=== PATIENT | female | born 1960 | race Caucasian/White ===

== ENCOUNTER → 2017-03-10 | Outpatient (CLI) | payer MEDICARE, MEDICAID ==
[~2017-03-10] MED LIST: ALBUAER3 INH; ARIP1TAB12 PO; ASPI81TA22 PO; BENA25TA6; ESTR1TAB78 VAGINAL; FLUO40CA PO; HYDR-3583 PO; HYDR-755 PO; IBUP1TAB7 PO; LINA145C PO; LOVA20TA PO; LUMBAR BACK BRA1 MIS; MELO15TA20 PO; MIRA50TA PO; OMEP20TA30 PO; OMEP20TA93 PO; OMEP40CA2 PO; REST15CA PO; TIZA4CAP3 PO; TRAZ100T10 PO; VAGI10TA VAGINAL
[2017-03-10 15:45] LABS: AUTOMATED NEUTROPHIL # 7.2 TH/MM3 (1.8-7.7); BASOPHIL # 0.1 TH/MM3 (0-0.2); BASOPHIL % 0.5 % (0.0-2.0); EOSINOPHIL # 0.3 TH/MM3 (0-0.4); EOSINOPHIL % 2.5 % (0.0-4.0); HEMATOCRIT 46.2 % (35.0-46.0); HEMO FLAGS DIFF FINAL; LYMPH % 29.4 % (9.0-44.0); LYMPHOCYTE # 3.7 TH/MM3 (1.0-4.8); MEAN CELL VOLUME 98.7 FL (80.0-100.0); MEAN CORPUSCULAR HEMOGLOBIN 32.5 PG (27.0-34.0); MEAN CORPUSCULAR HGB CONC 32.9 % (32.0-36.0); MONO % 10.1 % (0.0-8.0); NEUT % 57.5 % (16.0-70.0); PLATELET COUNT 297 TH/MM3 (150-450); RED BLOOD COUNT 4.68 MIL/MM3 (4.00-5.30); RED CELL DISTRIBUTION WIDTH 14.1 % (11.6-17.2); WHITE BLOOD COUNT 12.5 TH/MM3 (4.0-11.0)
[2017-03-10 15:50] LABS: APTT (PATIENT) 31.1 SEC (24.3-30.1); PROTHROMBIN TIME - PATIENT 10.5 SEC (9.8-11.6)
[2017-03-10 16:15] LABS: ALT (GPT) 39 U/L (10-53); ANION GAP 7 MEQ/L (5-15); AST (GOT) 22 U/L (15-37); BICARBONATE 28.9 MEQ/L (21.0-32.0); BLOOD UREA NITROGEN 21 MG/DL (7-18); CHLORIDE 107 MEQ/L (98-107); GLOMERULAR FILTRATION RATE 43 ML/MIN (>89); GLUCOSE,FASTING 88 MG/DL (74-99); POTASSIUM 4.9 MEQ/L (3.5-5.1); SODIUM (NA) 143 MEQ/L (136-145)
[2017-03-10 16:17] LABS: ALKALINE PHOSPHATASE 115 U/L (45-117); TOTAL BILIRUBIN ADULT 0.3 MG/DL (0.2-1.0)
--- NOTE | 2017-03-10 16:24 | RADRPT ---
EXAM DATE/TIME: 03/10/2017 16:06 [facility] COMPARISON: No previous studies available for comparison. INDICATIONS : Evaluate for pneumonia, pneumothorax, or communicable diseases. Pre op right pelviv mass. MEDICAL HISTORY : None. SURGICAL HISTORY : None. ENCOUNTER: Initial ACUITY: 1 day PAIN SCORE: 0/10 LOCATION: Bilateral chest FINDINGS: PA and lateral views of the chest demonstrate the lungs to be symmetrically aerated without evidence of mass, infiltrate or effusion. The cardiomediastinal contours are unremarkable. Osseous structure s are intact. CONCLUSION: 1. No acute cardiopulmonary findings. Salbador Courtney MD on March 10, 2017 at 16:15 Board Certified Radiologist. This report was verified electronically.
== END ==
LOC: CPRE 14:58
PROVIDERS: ATTEND Obstetrics & Gynecology Gynecologic Oncology
DX: Z01.810 Encounter for preprocedural cardiovascular examination (principal); Z01.811 Encounter for preprocedural respiratory examination; Z01.812 Encounter for preprocedural laboratory examination; R19.09 Other intra-abdominal and pelvic swelling, mass and lump
CPT/HCPCS: 36415; 71020; 80053; 85025; 85610; 85730

== ENCOUNTER 2017-03-27 08:08 | Observation (INO) | payer MEDICARE, MEDICAID ==
[~2017-03-27] VITALS: Ht 160 cm; Wt 87.8 kg
[2017-03-27] VITALS: BP 140/66; PULSE 61; RESP 22; TEMP 99; O2SAT 95
[~2017-03-27 08:08] MED LIST changes: -HYDR-755 PO; -LUMBAR BACK BRA1 MIS; -OMEP20TA30 PO; -OMEP40CA2 PO; -REST15CA PO; -VAGI10TA VAGINAL
[2017-03-27] MEDS ORDERED: POVIDONE IODINE 5% (ANTISEPSIS KIT) 4 APPLICATIONS EACH NARE PRN (09:15)
[2017-03-27] MEDS ORDERED: CHLORHEXIDINE GLUCONATE 2 % 1 PACK (2 CLOTHS) TOPICAL PRN (09:15)
[2017-03-27] MEDS ORDERED: METOPROLOL TARTRATE 25 MG TAB PO PRN (09:15)
[2017-03-27] MEDS ORDERED: SODIUM CHLORID 0.9% 500 ML IV PRN (09:15)
[2017-03-27] MEDS ORDERED: INSULIN HUMAN REGULAR 1,000 UNITS/10 ML VIAL SQ PRN (09:15)
[2017-03-27] MEDS ORDERED: HYDR-755 PO (09:33)
[2017-03-27] MEDS ORDERED: PENI500T PO (10:01)
[2017-03-27] MEDS ORDERED: ceFAZolin 2 GM PREMIX 50 ML ONE (10:04)
[2017-03-27] MEDS ORDERED: HEPARIN SODIUM - SQ 10,000 UNITS/ML VIAL SQ ONE (10:30)
[2017-03-27] MEDS: LACTATED RINGER'S 1000 ML IV PRN ×2 (10:30→12:40)
[2017-03-27] MEDS ORDERED: SODIUM CHLORIDE FLUSH PRN IV FLUSH (10:30)
[2017-03-27] MEDS ORDERED: ceFAZolin 2 GM PREMIX 50 ML IV SCH (10:30)
[2017-03-27] MEDS ORDERED: ONDANSETRON HCL 4 MG/2 ML VIAL IV ONE (12:00)
[2017-03-27] MEDS ORDERED: PHENYLEPH/NS 1000 MCG/10 ML SYR IV ONE (12:00)
[2017-03-27] MEDS ORDERED: ePHEDrine/NS 25 MG/5 ML SYR IV ONE (12:00)
[2017-03-27] MEDS ORDERED: ROCURONIUM INJ 50 MG/5 ML SYRINGE IV PUSH ONE (12:00)
[2017-03-27] MEDS ORDERED: LIDOCAINE HCL 1% PF 5 ML SYRINGE OTHER ONE (12:00)
[2017-03-27] MEDS ORDERED: GLYCOPYRROLATE 1 MG/5 ML SYRINGE IV PUSH ONE (12:00)
[2017-03-27] MEDS ORDERED: DEXAMETHASONE SOD PHOS 4 MG/ML VIAL IV ONE (12:00)
[2017-03-27] MEDS ORDERED: MIDAZOLAM HCL 2 MG/2 ML VIAL IV ONE (12:00)
[2017-03-27] MEDS ORDERED: MORPHINE SULFATE 4 MG/ML INJ IV ONE (12:00)
[2017-03-27] MEDS ORDERED: VECURONIUM BROMIDE 20 MG VIAL IV ONE (12:00)
[2017-03-27] MEDS ORDERED: NORMOSOL R INJ 1,000 ML IV ONE (12:00)
[2017-03-27] MEDS ORDERED: STERILE WATER FOR INJECTION 20 ML VIAL IV ONE (12:00)
[2017-03-27] MEDS ORDERED: PROPOFOL 200 MG/20 ML AMP IV ONE (12:00)
[2017-03-27] MEDS ORDERED: SUGAMMADEX SODIUM 200 MG/2 ML VIAL IV PUSH ONE ×2 (12:27)
[2017-03-27] MEDS ORDERED: LIDOCAINE 1%/EPINEPHrine 1:100,000 SOLN 20 ML VIAL ONE (13:05)
[2017-03-27] MEDS ORDERED: OMEP20TA93 PO (14:34)
[2017-03-27] MEDS ORDERED: ONDANSETRON HCL 4 MG/2 ML VIAL IVP PRN (15:45)
[2017-03-27] MEDS ORDERED: SODIUM CHLORIDE 0.9% FLUSH 10 ML FLUSH IV FLUSH PRN (15:45)
[2017-03-27] MEDS ORDERED: traZODone HCL 100 MG TAB PO PRN (15:45)
[2017-03-27] MEDS ORDERED: hydrOXYzine HCL 10 MG TAB PO PRN (15:45)
[2017-03-27] MEDS ORDERED: oxyCODONE/ACETAMINOPHEN 5 MG/325 MG TAB PO PRN ×2 (15:45)
[2017-03-27] MEDS ORDERED: PILL SPLITTER OTHER PRN (15:45)
[2017-03-27] MEDS ORDERED: DO NOT ADM ANY ANTICOAGULANT DRUGS PRN (15:50)
[2017-03-27] MEDS ORDERED: *morphine SULFATE 8 MG/ML PERIprocedure ONLY ONE ×2 (16:03→17:14)
[2017-03-27] MEDS: RESP: ALBUTEROL 2.5 MG/3 ML NEB (SCH) NEB ×2 (16:30→22:00)
[2017-03-27] MEDS: KETOROLAC TROMETHAMINE 30 MG/ML (IVP) VIAL IVP SCH ×2 (16:30→22:35)
[2017-03-27] MEDS ORDERED: BACITRACIN TOP OINT 15 GM TUBE ONE (17:10)
[2017-03-27] MEDS: D5-1/2 NS + KCL 20 MEQ INJ 1,000 ML IV SCH (18:29)
[2017-03-27 20:00] VITALS: BP 148/74; PULSE 75; RESP 22; TEMP 99.2; O2SAT 96
[2017-03-27] MEDS ORDERED: PRAVASTATIN SOD 20 MG TAB PO SCH (21:00)
[2017-03-27] MEDS: SODIUM CHLORIDE 0.9% FLUSH 10 ML FLUSH IV FLUSH SCH (22:32)
[2017-03-27] MEDS: SODIUM CHLORIDE FLUSH BID IV FLUSH SCH (22:32)
[2017-03-27] MEDS: PANTOPRAZOLE SOD 20 MG DELAYED RELEASE TAB PO SCH (22:35)
[2017-03-28 04:00] VITALS: BP 133/61; PULSE 75; RESP 20; TEMP 98.7; O2SAT 95
[2017-03-28] MEDS: KETOROLAC TROMETHAMINE 30 MG/ML (IVP) VIAL IVP SCH ×2 (04:14→09:10)
[2017-03-28] MEDS: D5-1/2 NS + KCL 20 MEQ INJ 1,000 ML IV SCH (04:17)
[2017-03-28] MEDS: RESP: ALBUTEROL 2.5 MG/3 ML NEB (SCH) NEB ×2 (04:28→09:16)
[2017-03-28 04:30] VITALS: O2SAT 96
[2017-03-28] MEDS ORDERED: OXYC1TAB63 PO (06:27)
[2017-03-28 07:52] LABS: AUTOMATED NEUTROPHIL # 13.6 TH/MM3 (1.8-7.7); BASOPHIL # 0.1 TH/MM3 (0-0.2); BASOPHIL % 0.8 % (0.0-2.0); EOSINOPHIL % 0.2 % (0.0-4.0); HEMATOCRIT 39.6 % (35.0-46.0); HEMO FLAGS DIFF FINAL; LYMPH % 18.7 % (9.0-44.0); LYMPHOCYTE # 3.4 TH/MM3 (1.0-4.8); MEAN CELL VOLUME 97.2 FL (80.0-100.0); MEAN CORPUSCULAR HEMOGLOBIN 32.2 PG (27.0-34.0); MEAN CORPUSCULAR HGB CONC 33.1 % (32.0-36.0); MONO % 5.4 % (0.0-8.0); NEUT % 74.9 % (16.0-70.0); PLATELET COUNT 244 TH/MM3 (150-450); RED BLOOD COUNT 4.07 MIL/MM3 (4.00-5.30); RED CELL DISTRIBUTION WIDTH 13.3 % (11.6-17.2); WHITE BLOOD COUNT 18.2 TH/MM3 (4.0-11.0)
[2017-03-28 08:00] VITALS: BP 135/73; PULSE 64; RESP 19; TEMP 98.3; O2SAT 94
[2017-03-28 08:29] LABS: BICARBONATE 24.6 MEQ/L (21.0-32.0); POTASSIUM 4.1 MEQ/L (3.5-5.1)
[2017-03-28] MEDS ORDERED: FLUoxetine HCL 20 MG CAP PO SCH (09:00)
[2017-03-28] MEDS ORDERED: ARIPiprazole 5 MG TAB PO SCH (09:00)
[2017-03-28] MEDS ORDERED: Linaclotide (Linzess) 145 MCG PO SCH (09:00)
[2017-03-28] MEDS: PANTOPRAZOLE SOD 20 MG DELAYED RELEASE TAB PO SCH (09:09)
[2017-03-28] MEDS: SODIUM CHLORIDE FLUSH BID IV FLUSH SCH (09:10)
[2017-03-28] MEDS: SODIUM CHLORIDE 0.9% FLUSH 10 ML FLUSH IV FLUSH SCH (09:10)
[2017-03-28 09:17] VITALS: O2SAT 95
[2017-03-28 10:10] VITALS: RESP 18
--- NOTE | 2017-03-28 11:36 | MP ---
cc: DANNA YEBOAH MD, KELLY L. MD DATE OF SURGERY 03/27/2017 PREOPERATIVE DIAGNOSIS Right ovarian mass. POSTOPERATIVE DIAGNOSIS Right ovarian mass. PROCEDURE Robotic-assisted laparoscopic bilateral salpingo-oophorectomy. SURGEON Anai Chiang MD CLOTH EXAMINER Greer orthopedic assistant ANESTHESIA General endotracheal anesthesia ESTIMATED BLOOD LOSS 50 cc IV FLUIDS 1200 cc URINE OUTPUT 450 cc HISTORY This is a 56-year-old female found on exam and imaging to have a complex right ovarian mass approximately 4 cm in greatest dimension. She had some calcifications raising the radiographic possibility of a dermoid. The contralateral tube and ovary appeared OK with some leiomyomas in the uterus, but she has had no postmenopausal bleeding or other symptomatology. She was counseled regarding options. She was in favor of surgery. She was seen in the preop holding area where we again discussed the pros and cons of removing both tubes and ovaries and/or hysterectomy in the setting of both benign and malignant findings. Discussion ensued, questions were answered. She was in favor of having both tubes and ovaries removed given that she is menopausal and wishes to prevent future problems in the other ovary even if the mass is benign. However, in the setting of benign finding, she wished to keep her surgery as conservative as possible and wished to maintain her uterus and cervix and did not want a hysterectomy unless malignancy was present. In the setting of malignancy, she agreed to bilateral salpingo-oophorectomy, hysterectomy, staging biopsies as indicated. FINDINGS The right ovary was enlarged approximately 4 cm complex in nature with a solid smooth surface component. There were minimal adhesions of the ovary to the right pelvic sidewall. The fallopian tubes appeared normal bilaterally and the left ovary appeared normal. The uterus had some prominence that appeared to be leiomyomas. There are no peritoneal implants, no adenopathy and no other changes to suggest malignancy. 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 No evidence of malignancy. PROCEDURE She was taken to the operating room, placed in the dorsolithotomy position after general endotracheal anesthesia was administered. A time-out was undertaken. She was identified by sight recognition and hospital ID bracelet and the proposed procedure was reviewed and confirmed. She was carefully positioned in padded Issac stirrups. Her arms were padded and secured to her sides. She was secured to the operating table with egg crate padding and tape in a cross the chest over the shoulder fashion. All sites were noted to be properly aligned with no malalignments or pressure points. She was prepped and draped in a sterile fashion, placed in high lithotomy position. The cervix was grasped, uterine cavity sounded. Cervix dilated and a small V-Care manipulator was inserted and secured in the usual fashion. Galindo catheter placed in the bladder. She was returned to low lithotomy position, a change of sterile gloves was undertaken and we completed draping in anticipation of laparoscopy. After confirming that an orogastric tube was in the stomach on suction with manual elevation of the abdominal wall and direct laparoscopic visualization, a 5 mm cannula placed in the left upper quadrant and an atraumatic entry was confirmed. Carbon dioxide gas was insufflated and under laparoscopic visualization, a 12-mm cannula placed in midline above the umbilicus. An 8 mm cannulas was in the right upper quadrant, left lateral quadrant and the original five exchanged for a 8-mm cannula. She was placed in Trendelenburg position. Peritoneal washings were obtained for cytology. Small bowel was folded back on its mesenteric root. Three Ray-Eddie sponges were placed around the root of small bowel mesentery. The robotic system was brought into the operative field and attached in the usual fashion. Monopolar scissors, fenestrated bipolar forceps and Prograsp manipulators were placed in arms number one, two and three respectively and took my place at the surgeon's console. The right retroperitoneal dissection was carried out. The right ureter was identified. The right infundibulopelvic ligament was isolated. The intervening peritoneum was opened. The infundibulopelvic ligament was cauterized at the level of the pelvic brim and transected. The dissection was carried distally toward the uterus until the right utero-ovarian ligament was isolated which was then cauterized and transected thereby removing the right tube and ovary which were placed in the right pericolic gutter for later retrieval. Similar steps were carried out of the left side where the left retroperitoneal dissection was carried out. The left ureter was identified. The left infundibulopelvic ligament was isolated. The infundibulopelvic ligament was isolated to the level of the pelvic brim where it was cauterized and transected. Dissection was carried distally toward the uterus until the left utero-ovarian ligament was isolated, cauterized and transected thereby removing the left tube and ovary which were placed in the right pericolic gutter for later retrieval. Small bleeders rendered hemostatic with bipolar cautery. Hemostatic Surgicel powder was placed in the dissection areas on the lateral sides of each of the ureters and given the benign appearance and pending pathology, it was felt that all reasonable surgical objectives had been completed. The robotic instruments were removed. The robotic system was disengaged from the operative field. I reentered the bedside under sterile condition. Each of the three Ray-Eddie sponges were removed separately each were inspected and noted to be removed in their entirety. A 12 cm EndoCatch bag was introduced and deployed. Both tubes and ovaries were placed in the EndoCatch bag and the bag was closed, brought up to the abdominal wall through the 12 mm incision. Using ring forceps and graspers, the tissue was removed. The intact left tube and ovary were isolated and removed and sent for permanent histopathologic analysis and the remaining pieces of the right tube and ovary were removed still intact within the bag and this was sent for frozen section analysis. Inspection confirmed all sites were hemostatic. There were no remaining foreign objects in the peritoneal cavity. Preliminary counts were correct and attention was directed toward closing. The 12 mm fascial defect closed using the fascia closure device with 0 Vicryl sutures tied securely rendered the fascia completely hemostatic and airtight. The remaining cannulas were withdrawn. Carbon dioxide gas was removed from the peritoneal cavity. 3-0 Vicryl subcutaneous, 3-0 Vicryl subcuticular and Steri-Strips used to close these incisions. She was returned to dorsolithotomy position. The V-Care manipulator was removed. The suture site which rendered hemostatic with topical silver nitrate. There were no remaining foreign objects in the vagina. Final counts were correct. 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 Therefore, she was returned to dorsal supine position and was pending reversal of anesthesia when I left the operating room to precede her to the Post Anesthesia Care Unit. MD BRANDON Sheppard/RASHEL /8:27 AM /11:10 AM
--- NOTE | 2017-03-28 22:24 | MD ---
cc: DANNA YEBOAH MD, KELLY L. MD ADMISSION DATE: 03/27/2017 DISCHARGE DATE: 03/28/2017 PROCEDURE 03/27/2017 - robotic-assisted laparoscopic bilateral salpingo-oophorectomy. HOSPITAL COURSE She did well in the early postop period. Hemodynamically stable. Ins and outs 2200 over 650. Labs pending at the time of this dictation. PHYSICAL EXAMINATION VITAL SIGNS: Afebrile, pulse 68-75, respirations 16-22, blood pressure 130-149 over 52-74, O2 saturations greater than or equal to 95%. GENERAL: Alert and oriented x3. LUNGS: Clear except for mild basilar rales. CARDIOVASCULAR: Regular rate and rhythm. ABDOMEN: Soft. Incision is clean and dry. HORTICULTURE SUPERVISOR: no bleeding. EXTREMITIES: Nontender. ASSESSMENT Postop day #1 findings at surgery, preliminary pathology discussed and reviewed. activities and restrictions reviewed. Questions were answered. She expressed good understanding. PLAN Anticipate discharge to home. She is to resume prior medications. She will have prescription for Percocet. She is to contact our office to schedule follow up in 2 weeks and our office number is made available should she have any questions or problems between now and the time of scheduled followup. MD BRANDON Sheppard/ /6:28 AM /10:12 PM
[2017-03-30] MEDS ORDERED: OMEP20TA93 PO (14:42)
[2017-04-02] MEDS ORDERED: OMEP20CA2 PO (19:20)
== END 2017-03-28 12:10 | disposition home or self-care (01) ==
LOC: HSDC 08:08 → HSDI 15:38 → N07A 18:05
PROVIDERS: ADMIT Obstetrics & Gynecology Gynecologic Oncology; ATTEND Obstetrics & Gynecology Gynecologic Oncology
DX: D27.0 Benign neoplasm of right ovary (principal); N83.8 Other noninflammatory disorders of ovary, fallopian tube and broad ligament; E78.5 Hyperlipidemia, unspecified; M79.7 Fibromyalgia; K58.9 Irritable bowel syndrome, unspecified; Q05.9 Spina bifida, unspecified; Z79.899 Other long term (current) drug therapy
CPT/HCPCS: 58661; 80048; 85025; 86850; 86900; 86901; 88112; 88305; 88307; 88331; 94150; 94640; 94664; 96365; 96366; 96375; 96376; G0378; J0690; J1100; J1644; J1885; J2250; J2270; J2370; J2405; J3010; J3480; J7120; J7613; S2900

== ENCOUNTER 2017-06-03 12:46 | Inpatient (IN) | payer MEDICARE, MEDICAID ==
[~2017-06-03] VITALS: Ht 160 cm; Wt 85.0 kg
[~2017-06-03 12:46] MED LIST changes: +HYDR-755 PO; +OMEP20CA2 PO; -OMEP20TA93 PO; +OXYC1TAB63 PO; +PENI500T PO
[2017-06-03 12:52] VITALS: BP 126/79; PULSE 86; RESP 20; TEMP 98.7; O2SAT 97
[2017-06-03] MEDS ORDERED: SODIUM CHLOR 0.9% 1000 ML INJ 1,000 ML IV ONE (13:30)
[2017-06-03] MEDS ORDERED: ONDANSETRON HCL 4 MG/2 ML VIAL IV PUSH ONE (13:30)
[2017-06-03] MEDS ORDERED: MORPHINE SULFATE 4 MG/ML INJ IV PUSH ONE ×2 (13:30→16:45)
--- NOTE | 2017-06-03 13:35 | PD ---
HPI Chief Complaint: Abdominal Pain Time Seen by Provider: 13:10 Travel History International Travel<30 days: No Contact w/Intl Traveler<30days: No Traveled to known affect area: No History of Present Illness HPI 56-year-old female with a history of chronic bronchitis, spina bifida occulta(? ) and depression presents emergency department complaining of midepigastric pain that radiates to the back, nausea, vomiting for approximately 3 days. Patient states she was watching TV when the pain started and describes the pain as sharp, "keweenaw claws", squeezing and constant. Patient states that the pain has been worsening over the last couple days which is the reason she is here today. States the pain is moderate and nothing seems to relieve or worsen her pain. Patient states that she has been trying to eat chicken broth however, she is persistently nauseous. Patient denies hematochezia, melena, hematemesis. Says her bowel movements have been normal for her. Patient states that she smokes half a pack per day and drinks alcohol approximately once a month. Patient denies cardiac history. States she had a partial hysterectomy in April this year. PFSH Past Medical History Arthritis: No Asthma: Yes Anxiety: Yes Depression: Yes Heart Rhythm Problems: No Cancer: No Cardiovascular Problems: No High Cholesterol: Yes Chest Pain: No Congestive Heart Failure: No Diabetes: No Diminished Hearing: No Endocrine: No Gastrointestinal Disorders: Yes GERD: Yes Genitourinary: Yes (Incontinent of urine) Hepatitis: No Hiatal Hernia: No Immune Disorder: No Musculoskeletal: No Neurologic: Yes (spina bifida) Psychiatric: No Reproductive: No Respiratory: No Migraines: Yes Thyroid Disease: No Ulcer: Yes Tetanus Vaccination: > 5 Years Influenza Vaccination: No ?: Not Menopausal: Yes Past Surgical History Abdominal Surgery: Yes (colonoscopy) AICD: No Cardiac Surgery: No Ear Surgery: No Endocrine Surgery: No Eye Surgery: No Genitourinary Surgery: No Gynecologic Surgery: No Hysterectomy: Yes Joint Replacement: No Oral Surgery: No Pacemaker: No Thoracic Surgery: No Other Surgery: No Social History Alcohol Use: No Tobacco Use: No Substance Use: No Allergies-Medications (Allergen,Severity, Reaction): Coded Allergies: No Known Allergies (Unverified , 06/03/17) Reported Meds & Prescriptions Reported Meds & Active Scripts Active Omeprazole 20 Mg Cap 20 Mg PO BID Oxycodone-Acetaminophen 5-325 (Oxycodone HCl/Acetaminophen) 5 Mg-325 Mg Tablet 1 Tab PO Q4H PRN Myrbetriq (Mirabegron) 50 Mg Tab 50 Mg PO DAILY Trazodone (Trazodone HCl) 100 Mg Tablet 200 Mg PO HS PRN Lovastatin 20 Mg Tab 20 Mg PO HS Proair Hfa 8.5 GM Inh (Albuterol Sulfate) 90 Mcg/Act Aer 1 Puff INH Q6HR PRN 108 mcg/actuation Reported Hydroxyzine HCl 10 Mg Tab 10 Mg PO TID PRN Ibuprofen 800 Mg Tab 800 Mg PO TID Aspirin EC Low Dose (Aspirin) 81 Mg Tabec 81 Mg PO DAILY Meloxicam 15 Mg Tab 15 Mg PO DAILY Yuvafem Vaginal Tab (Estradiol Vaginal Tab) 10 Mcg Tab 10 Mcg VAGINAL 2XWEEK Tizanidine (Tizanidine HCl) 4 Mg Cap 4 Mg PO TID Hydrocodone-Acetaminophen 10-325 mg Tab PO Q4H PRN Benadryl Allergy (Diphenhydramine HCl) 25 Mg Tablet 25 Mg PRN Linzess (Linaclotide) 145 Mcg Cap 145 Mcg PO DAILY Fluoxetine (Fluoxetine HCl) 40 Mg Cap 40 Cap PO DAILY Aripiprazole 10 Mg Tab 5 Mg PO DAILY Review of Systems Except as stated in HPI: all other systems reviewed are Neg Physical Exam Narrative GENERAL: Well-developed well-nourished no apparent distress SKIN: Focused skin assessment warm/dry. HEAD: Atraumatic. Normocephalic. EYES: Pupils equal and round. No scleral icterus. No injection or drainage. ENT: No nasal bleeding or discharge. Mucous membranes pink and moist. NECK: Trachea midline. No JVD. CARDIOVASCULAR: Regular rate and rhythm. No murmur appreciated. RESPIRATORY: No accessory muscle use. Clear to auscultation. Breath sounds equal bilaterally. GASTROINTESTINAL: Abdomen soft, diffusely tender to percussion and palpation, no masses. 3 scars mid abdomen consistent with patient's recent history of partial hysterectomy. MUSCULOSKELETAL: No obvious deformities. No clubbing. No cyanosis. No edema. No CVA tenderness NEUROLOGICAL: Awake and alert. No obvious cranial nerve deficits. Motor grossly within normal limits. Normal speech. PSYCHIATRIC: Appropriate mood and affect; insight and judgment normal. Data Data Last Documented VS Vital Signs Date Time Temp Pulse Resp B/P (MAP) Pulse Ox O2 Delivery O2 Flow Rate FiO2 06/03/17 15:32 76 19 102/59 (73) 97 Room Air 06/03/17 12:52 98.7 Orders Orders Electrocardiogram (06/03/17 ) Complete Blood Count With Diff (06/03/17 13:21) Comprehensive Metabolic Panel (06/03/17 13:21) Prothrombin Time / Inr (Pt) (06/03/17 13:21) Act Partial Throm Time (Ptt) (06/03/17 13:21) Troponin I (06/03/17 13:21) Lipase (06/03/17 13:21) Chest, Single Ap (06/03/17 13:21) Morphine Inj (Morphine Inj) (06/03/17 13:30) Ondansetron Inj (Zofran Inj) (06/03/17 13:30) Sodium Chlor 0.9% 1000 Ml Inj (Ns 1000 M (06/03/17 13:30) Us Abdomen Gallbladder (06/03/17 ) Urinalysis - C+S If Indicated (06/03/17 15:25) Admit To Inpatient (06/03/17 ) Code Status (06/03/17 16:03) Vital Signs (Adult) Q4H (06/03/17 16:03) Activity Oob Ad Jami (06/03/17 16:03) Unmanned Equipment Operator / Telemetry .CONTINUOUS (06/03/17 16:03) Intake + Output LAURO.QSHIFT (06/03/17 16:03) Notify Dr: Other (06/03/17 16:03) Sodium Chlor 0.9% 1000 Ml Inj (Ns 1000 M (06/03/17 16:03) Sodium Chloride 0.9% Flush (Ns Flush) (06/03/17 16:15) Sodium Chloride 0.9% Flush (Ns Flush) (06/03/17 21:00) Acetaminophen (Tylenol) (06/03/17 16:15) Ondansetron Inj (Zofran Inj) (06/03/17 16:15) Basic Metabolic Panel (Bmp) (06/04/17 06:00) Complete Blood Count With Diff (06/04/17 06:00) Creatine Kinase (Cpk) (06/03/17 16:03) Creatine Kinase (Cpk) (06/03/17 22:03) Troponin I (06/03/17 16:03) Troponin I (06/03/17 22:03) Blood Culture (06/03/17 16:03) Resp Oxygen Jackson C Titrat 1-4 L (06/03/17 ) Case Management Consult (06/03/17 16:03) Scd Bilateral/Knee High LAURO.BID (06/03/17 16:03) Naloxone Inj (Narcan Inj) (06/03/17 16:15) Sennosides (Senokot) (06/03/17 16:15) Bisacodyl Supp (Dulcolax Supp) (06/03/17 16:15) Lactulose Liq (Lactulose Liq) (06/03/17 16:15) Inpatient Certification (06/03/17 ) Consult General Surgery (06/03/17 ) Piperacil-Tazo 3.375 Gm Premix (Zosyn 3. (06/03/17 17:00) Admit Order (Ed Use Only) (06/03/17 ) Labs Laboratory Tests Test 06/03/17 13:25 06/03/17 14:25 Blood Urea Nitrogen 13 MG/DL Creatinine 1.17 MG/DL Random Glucose 142 MG/DL Total Protein 7.5 GM/DL Albumin 2.9 GM/DL Calcium Level 9.4 MG/DL Alkaline Phosphatase 299 U/L Aspartate Amino Transf (AST/SGOT) 102 U/L Alanine Aminotransferase (ALT/SGPT) 101 U/L Total Bilirubin 3.0 MG/DL Sodium Level 138 MEQ/L Potassium Level 3.8 MEQ/L Chloride Level 106 MEQ/L Carbon Dioxide Level 23.7 MEQ/L Anion Gap 8 MEQ/L Estimat Glomerular Filtration Rate 48 ML/MIN Troponin I LESS THAN 0.02 NG/ML Lipase 57 U/L White Blood Count 17.0 TH/MM3 Red Blood Count 3.78 MIL/MM3 Hemoglobin 12.5 GM/DL Hematocrit 36.5 % Mean Corpuscular Volume 96.6 FL Mean Corpuscular Hemoglobin 33.0 PG Mean Corpuscular Hemoglobin Concent 34.2 % Red Cell Distribution Width 13.6 % Platelet Count 248 TH/MM3 Mean Platelet Volume 9.1 FL Neutrophils (%) (Auto) 83.8 % Lymphocytes (%) (Auto) 8.1 % Monocytes (%) (Auto) 7.2 % Eosinophils (%) (Auto) 0.5 % Basophils (%) (Auto) 0.4 % Neutrophils # (Auto) 14.2 TH/MM3 Lymphocytes # (Auto) 1.4 TH/MM3 Monocytes # (Auto) 1.2 TH/MM3 Eosinophils # (Auto) 0.1 TH/MM3 Basophils # (Auto) 0.1 TH/MM3 CBC Comment DIFF FINAL Differential Comment Prothrombin Time 10.8 SEC Prothromb Time International Ratio 1.1 RATIO Activated Partial Thromboplast Time 35.0 SEC MDM Medical Decision Making Medical Screen Exam Complete: Yes Emergency Medical Condition: Yes Differential Diagnosis Pancreatitis, cholecystitis, gastritis Narrative Course 56-year-old female with a history of chronic bronchitis, spina bifida occulta(? ) and depression presents emergency department complaining of midepigastric pain that radiates to the back, nausea, vomiting for approximately 3 days. Patient states she was watching TV when the pain started and describes the pain as sharp, "keweenaw claws", squeezing and constant. Patient states that the pain has been worsening over the last couple days which is the reason she is here today. States the pain is moderate and nothing seems to relieve or worsen her pain. Patient states that she has been trying to eat chicken broth however, she is persistently nauseous. Patient denies hematochezia, melena, hematemesis. Patient states that she smokes half a pack per day and drinks alcohol approximately once a month. Patient denies cardiac history. According to ODELL Dawson, EVAC placed her on oxygen as she was "profusely diuretic". Patient is not normally on oxygen at home. She remains 97% on RA, O2 DC'd. Morphine, Zofran, normal saline IV bolus administered. EKG demonstrates sinus rhythm. Possible T-wave inversions which is a change from February 2017 in V2 and V3. Cardiac enzymes negative. CT abdomen pelvis canceled in lieu of an ultrasound. Please see Dr. Darby's note for more information and dispo. Condition: Stable Raysa Connell Jun 03, 2017 13:35
[2017-06-03 14:12] LABS: ALBUMIN 2.9 GM/DL (3.4-5.0); ALT (GPT) 101 U/L (10-53); AST (GOT) 102 U/L (15-37); BICARBONATE 23.7 MEQ/L (21.0-32.0); BLOOD UREA NITROGEN 13 MG/DL (7-18); CALCIUM 9.4 MG/DL (8.5-10.1); CHLORIDE 106 MEQ/L (98-107); CREATININE 1.17 MG/DL (0.50-1.00); GLOMERULAR FILTRATION RATE 48 ML/MIN (>89); GLUCOSE,RANDOM 142 MG/DL (74-106); SODIUM (NA) 138 MEQ/L (136-145)
[2017-06-03 14:14] LABS: ALKALINE PHOSPHATASE 299 U/L (45-117); TOTAL PROTEIN 7.5 GM/DL (6.4-8.2); TROPONIN I LESS THAN 0.02 NG/ML (0.02-0.05)
[2017-06-03 15:07] LABS: AUTOMATED NEUTROPHIL # 14.2 TH/MM3 (1.8-7.7); BASOPHIL # 0.1 TH/MM3 (0-0.2); BASOPHIL % 0.4 % (0.0-2.0); EOSINOPHIL # 0.1 TH/MM3 (0-0.4); EOSINOPHIL % 0.5 % (0.0-4.0); HEMATOCRIT 36.5 % (35.0-46.0); HEMOGLOBIN 12.5 GM/DL (11.6-15.3); LYMPH % 8.1 % (9.0-44.0); LYMPHOCYTE # 1.4 TH/MM3 (1.0-4.8); MEAN CELL VOLUME 96.6 FL (80.0-100.0); MEAN CORPUSCULAR HGB CONC 34.2 % (32.0-36.0); MEAN PLATELET VOLUME 9.1 FL (7.0-11.0); MONO % 7.2 % (0.0-8.0); MONOCYTE # 1.2 TH/MM3 (0-0.9); NEUT % 83.8 % (16.0-70.0); PLATELET COUNT 248 TH/MM3 (150-450); RED BLOOD COUNT 3.78 MIL/MM3 (4.00-5.30); RED CELL DISTRIBUTION WIDTH 13.6 % (11.6-17.2)
[2017-06-03 15:19] LABS: INTERNATIONAL NORMALIZED RATIO 1.1 RATIO; PROTHROMBIN TIME - PATIENT 10.8 SEC (9.8-11.6)
[2017-06-03 15:32] VITALS: BP 102/59; PULSE 76; RESP 19; O2SAT 97
--- NOTE | 2017-06-03 15:37 | RADRPT ---
EXAM DATE/TIME: 06/03/2017 15:08 [facility] COMPARISON: US ABDOMEN - PANCREAS, November 16, 2012, 16:42. EXTERNAL COMPARISON : [facility] CT ABDOMEN W/O CONTRAST, December 07, 2009CT ABDOMEN AND PELVI S W/CONTRAST, 2016. INDICATIONS : Right upper quadrant pain. MEDICAL HISTORY : Hypercholesterolemia. Gastroesophageal reflux disease. Glasses. Spina bifida. Migraine. Hyperlipide khari. Asthma. Ulcer. Fibromyalgia. Anxiety. Depression. SURGICAL HISTORY : Hysterectomy. Colonoscopy. ENCOUNTER: Subsequent ACUITY: 1 week PAIN SCORE: 8/10 LOCATION: Right upper quadrant MEASUREMENTS: LIVER: 14.0 cm length COMMON DUCT: 5 mm RIGHT KIDNEY: 10.3 x 3.3 x 4.4 cm FINDINGS: LIVER: Normal echotexture without focal lesion or ductal dilatation. COMMON DUCT: No intraluminal mass or stone visualized. GALLBLADDER: The gallbladder wall is thickened at 4-5 mm. There is sludge within the gallbladder and multiple mobi le gallstones the largest at the neck measuring 3.4 cm in size. There is no pericholecystic fluid PANCREAS: The visualized portions are within normal limits. RIGHT KIDNEY: No evidence of hydronephrosis, stone, or mass. CONCLUSION: Sludge and stones in the gallbladder with thickened wall consistent with cholecystitis. Otherwise neg ative exam Lito Burnett MD on June 03, 2017 at 15:31 Board Certified Radiologist. This report was verified electronically.
--- NOTE | 2017-06-03 15:47 | RADRPT ---
EXAM DATE/TIME: 06/03/2017 14:17 [facility] COMPARISON: CHEST PA & LAT, March 10, 2017, 16:06. INDICATIONS : Chest pain. MEDICAL HISTORY : None. SURGICAL HISTORY : None. ENCOUNTER: Initial ACUITY: 1 day PAIN SCORE: 10/10 LOCATION: Bilateral chest FINDINGS: A single view of the chest demonstrates the lungs to be symmetrically aerated without evidence of mas s, infiltrate or effusion. The cardiomediastinal contours are unremarkable. Osseous structures are intact. CONCLUSION: No acute disease. No significant change has occurred. Lito Burnett MD on June 03, 2017 at 15:44 Board Certified Radiologist. This report was verified electronically.
[2017-06-03] MEDS: SODIUM CHLOR 0.9% 1000 ML INJ 1,000 ML IV SCH (16:03)
[2017-06-03] MEDS ORDERED: BISACODYL 10 MG SUPP RECTAL PRN (16:15)
[2017-06-03] MEDS ORDERED: ACETAMINOPHEN 325 MG TAB PO PRN (16:15)
[2017-06-03] MEDS ORDERED: NALOXONE HCL 0.4 MG/ML AMP IV PUSH PRN (16:15)
--- NOTE | 2017-06-03 16:25 | HHI.HP ---
HPI Service [facility] Primary Care Physician Unknown Admission Diagnosis Diagnoses: Chief Complaint: Abdominal Pain Travel History International Travel<30 Days: No Contact w/Intl Traveler <30 Da: No Traveled to Known Affected Are: No History of Present Illness This is a pleasant 56-year-old female with chronic Bronchitis, Spina bifida occulta, Depression show came to ER with Abdominal pain midepigastric that radiates to the back, nausea and Vomit for the last three days, described as Sharp sensation. Patient states that the pain has been worsening over the last couple days, Patient denies hematochezia, melena, hematemesis. Says her bowel movements have been normal for her. Patient states that she smokes half a pack per day and drinks alcohol approximately once a month. Patient denies cardiac history. States she had a partial hysterectomy in April this year. Patient status post Abdominal Ultrasound found Cholecystitis and Cholelithiasis , will have surgery tomorrow. Review of Systems Constitutional: DENIES: Fever, Chills, Change in appetite Endocrine: DENIES: Heat/cold intolerance Eyes: DENIES: Blurred vision, Eye pain Gastrointestinal: COMPLAINS OF: Abdominal pain, Nausea, Vomiting Except as stated in HPI: all other systems reviewed are Neg Past Family Social History Past Medical History OA COPD Anxiety disorder Hyperlipidemia GERD Spina Bifida Occulta Overactive bladder Depression Past Surgical History Partial Hysterectomy Reported Medications Reported Meds & Active Scripts Active Omeprazole 20 Mg Cap 20 Mg PO BID Oxycodone-Acetaminophen 5-325 (Oxycodone HCl/Acetaminophen) 5 Mg-325 Mg Tablet 1 Tab PO Q4H PRN Myrbetriq (Mirabegron) 50 Mg Tab 50 Mg PO DAILY Trazodone (Trazodone HCl) 100 Mg Tablet 200 Mg PO HS PRN Lovastatin 20 Mg Tab 20 Mg PO HS Proair Hfa 8.5 GM Inh (Albuterol Sulfate) 90 Mcg/Act Aer 1 Puff INH Q6HR PRN 108 mcg/actuation Reported Hydroxyzine HCl 10 Mg Tab 10 Mg PO TID PRN Ibuprofen 800 Mg Tab 800 Mg PO TID Aspirin EC Low Dose (Aspirin) 81 Mg Tabec 81 Mg PO DAILY Meloxicam 15 Mg Tab 15 Mg PO DAILY Yuvafem Vaginal Tab (Estradiol Vaginal Tab) 10 Mcg Tab 10 Mcg VAGINAL 2XWEEK Tizanidine (Tizanidine HCl) 4 Mg Cap 4 Mg PO TID Hydrocodone-Acetaminophen 10-325 mg Tab PO Q4H PRN Benadryl Allergy (Diphenhydramine HCl) 25 Mg Tablet 25 Mg PRN Linzess (Linaclotide) 145 Mcg Cap 145 Mcg PO DAILY Fluoxetine (Fluoxetine HCl) 40 Mg Cap 40 Cap PO DAILY Aripiprazole 10 Mg Tab 5 Mg PO DAILY Allergies: Coded Allergies: No Known Allergies (Unverified , 06/03/17) Active Ordered Medications Current Medications Medications (Trade) Dose Ordered Sig/Jose Route Start Time Stop Time Status Last Admin Sodium Chloride 1,000 ml @ 100 mls/hr Q10H IV 06/03/17 16:03 (NS Flush) 2 ml UNSCH PRN IV FLUSH 06/03/17 16:15 (NS Flush) 2 ml BID IV FLUSH 06/03/17 21:00 (Tylenol) 650 mg Q4H PRN PO 06/03/17 16:15 (Zofran Inj) 4 mg Q6H PRN IVP 06/03/17 16:15 (Narcan Inj) 0.4 mg UNSCH PRN IV PUSH 06/03/17 16:15 (Senokot) 17.2 mg Q12H PRN PO 06/03/17 16:15 (Dulcolax Supp) 10 mg DAILY PRN RECTAL 06/03/17 16:15 (Lactulose Liq) 30 ml DAILY PRN PO 06/03/17 16:15 Piperacillin Sod/ Tazobactam Sod 50 ml @ 100 mls/hr Q6H IV 06/03/17 17:00 Family History Mother and Father with Hypertension Social History Tobacco dependence half pack of cigarettes daily Physical Exam Vital Signs Vital Signs Date Time Temp Pulse Resp B/P (MAP) Pulse Ox O2 Delivery O2 Flow Rate FiO2 06/03/17 15:32 76 19 102/59 (73) 97 Room Air 06/03/17 12:52 98.7 86 20 126/79 (95) 97 Physical Exam GENERAL: Obese patient in no acute distress. SKIN: Focused skin assessment warm/dry. HEAD: Atraumatic. Normocephalic. EYES: Pupils equal and round. No scleral icterus. No injection or drainage. ENT: No nasal bleeding or discharge. Mucous membranes pink and moist. NECK: Trachea midline. No JVD. CARDIOVASCULAR: Regular rate and rhythm. No murmur appreciated. RESPIRATORY: No accessory muscle use. Clear to auscultation. Breath sounds equal bilaterally. GASTROINTESTINAL: Sort, tender on diffuse palpation. MUSCULOSKELETAL: No obvious deformities. No clubbing. No cyanosis. No edema. No CVA tenderness NEUROLOGICAL: Awake and alert. No obvious cranial nerve deficits. Motor grossly within normal limits. Normal speech. PSYCHIATRIC: Appropriate mood and affect; insight and judgment normal. Laboratory Laboratory Tests Test 06/03/17 13:25 06/03/17 14:25 Blood Urea Nitrogen 13 Creatinine 1.17 Random Glucose 142 Total Protein 7.5 Albumin 2.9 Calcium Level 9.4 Alkaline Phosphatase 299 Aspartate Amino Transf (AST/SGOT) 102 Alanine Aminotransferase (ALT/SGPT) 101 Total Bilirubin 3.0 Sodium Level 138 Potassium Level 3.8 Chloride Level 106 Carbon Dioxide Level 23.7 Anion Gap 8 Estimat Glomerular Filtration Rate 48 Troponin I LESS THAN 0.02 Lipase 57 White Blood Count 17.0 Red Blood Count 3.78 Hemoglobin 12.5 Hematocrit 36.5 Mean Corpuscular Volume 96.6 Mean Corpuscular Hemoglobin 33.0 Mean Corpuscular Hemoglobin Concent 34.2 Red Cell Distribution Width 13.6 Platelet Count 248 Mean Platelet Volume 9.1 Neutrophils (%) (Auto) 83.8 Lymphocytes (%) (Auto) 8.1 Monocytes (%) (Auto) 7.2 Eosinophils (%) (Auto) 0.5 Basophils (%) (Auto) 0.4 Neutrophils # (Auto) 14.2 Lymphocytes # (Auto) 1.4 Monocytes # (Auto) 1.2 Eosinophils # (Auto) 0.1 Basophils # (Auto) 0.1 CBC Comment DIFF FINAL Differential Comment Prothrombin Time 10.8 Prothromb Time International Ratio 1.1 Activated Partial Thromboplast Time 35.0 Result Diagram: 06/03/17 1425 06/03/17 1325 Imaging Last Impressions Chest X-Ray 06/03/17 1321 Signed Impressions: Service Date/Time: Saturday, June 03, 2017 14:17 - CONCLUSION: No acute disease. No significant change has occurred. Lito Burnett MD Gall Bladder Ultrasound 06/03/17 0000 Signed Impressions: Service Date/Time: Saturday, June 03, 2017 15:08 - CONCLUSION: Sludge and stones in the gallbladder with thickened wall consistent with cholecystitis. Otherwise negative exam MD Bozena Adams VTE Risk Assessment Bozena VTE Risk Assessment: Mod/High Risk (score >= 2) Caprini Risk Assessment Model Point Value = 1 Point Value = 2 Point Value = 3 Point Value = 5 Age 41-60 Minor surgery BMI > 25 kg/m2 Swollen legs Varicose veins or History of unexplained or recurrent spontaneous Oral contraceptives or hormone replacement Sepsis (< 1 month) Serious lung disease, including pneumonia (< 1 month) Abnormal pulmonary function Acute myocardial infarction Congestive heart failure (< 1 month) History of inflammatory bowel disease Medical patient at bed rest Age 61-74 Arthroscopic surgery Major open surgery (> 45 min) Laparoscopic surgery (> 45 min) Malignancy Confined to bed (> 72 hours) Immobilizing plaster cast Central venous access Age >= 75 History of VTE Family history of VTE Factor V Leiden Prothrombin [id number] Lupus anticoagulant Anticardiolipin antibodies Elevated serum homocysteine Heparin-induced thrombocytopenia Other congenital or acquired thrombophilia Stroke (< 1 month) Elective arthroplasty Hip, pelvis, or leg fracture Acute spinal cord injury (< 1 month) Prophylaxis Regimen Total Risk Factor Score Risk Level Prophylaxis Regimen 0-1 Low Early ambulation 2 Moderate Order ONE of the following: *Sequential Compression Device (SCD) *Heparin 5000 units SQ BID 3-4 Higher Order ONE of the following medications: *Heparin 5000 units SQ TID *Enoxaparin/Lovenox 40 mg SQ daily (WT < 150 kg, CrCl > 30 mL/min) *Enoxaparin/Lovenox 30 mg SQ daily (WT < 150 kg, CrCl > 10-29 mL/min) *Enoxaparin/Lovenox 30 mg SQ BID (WT < 150 kg, CrCl > 30 mL/min) AND/OR *Sequential Compression Device (SCD) 5 or more Highest Order ONE of the following medications: *Heparin 5000 units SQ TID (Preferred with Epidurals) *Enoxaparin/Lovenox 40 mg SQ daily (WT < 150 kg, CrCl > 30 mL/min) *Enoxaparin/Lovenox 30 mg SQ daily (WT < 150 kg, CrCl > 10-29 mL/min) *Enoxaparin/Lovenox 30 mg SQ BID (WT < 150 kg, CrCl > 30 mL/min) AND *Sequential Compression Device (SCD) Assessment and Plan Assessment and Plan 1. Cholecystitis/Cholelithiasis discussed with General origination specialist doctor Steve Moon and recommended for surgery tomorrow, Pain medicine and NPO at midnight. giving Zosyn for coverage probable infection 2. OA by history on hold NSAIDs 3. COPD not exacerbated, continue bronchodilator, Mucolytic and incentive spirometry 4. Anxiety disorder/Depression continue Home medicines 5. Hyperlipidemia on hold Statins due to Gallbladder surgery 6. GERD on PPIs IV. 7. Overactive Bladder to continue Home medicines. 8. Obesity strongly recommended diet and exercise. laboratory complete while in house DVT prophylaxis as per General Surgery at this time continue SCDs due to surgical procedure Code Status Full code. Discussed Condition With Raysa Connell Physician Certification 2 Midnight Certification Type: Admission for Inpatient Services Order for Inpatient Services The services are ordered in accordance with Medicare regulations or non- Medicare payer requirements, as applicable. In the case of services not specified as inpatient-only, they are appropriately provided as inpatient services in accordance with the 2-midnight benchmark. Estimated LOS (days): 3 days is the estimated time the patient will need to remain in the hospital, assuming treatment plan goals are met and no additional complications. Post-Hospital Plan: Not yet determined Raza Bhatia MD Jun 03, 2017 16:25
--- NOTE | 2017-06-03 16:29 | PD ---
Data Data Last Documented VS Vital Signs Date Time Temp Pulse Resp B/P (MAP) Pulse Ox O2 Delivery O2 Flow Rate FiO2 06/03/17 15:32 76 19 102/59 (73) 97 Room Air 06/03/17 12:52 98.7 Orders Orders Electrocardiogram (06/03/17 ) Complete Blood Count With Diff (06/03/17 13:21) Comprehensive Metabolic Panel (06/03/17 13:21) Prothrombin Time / Inr (Pt) (06/03/17 13:21) Act Partial Throm Time (Ptt) (06/03/17 13:21) Troponin I (06/03/17 13:21) Lipase (06/03/17 13:21) Chest, Single Ap (06/03/17 13:21) Morphine Inj (Morphine Inj) (06/03/17 13:30) Ondansetron Inj (Zofran Inj) (06/03/17 13:30) Sodium Chlor 0.9% 1000 Ml Inj (Ns 1000 M (06/03/17 13:30) Us Abdomen Gallbladder (06/03/17 ) Urinalysis - C+S If Indicated (06/03/17 15:25) Admit To Inpatient (06/03/17 ) Code Status (06/03/17 16:03) Vital Signs (Adult) Q4H (06/03/17 16:03) Activity Oob Ad Jami (06/03/17 16:03) Mission Coordinator / Telemetry .CONTINUOUS (06/03/17 16:03) Intake + Output LAURO.QSHIFT (06/03/17 16:03) Notify Dr: Other (06/03/17 16:03) Sodium Chlor 0.9% 1000 Ml Inj (Ns 1000 M (06/03/17 16:03) Sodium Chloride 0.9% Flush (Ns Flush) (06/03/17 16:15) Sodium Chloride 0.9% Flush (Ns Flush) (06/03/17 21:00) Acetaminophen (Tylenol) (06/03/17 16:15) Ondansetron Inj (Zofran Inj) (06/03/17 16:15) Basic Metabolic Panel (Bmp) (06/04/17 06:00) Complete Blood Count With Diff (06/04/17 06:00) Creatine Kinase (Cpk) (06/03/17 16:03) Creatine Kinase (Cpk) (06/03/17 22:03) Troponin I (06/03/17 16:03) Troponin I (06/03/17 22:03) Blood Culture (06/03/17 16:03) Resp Oxygen Jackson C Titrat 1-4 L (06/03/17 ) Case Management Consult (06/03/17 16:03) Scd Bilateral/Knee High LAURO.BID (06/03/17 16:03) Naloxone Inj (Narcan Inj) (06/03/17 16:15) Sennosides (Senokot) (06/03/17 16:15) Bisacodyl Supp (Dulcolax Supp) (06/03/17 16:15) Lactulose Liq (Lactulose Liq) (06/03/17 16:15) Inpatient Certification (06/03/17 ) Npo After Midnight W/ Po Meds (06/03/17 Dinner) Consult General Surgery (06/03/17 ) Piperacil-Tazo 3.375 Gm Premix (Zosyn 3. (06/03/17 16:30) Admit Order (Ed Use Only) (06/03/17 ) Labs Laboratory Tests Test 06/03/17 13:25 06/03/17 14:25 Blood Urea Nitrogen 13 MG/DL Creatinine 1.17 MG/DL Random Glucose 142 MG/DL Total Protein 7.5 GM/DL Albumin 2.9 GM/DL Calcium Level 9.4 MG/DL Alkaline Phosphatase 299 U/L Aspartate Amino Transf (AST/SGOT) 102 U/L Alanine Aminotransferase (ALT/SGPT) 101 U/L Total Bilirubin 3.0 MG/DL Sodium Level 138 MEQ/L Potassium Level 3.8 MEQ/L Chloride Level 106 MEQ/L Carbon Dioxide Level 23.7 MEQ/L Anion Gap 8 MEQ/L Estimat Glomerular Filtration Rate 48 ML/MIN Troponin I LESS THAN 0.02 NG/ML Lipase 57 U/L White Blood Count 17.0 TH/MM3 Red Blood Count 3.78 MIL/MM3 Hemoglobin 12.5 GM/DL Hematocrit 36.5 % Mean Corpuscular Volume 96.6 FL Mean Corpuscular Hemoglobin 33.0 PG Mean Corpuscular Hemoglobin Concent 34.2 % Red Cell Distribution Width 13.6 % Platelet Count 248 TH/MM3 Mean Platelet Volume 9.1 FL Neutrophils (%) (Auto) 83.8 % Lymphocytes (%) (Auto) 8.1 % Monocytes (%) (Auto) 7.2 % Eosinophils (%) (Auto) 0.5 % Basophils (%) (Auto) 0.4 % Neutrophils # (Auto) 14.2 TH/MM3 Lymphocytes # (Auto) 1.4 TH/MM3 Monocytes # (Auto) 1.2 TH/MM3 Eosinophils # (Auto) 0.1 TH/MM3 Basophils # (Auto) 0.1 TH/MM3 CBC Comment DIFF FINAL Differential Comment Prothrombin Time 10.8 SEC Prothromb Time International Ratio 1.1 RATIO Activated Partial Thromboplast Time 35.0 SEC MDM Supervised Visit with LATOYA: Yes Narrative Course The history, exam, and medical decision-making in the associated mid-level provider note were completed with my assistance. I reviewed and agree with the findings presented. I attest that I had a [id number] encounter with the patient on the same day, and personally performed and documented my assessment and findings in the medical record. *My assessment and Findings: Is a 56-year-old woman who presents to the emergency department complaining of epigastric right upper quadrant pain. She had tenderness in the right upper quadrant as well. Pain is worse postprandially. She has had the pain off and on for some time, but was significantly worse today. She is overall otherwise well. Ultrasound shows gallbladder wall thickening with sludge and stones in the gallbladder. Liver enzymes are a bit elevated as well. This is consistent with acute cholecystitis. I spoke with Dr. Moon, request antibiotics, will plan surgery tomorrow. Spoke with Dr. Tucker, will admit patient. Diagnosis Primary Impression: Acute cholecystitis Condition: Stable Eliot Darby MD Jun 03, 2017 16:29
[2017-06-03] MEDS: PIPERACIL-TAZO 3.375 GM PREMIX 50 ML IV SCH ×2 (17:00→23:00)
[2017-06-03 17:01] VITALS: BP 105/63
[2017-06-03] MEDS ORDERED: PT:MYRBETRIQ 50 MG PO SCH (18:00)
[2017-06-03 18:04] VITALS: BP 110/68
--- NOTE | 2017-06-03 19:00 | RADRPT ---
EXAM DATE/TIME: 06/03/2017 18:21 [facility] COMPARISON: US ABDOMEN - GALLBLADDER, June 03, 2017, 15:08. INDICATIONS : Cholelithiasis. Pancreatitis. MEDICAL HISTORY : Hypercholesterolemia. Spina bifida. SURGICAL HISTORY : Hysterectomy. ENCOUNTER: Initial ACUITY: 1 day PAIN SCORE: 5/10 LOCATION: Abdomen. TECHNIQUE: Multiplanar, multisequence magnetic resonance imaging of the abdomen was performed. High-resolution 3D dataset was utilized to reconstruct maximum-intensity projection (MIP) images. FINDINGS: INTRAHEPATIC BILE DUCTS: Within normal limits. No significant anatomical variant is present. EXTRAHEPATIC BILE DUCTS: The common bile duct measures 6 mm at its widest point. No stone or filling defect is identified. GALLBLADDER: Multiple small filling defects in the dependent gallbladder with multiple small stones and some scatt ered stones seen out to the fundus. There is a fluid fluid level within the lumen characteristic of layering of bile/sludge. The gallbladder wall is normal thickness. No T2 prolongation of the perich olecystic soft tissues. LIVER: Normal size and signal intensity. No concerning liver lesion is identified on this non-contrast exam. PANCREAS: The main pancreatic duct is normal in size. There is no significant anatomical variant. Signal inte nsity is within normal limits. No mass is visualized on this non-contrast exam. CONCLUSION: 1. Multiple small gallstones in the fundus and layering in the lumen. There is also evidence of laye ring sludge within the gallbladder lumen. 2. Normal dimension common hepatic duct without filling defects. Robby Asif MD on June 03, 2017 at 18:52 Board Certified Radiologist. This report was verified electronically.
[2017-06-03 19:55] LABS: TROPONIN I LESS THAN 0.02 NG/ML (0.02-0.05)
[2017-06-03] MEDS: RESP: ALBUTEROL 2.5 MG/IPRATROPIUM 0.5 MG NEB (SCH) NEB (20:01)
--- NOTE | 2017-06-03 20:10 | MB ---
cc: RONY HERNANDES DATE OF CONSULTATION: 06/03/2017. REASON FOR CONSULTATION: Possible acute cholecystitis. PHYSICIAN REQUESTING THE CONSULTATION: Dr. Garrett Ibarra. HISTORY OF PRESENT ILLNESS: The patient is a 56-year-old female who was in her normal state of health until she developed increasing right upper quadrant pain for several days. She never had pain like this prior and had no other associated symptoms. She has not noted any food or fatty food that she ate to make this worse. She presented to the [facility] Emergency Department and underwent evaluation and was found to have elevated white blood cell count, elevated to total bilirubin and transaminases and imaging concerning for gallbladder sludge and gallbladder wall thickening. The patient was admitted and general surgery was consulted. REVIEW OF SYSTEMS: A twelve-point review of systems was gone over with the patient and is negative except for the pertinent positives mentioned above in the history of present illness. PAST MEDICAL HISTORY: 1. Osteoarthritis. 2. COPD. 3. Anxiety. 4. Gastroesophageal reflux disease (GERD). 5. Spina bifida. 6. Depression. PAST SURGICAL HISTORY: In April, the patient underwent a partial laparoscopic hysterectomy uncomplicated. ALLERGIES NO KNOWN DRUG ALLERGIES. MEDICATIONS: 1. Aspirin. 2. Ibuprofen. 3. Meloxicam. 4. Estradiol. 5. Tizanidine. 6. Hydrocodone. 7. Fluoxetine. 8. Aripiprazole. SOCIAL HISTORY: A current smoker. Denies alcohol or illicit drug use. FAMILY HISTORY: Noncontributory. No previous history of gallbladder problems. PHYSICAL EXAMINATION: VITAL SIGNS: Blood pressure 126/79 with a saturation of 97%, temperature 98.7 degrees, pulse 86. GENERAL: The patient is a well-developed, well-nourished female in no acute distress. HEAD, EYES, EARS, NOSE, THROAT: Head is normocephalic and atraumatic. Pupils are round and reactive and accommodate to light. The sclerae are nonicteric. The oral cavity is clear. NECK: The neck is supple. No jugular venous distention. RESPIRATORY: Breath sounds present bilaterally. Nonlabored breathing pattern. HEART: Regular rate and rhythm. The PMI is nondisplaced. ABDOMEN: Abdomen soft and subjectively tender in the right upper quadrant without Bianchi's sign. Previous surgical scars from laparoscopic hysterectomy are healing well other than being fairly recent incisions. No organomegaly. Normal bowel sounds. BACK: No costovertebral angle tenderness. EXTREMITIES: No cyanosis, clubbing or edema. NEUROLOGIC: The patient is awake and alert and oriented x3. Focal peripheral exam. The patient has mildly flat affect and otherwise insight and judgment are intact. ASSESSMENT AND PLAN: The patient is a 56-year-old female with right upper quadrant pain with elevated transaminases, bilirubin and very mild elevation of lipase. With the patient's history of several days of pain, the patient likely had a choledocholithiasis as well as gallstone pancreatitis, a mild case, which is ongoing or even resolving at this time. I would recommend further imaging such as an MRCP to evaluate the patient's duct prior to any procedure. If the patient is found to have significant biliary obstruction, potential ERCP might need to be performed. The patient would ultimately benefit from a cholecystectomy once we have completed testing and evaluating her biliary system. Thank you very much for this consultation and we will follow along with the patient and bring the patient for a laparoscopic cholecystectomy as soon as possible. I discussed the procedure with the patient in detail including risks, benefits, and alternatives and she would like to undergo laparoscopic cholecystectomy during this hospitalization. MD LUIS F Leigh/VU /6:50 PM /7:44 PM
[2017-06-03 20:37] VITALS: PULSE 64
[2017-06-03] MEDS: guaiFENesin E.R. 600 MG TAB PO SCH (20:42)
[2017-06-03 20:45] VITALS: BP 92/49; PULSE 73; RESP 17; TEMP 98.5; O2SAT 99
[2017-06-03] MEDS: SODIUM CHLORIDE 0.9% FLUSH 10 ML FLUSH IV FLUSH SCH (20:53)
[2017-06-04] VITALS (10 sets, daily range): BP systolic 108–172; BP diastolic 62–86; PULSE 56–78; RESP 17–18; TEMP 97.6–99.4; O2SAT 95–100
[2017-06-04] MEDS ORDERED: SODIUM CHLOR 0.9% 1000 ML INJ 1,000 ML IV PRN
[2017-06-04] MEDS: SODIUM CHLOR 0.9% 1000 ML INJ 1,000 ML IV SCH ×3 (02:03→21:20)
[2017-06-04] MEDS: MORPHINE SULFATE 2 MG/ML INJ IV PUSH PRN ×3 (02:45→21:19)
[2017-06-04] MEDS: PIPERACIL-TAZO 3.375 GM PREMIX 50 ML IV SCH ×4 (02:55→21:11)
[2017-06-04] MEDS: RESP: ALBUTEROL 2.5 MG/IPRATROPIUM 0.5 MG NEB (SCH) NEB ×7 (04:00→23:58)
[2017-06-04 04:30] LABS: TROPONIN I LESS THAN 0.02 NG/ML (0.02-0.05)
[2017-06-04 07:45] LABS: AUTOMATED NEUTROPHIL # 8.5 TH/MM3 (1.8-7.7); BASOPHIL % 0.4 % (0.0-2.0); EOSINOPHIL # 0.3 TH/MM3 (0-0.4); EOSINOPHIL % 2.4 % (0.0-4.0); HEMATOCRIT 34.8 % (35.0-46.0); HEMOGLOBIN 11.6 GM/DL (11.6-15.3); LYMPH % 22.9 % (9.0-44.0); LYMPHOCYTE # 2.9 TH/MM3 (1.0-4.8); MEAN CELL VOLUME 97.8 FL (80.0-100.0); MEAN CORPUSCULAR HEMOGLOBIN 32.5 PG (27.0-34.0); MEAN CORPUSCULAR HGB CONC 33.3 % (32.0-36.0); MEAN PLATELET VOLUME 9.3 FL (7.0-11.0); MONO % 5.7 % (0.0-8.0); MONOCYTE # 0.7 TH/MM3 (0-0.9); NEUT % 68.6 % (16.0-70.0); PLATELET COUNT 202 TH/MM3 (150-450); RED BLOOD COUNT 3.56 MIL/MM3 (4.00-5.30); WHITE BLOOD COUNT 12.4 TH/MM3 (4.0-11.0)
[2017-06-04 08:04] LABS: BICARBONATE 23.6 MEQ/L (21.0-32.0); CALCIUM 8.9 MG/DL (8.5-10.1); CREATININE 0.93 MG/DL (0.50-1.00)
[2017-06-04] MEDS: FLUoxetine HCL 20 MG CAP PO SCH (08:37)
[2017-06-04] MEDS: ARIPiprazole 5 MG TAB PO SCH (08:37)
[2017-06-04] MEDS: guaiFENesin E.R. 600 MG TAB PO SCH ×2 (08:37→21:11)
[2017-06-04] MEDS: SODIUM CHLORIDE 0.9% FLUSH 10 ML FLUSH IV FLUSH SCH ×2 (08:38→21:00)
--- NOTE | 2017-06-04 09:05 | HHI.FPPN ---
Subjective Remarks Mrs. Pickett is a very pleasant 56 year old female, with a past medical history significant for spina bifida occulta, depression, who presented to the emergency department with 3-4 days of nausea, vomiting, and right upper quadrant pain. She was found to have leukocytosis of 17,000, and a thickened gallbladder wall on ultrasound. General surgery was consulted, and recommended getting an MRCP, given an elevated lipase, and the possibility of intraductal stone. The MRCP showed: " Multiple small gallstones in the fundus and layering in the lumen. There is also evidence of layering sludge within the gallbladder lumen. The bile duct diameter was 6 mm." Today, she is feeling better. She reports the pain is 50% less. She denies any persistent nausea or vomiting. She does feel sweaty this morning. Her abdominal pain is over the epigastrium, and she says "it feels like a squeezing." He denies any blood in her stools, or in her emesis. Objective Vitals Vital Signs Date Time Temp Pulse Resp B/P (MAP) Pulse Ox O2 Delivery O2 Flow Rate FiO2 06/04/17 08:56 16 06/04/17 07:58 98.6 74 18 148/79 (102) 97 06/04/17 04:00 99.4 78 18 134/64 (87) 95 06/04/17 01:30 108/62 (77) 06/04/17 00:00 99.1 73 17 127/68 (87) 98 06/03/17 20:45 98.5 73 17 92/49 (63) 99 06/03/17 20:37 64 06/03/17 18:04 110/68 (82) 06/03/17 17:01 74 17 105/63 (77) 98 06/03/17 15:32 76 19 102/59 (73) 97 Room Air 06/03/17 12:52 98.7 86 20 126/79 (95) 97 I/O 06/03/17 06/03/17 06/03/17 06/04/17 06/04/17 06/04/17 07:00 15:00 23:00 07:00 15:00 23:00 Intake Total 1000 ml 240 ml 530 ml 1000 ml Balance 1000 ml 240 ml 530 ml 1000 ml Intake Oral 240 ml 480 ml IV Total 1000 ml 50 ml 1000 ml # Voids 1 4 # Bowel Movements 0 0 Result Diagram: 06/04/17 0600 06/04/17 0600 Imaging Last 72 hours Impressions Chest X-Ray 06/03/17 1321 Signed Impressions: Service Date/Time: Saturday, June 03, 2017 14:17 - CONCLUSION: No acute disease. No significant change has occurred. Lito Burnett MD Gall Bladder Ultrasound 06/03/17 0000 Signed Impressions: Service Date/Time: Saturday, June 03, 2017 15:08 - CONCLUSION: Sludge and stones in the gallbladder with thickened wall consistent with cholecystitis. Otherwise negative exam Lito Burnett MD Cholangiopancreatography MRI 06/03/17 0000 Signed Impressions: Service Date/Time: Saturday, June 03, 2017 18:21 - CONCLUSION: 1. Multiple small gallstones in the fundus and layering in the lumen. There is also evidence of layering sludge within the gallbladder lumen. 2. Normal dimension common hepatic duct without filling defects. Robby Asif MD Objective Remarks GENERAL: Well-nourished, well-developed patient. No acute distress. SKIN: Warm and dry. No rash. EYES: No scleral icterus. No injection or drainage. PERRLA. EOMI. HENT: Normocephalic. Atraumatic. MMM. NECK: No visible JVD or lymphadenopathy. CARDIOVASCULAR: Warm and well perfused. RESPIRATORY: Normal respiratory effort. GASTROINTESTINAL: Abdomen nondistended. Tender to palpation of the right upper quadrant. No rebound or guarding. Bianchi's sign positive. MUSCULOSKELETAL: Strength grossly WNL. BACK: Without obvious deformity. NEURO/PSYCH: Afocal. Awake, alert, and oriented x3. 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 Discharge Planning Likely 1-2 days pending clinical findings/ERCP, and the need for any surgical interventions. Problem List: (1) Acute cholecystitis ICD Codes: K81.0 - Acute cholecystitis Status: Acute Plan: ERCP showed multiple gallstones in the fundus and layering in the lumen. Common bile duct was 6 mm. Plan for ERCP today. Pending these results, may need a cholecystectomy. We appreciate the assistance of gastroenterology, as well as general surgery. Pain control with warfarin 2 mg every 3 hours as needed for pain greater than 4. Nothing by mouth. IV normal saline at 100 ML's per hour. Zosyn 3.375 mg every 6 hours IV. Monitor clinical exam. (2) Depression ICD Codes: F32.9 - Major depressive disorder, single episode, unspecified Status: Acute Plan: Denies any mood symptoms currently. Continue with Prozac 40 mg daily. Continue Abilify 5 mg daily. (3) Nutrition, metabolism, and development symptoms ICD Codes: R63.8 - Other symptoms and signs concerning food and fluid intake Plan: Nutrition: NPO DVT ppx: SCDs IVF: 100 ml/hr NS GI ppx: not indicated. EVELIN Beck Pre[place]atte. Kyle Osorio MD, R3 Jun 04, 2017 09:05
[2017-06-04] MEDS: NICOTINE 4 MG/GUM CHEW PRN ×4 (13:06→20:15)
--- NOTE | 2017-06-04 13:42 | PD.CONS ---
HPI History of Present Illness This is a 56 year old F who presented to the emergency department yesterday with complaints of midepigastric pain that radiates around to her back with associated nausea and vomiting. She states she has a chronic pain in her epigastric area however the radiation is new and began on . Denies any nausea and vomiting since admission, reports great improvement in pain, now pain is only mild. Denies hematemesis, constipation, diarrhea, unintentional weight loss, hematochezia, melena. Reports acid reflux is well controlled with Prilosec twice daily. Last EGD was within the last year, states had it done at a surgical center, she is unsure of the name of the doctor that performed the procedure or where his office is. Last colonoscopy was last year as well, states found a polyp, told her she wouldn't have to repeat exam for ten years. ETOH, once a month. Current smoker, half a pack to pack a day. Pt has been evaluated by ELIDA Mcmillan for possible acute cholecystitis given leukocytosis as well as elevation in T bili and transaminitis. Gallbladder US ( 06/03) revealed sludge and stones in gallbladder with thickened wall consistent with cholecystitis. They ordered MRCP to further evaluate for possibility of choledocholithiasis --> Multiple small gallstones in the fundus and layering in the lumen. There is also evidence of layering sludge within the gallbladder lumen. Normal dimension common hepatic duct without filling defects. LFTs have not been rechecked today, so unable to determine if they are improving. Yesterday labs as follows: T bili-3.0, AST-102, ALT-101, Alk phos-299, Lipase- 57. (Sandra Kearns) PFSH Past Medical History OA COPD Anxiety disorder Hyperlipidemia GERD Spina Bifida Occulta Overactive bladder Depression Past Surgical History Partial Hysterectomy (Sandra Kearns) Coded Allergies: No Known Allergies (Unverified , 06/03/17) Family History Mother and Father with Hypertension Social History Tobacco dependence half pack of cigarettes daily (Sandra Kearns) Review of Systems Gastrointestinal: COMPLAINS OF: Abdominal pain, DENIES: Black stools, Bloody stools, Constipation, Diarrhea, Nausea, Vomiting, Difficulty Swallowing, Odynophagia, Swelling of Abdomen, Heartburn, Hematemesis (Sandra Kearns) GI Exam Vitals I&O Vital Signs Date Time Temp Pulse Resp B/P (MAP) Pulse Ox O2 Delivery O2 Flow Rate FiO2 06/04/17 12:00 98.0 62 18 144/79 (100) 97 06/04/17 08:56 16 06/04/17 07:58 98.6 74 18 148/79 (102) 97 06/04/17 04:00 99.4 78 18 134/64 (87) 95 06/04/17 01:30 108/62 (77) 06/04/17 00:00 99.1 73 17 127/68 (87) 98 06/03/17 20:45 98.5 73 17 92/49 (63) 99 06/03/17 20:37 64 06/03/17 18:04 110/68 (82) 06/03/17 17:01 74 17 105/63 (77) 98 06/03/17 15:32 76 19 102/59 (73) 97 Room Air I/O 06/03/17 06/03/17 06/03/17 06/04/17 06/04/17 06/04/17 07:00 15:00 23:00 07:00 15:00 23:00 Intake Total 1000 ml 240 ml 530 ml 1000 ml Balance 1000 ml 240 ml 530 ml 1000 ml Intake Oral 240 ml 480 ml IV Total 1000 ml 50 ml 1000 ml # Voids 1 4 # Bowel Movements 0 0 Imaging Last Impressions Chest X-Ray 06/03/17 1321 Signed Impressions: Service Date/Time: Saturday, June 03, 2017 14:17 - CONCLUSION: No acute disease. No significant change has occurred. Lito Burnett MD Gall Bladder Ultrasound 06/03/17 0000 Signed Impressions: Service Date/Time: Saturday, June 03, 2017 15:08 - CONCLUSION: Sludge and stones in the gallbladder with thickened wall consistent with cholecystitis. Otherwise negative exam Lito Burnett MD Cholangiopancreatography MRI 06/03/17 0000 Signed Impressions: Service Date/Time: Saturday, June 03, 2017 18:21 - CONCLUSION: 1. Multiple small gallstones in the fundus and layering in the lumen. There is also evidence of layering sludge within the gallbladder lumen. 2. Normal dimension common hepatic duct without filling defects. Robby Asif MD Laboratory Test 06/03/17 14:25 06/03/17 19:20 06/04/17 03:10 06/04/17 06:00 White Blood Count 17.0 TH/MM3 12.4 TH/MM3 Red Blood Count 3.78 MIL/MM3 3.56 MIL/MM3 Hemoglobin 12.5 GM/DL 11.6 GM/DL Hematocrit 36.5 % 34.8 % Mean Corpuscular Volume 96.6 FL 97.8 FL Mean Corpuscular Hemoglobin 33.0 PG 32.5 PG Mean Corpuscular Hemoglobin Concent 34.2 % 33.3 % Red Cell Distribution Width 13.6 % 14.0 % Platelet Count 248 TH/MM3 202 TH/MM3 Mean Platelet Volume 9.1 FL 9.3 FL Neutrophils (%) (Auto) 83.8 % 68.6 % Lymphocytes (%) (Auto) 8.1 % 22.9 % Monocytes (%) (Auto) 7.2 % 5.7 % Eosinophils (%) (Auto) 0.5 % 2.4 % Basophils (%) (Auto) 0.4 % 0.4 % Neutrophils # (Auto) 14.2 TH/MM3 8.5 TH/MM3 Lymphocytes # (Auto) 1.4 TH/MM3 2.9 TH/MM3 Monocytes # (Auto) 1.2 TH/MM3 0.7 TH/MM3 Eosinophils # (Auto) 0.1 TH/MM3 0.3 TH/MM3 Basophils # (Auto) 0.1 TH/MM3 0.0 TH/MM3 CBC Comment DIFF FINAL DIFF FINAL Differential Comment Prothrombin Time 10.8 SEC Prothromb Time International Ratio 1.1 RATIO Activated Partial Thromboplast Time 35.0 SEC Total Creatine Kinase 28 U/L 28 U/L Troponin I LESS THAN 0.02 NG/ML LESS THAN 0.02 NG/ML Blood Urea Nitrogen 10 MG/DL Creatinine 0.93 MG/DL Random Glucose 107 MG/DL Calcium Level 8.9 MG/DL Sodium Level 140 MEQ/L Potassium Level 3.8 MEQ/L Chloride Level 109 MEQ/L Carbon Dioxide Level 23.6 MEQ/L Anion Gap 7 MEQ/L Estimat Glomerular Filtration Rate 62 ML/MIN Date/Time Source Procedure Growth Status 06/03/17 16:30 Blood Peripheral Aerobic Blood Culture - Preliminary NO GROWTH IN 1 DAY Resulted 06/03/17 16:30 Blood Peripheral Anaerobic Blood Culture - Preliminary NO GROWTH IN 1 DAY Resulted Physical Examination HEENT: Normocephalic; atraumatic CHEST: Even/unlabored CARDIAC: RRR ABDOMEN: Round, soft, epigastric and RUQ TTP, bowel sounds active EXTREMITIES: No clubbing, cyanosis, or edema. SKIN: Normal; no rash; no jaundice. LAMINATION TECHNICIAN: No focal deficits; alert and oriented times three. (Sandra Kearns) Assessment and Plan Plan Assessment: - Epigastric and RUQ pain with transaminitis and elevated bilirubin. US gallbladder (06/03) --> Sludge and stones in the gallbladder with thickened wall consistent with cholecystitis. Otherwise negative exam. GS evaluated for possible acute cholecystitis given symptoms, leukocytosis. They ordered MRCP to rule out choledocholithiasis --> Multiple small gallstones in the fundus and layering in the lumen. there is also evidence of layering sludge within the gallbladder lumen. Normal dimension common hepatic duct without filling defects. Last EGD approx a year ago, she is unsure of findings - Transaminitis, yesterday labs as follows: AST-102 ALT-101 T bili-3 Alk phos- 299. No repeat labs from today to evaluate trend. - Leukocytosis- Zosyn Plan: Repeat LFTs Cholecystectomy per GS If LFTs remain elevated can consider ERCP Supportive care Further recommendations to follow based on results of above and clinical course Pt has been seen and examined by myself and Dr. Núñez and this note is written on his behalf (Sandra Kearns) Physician Comments patient seen and examined agree with above monitor labs continue present supportive care findings consistent with acute cholecystitis, further recommendations as per GS service agree with intraoperative liver biopsy and IOC (Corby Núñez MD) Sandra Kearns Jun 04, 2017 13:42 Corby Núñez MD Jun 04, 2017 21:06
[2017-06-04 13:50] LABS: ALBUMIN 2.3 GM/DL (3.4-5.0); DIRECT BILIRUBIN ADULT 1.9 MG/DL (0.0-0.2); TOTAL BILIRUBIN ADULT 2.9 MG/DL (0.2-1.0); TOTAL PROTEIN 6.3 GM/DL (6.4-8.2)
--- NOTE | 2017-06-04 14:18 | HHI.PR ---
cc: Julio Ryan MD Subjective Subjective Notes DAILY PROGRESS NOTE FOR SURGICAL ATTENDING, DR. JULIO RYAN Patient with mild midepigastric discomfort Improved Objective Vitals/I&O Vital Signs Date Time Temp Pulse Resp B/P (MAP) Pulse Ox O2 Delivery O2 Flow Rate FiO2 06/04/17 12:00 98.0 62 18 144/79 (100) 97 06/03/17 15:32 Room Air Labs Laboratory Tests Test 06/03/17 14:25 06/03/17 19:20 06/04/17 03:10 06/04/17 06:00 White Blood Count 17.0 12.4 Red Blood Count 3.78 3.56 Hemoglobin 12.5 11.6 Hematocrit 36.5 34.8 Mean Corpuscular Volume 96.6 97.8 Mean Corpuscular Hemoglobin 33.0 32.5 Mean Corpuscular Hemoglobin Concent 34.2 33.3 Red Cell Distribution Width 13.6 14.0 Platelet Count 248 202 Mean Platelet Volume 9.1 9.3 Neutrophils (%) (Auto) 83.8 68.6 Lymphocytes (%) (Auto) 8.1 22.9 Monocytes (%) (Auto) 7.2 5.7 Eosinophils (%) (Auto) 0.5 2.4 Basophils (%) (Auto) 0.4 0.4 Neutrophils # (Auto) 14.2 8.5 Lymphocytes # (Auto) 1.4 2.9 Monocytes # (Auto) 1.2 0.7 Eosinophils # (Auto) 0.1 0.3 Basophils # (Auto) 0.1 0.0 CBC Comment DIFF FINAL DIFF FINAL Differential Comment Prothrombin Time 10.8 Prothromb Time International Ratio 1.1 Activated Partial Thromboplast Time 35.0 Total Creatine Kinase 28 28 Troponin I LESS THAN 0.02 LESS THAN 0.02 Blood Urea Nitrogen 10 Creatinine 0.93 Random Glucose 107 Calcium Level 8.9 Sodium Level 140 Potassium Level 3.8 Chloride Level 109 Carbon Dioxide Level 23.6 Anion Gap 7 Estimat Glomerular Filtration Rate 62 Total Bilirubin 2.9 Direct Bilirubin 1.9 Indirect Bilirubin 1.0 Aspartate Amino Transf (AST/SGOT) 88 Alanine Aminotransferase (ALT/SGPT) 104 Alkaline Phosphatase 274 Total Protein 6.3 Albumin 2.3 Date/Time Source Procedure Growth Status 06/03/17 16:30 Blood Peripheral Aerobic Blood Culture - Preliminary NO GROWTH IN 1 DAY Resulted 06/03/17 16:30 Blood Peripheral Anaerobic Blood Culture - Preliminary NO GROWTH IN 1 DAY Resulted Cardiovascular: Regular Abdomen: Non-distended, Other (tender midepigastric right upper quadrant no rebound or guarding) Extremities: No edema, Perfused, SCD's on A/P Problem List: (1) Elevated liver enzymes ICD Codes: R74.8 - Abnormal levels of other serum enzymes Status: Acute (2) Total bilirubin, elevated ICD Codes: R17 - Unspecified jaundice Status: Acute (3) Gallstones ICD Codes: K80.20 - Calculus of gallbladder without cholecystitis without obstruction Status: Acute (4) Abnormal findings on imaging of biliary tract ICD Codes: R93.2 - Abnormal findings on diagnostic imaging of liver and biliary tract Status: Acute (5) Acute cholecystitis ICD Codes: K81.0 - Acute cholecystitis Status: Acute Assessment and Plan 56-year-old female with acute cholecystitis has had imaging of her biliary tree does not show any common duct stones. Her liver enzymes remain elevated. Would benefit from laparoscopic cholecystectomy. If her liver enzymes remain elevated possible liver biopsy Attending Statement NOTE FOR SURGICAL ATTENDING, DR. JULIO RYAN I agree with above assessment and plan. The exam, history, and the medical decision-making described in the above note were completed with the assistance of the mid-level provider. I reviewed and agree with the findings presented. I attest that I had a [id number] encounter with the patient on the same day, and personally performed and documented my assessment and findings in the medical record. The following services were provided during this hospital visit: Chart data review, vital sign assessments/reviewing monitor data Review of consultations notes if present. Medication orders/review and/or management Ordering and/or reviewing lab tests Ordering and/or interpreting/reviewing x-rays and/or diagnostic studies Care of the patient and discussion of the patient with the care team Documentation time To help prompt me to consider important information that might be impacting today's encounter and assessment, information from prior notes written by myself or my colleagues may have been "brought forward/copy and pasted" into today's note. Julio Ryan MD Jun 04, 2017 14:18
--- NOTE | 2017-06-04 17:41 | EKG ---
Date Performed: 06/03/2017 Time Performed: 13:09:08 PTAGE: 56 years EKG: Sinus rhythm NORMAL ECG PREVIOUS TRACING : 03/10/2017 15.35 Since the prior tracing, there has been no significant ledesma DOCTOR: Warren Brunner Interpretating Date/Time 06/04/2017 17:39:33
[2017-06-05] VITALS (8 sets, daily range): BP systolic 137–195; BP diastolic 82–111; PULSE 58–77; RESP 17–18; TEMP 97.2–99.3; O2SAT 96–99
[2017-06-05] MEDS: traZODone HCL 100 MG TAB PO PRN
[2017-06-05] MEDS: NICOTINE 4 MG/GUM CHEW PRN
[2017-06-05] MEDS: RESP: ALBUTEROL 2.5 MG/IPRATROPIUM 0.5 MG NEB (SCH) NEB ×5 (03:03→19:19)
[2017-06-05] MEDS: PIPERACIL-TAZO 3.375 GM PREMIX 50 ML IV SCH ×4 (03:09→20:19)
[2017-06-05 06:27] LABS: AUTOMATED NEUTROPHIL # 6.5 TH/MM3 (1.8-7.7); BASOPHIL # 0.1 TH/MM3 (0-0.2); BASOPHIL % 0.8 % (0.0-2.0); EOSINOPHIL # 0.3 TH/MM3 (0-0.4); EOSINOPHIL % 2.7 % (0.0-4.0); HEMATOCRIT 33.8 % (35.0-46.0); HEMOGLOBIN 11.2 GM/DL (11.6-15.3); LYMPH % 29.7 % (9.0-44.0); LYMPHOCYTE # 3.2 TH/MM3 (1.0-4.8); MEAN CELL VOLUME 97.1 FL (80.0-100.0); MEAN CORPUSCULAR HEMOGLOBIN 32.3 PG (27.0-34.0); MEAN CORPUSCULAR HGB CONC 33.2 % (32.0-36.0); MEAN PLATELET VOLUME 9.3 FL (7.0-11.0); MONO % 7.4 % (0.0-8.0); MONOCYTE # 0.8 TH/MM3 (0-0.9); NEUT % 59.4 % (16.0-70.0); PLATELET COUNT 254 TH/MM3 (150-450); RED BLOOD COUNT 3.48 MIL/MM3 (4.00-5.30); RED CELL DISTRIBUTION WIDTH 13.6 % (11.6-17.2); WHITE BLOOD COUNT 10.9 TH/MM3 (4.0-11.0)
[2017-06-05 06:45] LABS: ALBUMIN 2.3 GM/DL (3.4-5.0); ALT (GPT) 111 U/L (10-53); AST (GOT) 81 U/L (15-37); BICARBONATE 19.7 MEQ/L (21.0-32.0); CALCIUM 8.8 MG/DL (8.5-10.1); CHLORIDE 113 MEQ/L (98-107); CREATININE 0.81 MG/DL (0.50-1.00); GLOMERULAR FILTRATION RATE 73 ML/MIN (>89); GLUCOSE,RANDOM 96 MG/DL (74-106); SODIUM (NA) 141 MEQ/L (136-145)
[2017-06-05 06:47] LABS: ALKALINE PHOSPHATASE 303 U/L (45-117); TOTAL BILIRUBIN ADULT 2.4 MG/DL (0.2-1.0); TOTAL PROTEIN 6.2 GM/DL (6.4-8.2)
[2017-06-05 06:52] LABS: BLOOD UREA NITROGEN 10 MG/DL (7-18)
[2017-06-05] MEDS: ENALAPRILAT 1.25 MG/ML VIAL IV PUSH PRN ×2 (08:05→17:14)
[2017-06-05] MEDS: FLUoxetine HCL 20 MG CAP PO SCH (08:05)
[2017-06-05] MEDS: ONDANSETRON HCL 4 MG/2 ML VIAL IVP PRN (08:06)
[2017-06-05] MEDS: guaiFENesin E.R. 600 MG TAB PO SCH ×2 (08:06→20:19)
[2017-06-05] MEDS: ARIPiprazole 5 MG TAB PO SCH (08:06)
[2017-06-05] MEDS: SODIUM CHLORIDE 0.9% FLUSH 10 ML FLUSH IV FLUSH SCH ×2 (08:06→20:18)
[2017-06-05] MEDS: SODIUM CHLOR 0.9% 1000 ML INJ 1,000 ML IV SCH ×2 (08:07→18:03)
[2017-06-05] MEDS ORDERED: ACETAMINOPHEN/HYDROcodone 325 MG/5 MG TAB PO PRN (11:00)
--- NOTE | 2017-06-05 11:55 | HHI.FPPN ---
Subjective Remarks Patient in 10/31 pain. Had a episode of bilious vomit (small amount) this AM. Yesterday tolerated clear liquids well. Normal formed BM yesterday. Denies fevers or chills. Chronic abdominal pain at her baseline is a 3-08/01. (Kyle Osorio MD, R3) Objective Vitals Vital Signs Date Time Temp Pulse Resp B/P (MAP) Pulse Ox O2 Delivery O2 Flow Rate FiO2 06/05/17 08:38 99 21 06/05/17 08:00 99.3 65 18 186/95 (125) 97 06/05/17 04:00 98.3 58 17 184/85 (118) 98 06/04/17 23:44 62 06/04/17 23:00 99.0 56 18 172/86 (114) 100 06/04/17 21:05 60 06/04/17 19:10 97.6 63 18 136/85 (102) 100 06/04/17 16:00 97.7 69 18 136/70 (92) 98 06/04/17 12:00 98.0 62 18 144/79 (100) 97 I/O 06/04/17 06/04/17 06/04/17 06/05/17 06/05/17 06/05/17 07:00 15:00 23:00 07:00 15:00 23:00 Intake Total 530 ml 1050 ml 2025 ml 480 ml Balance 530 ml 1050 ml 2025 ml 480 ml Intake Oral 480 ml 0 ml 1200 ml 480 ml IV Total 50 ml 1050 ml 825 ml # Voids 4 4 4 7 # Bowel Movements 0 0 0 0 (Kyle Osorio MD, R3) Result Diagram: 06/05/17 0408 06/05/17 0408 Imaging Last 72 hours Impressions Chest X-Ray 06/03/17 1321 Signed Impressions: Service Date/Time: Saturday, June 03, 2017 14:17 - CONCLUSION: No acute disease. No significant change has occurred. Lito Burnett MD Gall Bladder Ultrasound 06/03/17 0000 Signed Impressions: Service Date/Time: Saturday, June 03, 2017 15:08 - CONCLUSION: Sludge and stones in the gallbladder with thickened wall consistent with cholecystitis. Otherwise negative exam Lito Burnett MD Cholangiopancreatography MRI 06/03/17 0000 Signed Impressions: Service Date/Time: Saturday, June 03, 2017 18:21 - CONCLUSION: 1. Multiple small gallstones in the fundus and layering in the lumen. There is also evidence of layering sludge within the gallbladder lumen. 2. Normal dimension common hepatic duct without filling defects. Robby Asif MD Objective Remarks GENERAL: Well-nourished, well-developed patient. No acute distress. SKIN: Warm and dry. No rash. EYES: No scleral icterus. No injection or drainage. PERRLA. EOMI. HENT: Normocephalic. Atraumatic. MMM. NECK: No visible JVD or lymphadenopathy. CARDIOVASCULAR: Warm and well perfused. RESPIRATORY: Normal respiratory effort. GASTROINTESTINAL: Abdomen nondistended. Tender to palpation of the right upper quadrant. No rebound or guarding. Bianchi's sign positive. MUSCULOSKELETAL: Strength grossly WNL. BACK: Without obvious deformity. NEURO/PSYCH: Afocal. Awake, alert, and oriented x3. (Kyle Osorio MD, R3) Objective Remarks GI exam as above, however would clarify there is mild voluntary guarding. 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 Discharge Planning Likely within the next 24 hours. Will need cholecystectomy, pain control, and to be tolerating PO diet. (Kyle Osorio MD, R3) Attending Attestation Patient seen and discussed with Dr. Osorio. Pain meds adjusted to optimize pain control, baseline chronic abdominal pain at level 3-4/10, have set new goal for pain management with pt as result. Patient tolerating small amount low -fat diet. Anticipate discharge following cholecystectomy, which is currently scheduled for tomorrow afternoon with Dr Moon. (Farideh Javier MD) Problem List: (1) Acute cholecystitis ICD Codes: K81.0 - Acute cholecystitis Status: Acute Plan: ERCP showed multiple gallstones in the fundus and layering in the lumen. Common bile duct was 6 mm. Plan for cholecystectomy. Pain control: Pain 7.5/10. Will give onetime DIlaudid 0.5 mg IV x 1 preoperatively. Then will treat her pain to a goal of 3-4/10, with [place] 10-325 mg q 4 hours pain 7-10, [place] 5-325 mg q 4 hrs pain 2-6. Nothing by mouth, until after surgery. IV normal saline at 100 ML's per hour. Zosyn 3.375 mg every 6 hours IV. Monitor clinical exam. (2) Depression ICD Codes: F32.9 - Major depressive disorder, single episode, unspecified Status: Acute Plan: Denies any mood symptoms currently. Continue with Prozac 40 mg daily. Continue Abilify 5 mg daily. (3) Nutrition, metabolism, and development symptoms ICD Codes: R63.8 - Other symptoms and signs concerning food and fluid intake Plan: Nutrition: NPO DVT ppx: SCDs IVF: 100 ml/hr NS GI ppx: not indicated. SDW Dr. Farideh Javier. (Kyle Osorio MD, R3) Problem List: (1) Acute cholecystitis ICD Codes: K81.0 - Acute cholecystitis Status: Acute Plan: ERCP showed multiple gallstones in the fundus and layering in the lumen. Common bile duct was 6 mm. Plan for ERCP today. Pending these results, may need a cholecystectomy. We appreciate the assistance of gastroenterology, as well as general surgery. Pain control with warfarin 2 mg every 3 hours as needed for pain greater than 4. Nothing by mouth. IV normal saline at 100 ML's per hour. Zosyn 3.375 mg every 6 hours IV. Monitor clinical exam. (2) Nutrition, metabolism, and development symptoms ICD Codes: R63.8 - Other symptoms and signs concerning food and fluid intake Plan: Nutrition: NPO DVT ppx: SCDs IVF: 100 ml/hr NS GI ppx: not indicated. WDW Dr. Heart. (3) Depression ICD Codes: F32.9 - Major depressive disorder, single episode, unspecified Status: Acute Plan: Denies any mood symptoms currently. Continue with Prozac 40 mg daily. Continue Abilify 5 mg daily. (4) Peptic ulcer disease ICD Codes: K27.9 - Peptic ulcer, site unspecified, unspecified as acute or chronic, without hemorrhage or perforation Status: Chronic Plan: Resume PPI, follow H&H (Farideh Javier MD) Kyle Osorio MD, R3 Jun 05, 2017 11:55 Farideh Javier MD Jun 05, 2017 18:19
[2017-06-05] MEDS ORDERED: PANTOPRAZOLE SODIUM 40 MG VIAL IV PUSH ONE (12:00)
[2017-06-05] MEDS ORDERED: HYDROmorphone HCL PF 2 MG/ML VIAL IV PUSH ONE (12:00)
[2017-06-05 13:37] LABS: HEPATITIS A AB IGM NEGATIVE (NEGATIVE); HEPATITIS B CORE AB IGM NEGATIVE (NEGATIVE); HEPATITIS B SURFACE ANTIGEN NEGATIVE (NEGATIVE); HEPATITIS C AB IgG NEGATIVE (NEGATIVE)
--- NOTE | 2017-06-05 13:43 | HHI.GIFU ---
Subjective Remarks Pt resting in bed. Says her abd is "sore." Had n/v this morning but says it has improved overall. (Andree Main) Objective Vitals I&O Vital Signs Date Time Temp Pulse Resp B/P (MAP) Pulse Ox O2 Delivery O2 Flow Rate FiO2 06/05/17 08:38 99 21 06/05/17 08:00 99.3 65 18 186/95 (125) 97 06/05/17 04:00 98.3 58 17 184/85 (118) 98 06/04/17 23:44 62 06/04/17 23:00 99.0 56 18 172/86 (114) 100 06/04/17 21:05 60 06/04/17 19:10 97.6 63 18 136/85 (102) 100 06/04/17 16:00 97.7 69 18 136/70 (92) 98 I/O 06/04/17 06/04/17 06/04/17 06/05/17 06/05/17 06/05/17 07:00 15:00 23:00 07:00 15:00 23:00 Intake Total 530 ml 1050 ml 2025 ml 480 ml Balance 530 ml 1050 ml 2025 ml 480 ml Intake Oral 480 ml 0 ml 1200 ml 480 ml IV Total 50 ml 1050 ml 825 ml # Voids 4 4 4 7 # Bowel Movements 0 0 0 0 Laboratory Laboratory Tests Test 06/05/17 04:08 White Blood Count 10.9 Red Blood Count 3.48 Hemoglobin 11.2 Hematocrit 33.8 Mean Corpuscular Volume 97.1 Mean Corpuscular Hemoglobin 32.3 Mean Corpuscular Hemoglobin Concent 33.2 Red Cell Distribution Width 13.6 Platelet Count 254 Mean Platelet Volume 9.3 Neutrophils (%) (Auto) 59.4 Lymphocytes (%) (Auto) 29.7 Monocytes (%) (Auto) 7.4 Eosinophils (%) (Auto) 2.7 Basophils (%) (Auto) 0.8 Neutrophils # (Auto) 6.5 Lymphocytes # (Auto) 3.2 Monocytes # (Auto) 0.8 Eosinophils # (Auto) 0.3 Basophils # (Auto) 0.1 CBC Comment DIFF FINAL Differential Comment Blood Urea Nitrogen 10 Creatinine 0.81 Random Glucose 96 Total Protein 6.2 Albumin 2.3 Calcium Level 8.8 Alkaline Phosphatase 303 Aspartate Amino Transf (AST/SGOT) 81 Alanine Aminotransferase (ALT/SGPT) 111 Total Bilirubin 2.4 Sodium Level 141 Potassium Level 4.1 Chloride Level 113 Carbon Dioxide Level 19.7 Anion Gap 8 Estimat Glomerular Filtration Rate 73 Date/Time Source Procedure Growth Status 06/03/17 16:30 Blood Peripheral Aerobic Blood Culture - Preliminary NO GROWTH IN 2 DAYS Resulted 06/03/17 16:30 Blood Peripheral Anaerobic Blood Culture - Preliminary NO GROWTH IN 2 DAYS Resulted Imaging Last Impressions Chest X-Ray 06/03/17 1321 Signed Impressions: Service Date/Time: Saturday, June 03, 2017 14:17 - CONCLUSION: No acute disease. No significant change has occurred. Lito Burnett MD Gall Bladder Ultrasound 06/03/17 0000 Signed Impressions: Service Date/Time: Saturday, June 03, 2017 15:08 - CONCLUSION: Sludge and stones in the gallbladder with thickened wall consistent with cholecystitis. Otherwise negative exam Lito Burnett MD Cholangiopancreatography MRI 06/03/17 0000 Signed Impressions: Service Date/Time: Saturday, June 03, 2017 18:21 - CONCLUSION: 1. Multiple small gallstones in the fundus and layering in the lumen. There is also evidence of layering sludge within the gallbladder lumen. 2. Normal dimension common hepatic duct without filling defects. Robby Asif MD Physical Exam HEENT: PERRL; normocephalic; atraumatic; no jaundice. CHEST: CTA CARDIAC: RRR ABDOMEN: Soft, nondistended, epigastric TTP; no hepatosplenomegaly; bowel sounds are present in all four quadrants. EXTREMITIES: No clubbing, cyanosis, or edema. SKIN: Normal; no rash; no jaundice. INSTRUCTIONAL TECHNOLOGY COACH: No focal deficits; alert and oriented times three. (Andree MainP) Assessment and Plan Plan Assessment: - Epigastric and RUQ pain with transaminitis and elevated bilirubin. US gallbladder (06/03) --> Sludge and stones in the gallbladder with thickened wall consistent with cholecystitis. Otherwise negative exam. GS evaluated for possible acute cholecystitis given symptoms, leukocytosis. They ordered MRCP to rule out choledocholithiasis --> Multiple small gallstones in the fundus and layering in the lumen. there is also evidence of layering sludge within the gallbladder lumen. Normal dimension common hepatic duct without filling defects. Last EGD approx a year ago, she is unsure of findings - Transaminitis, yesterday labs as follows: AST-102 ALT-101 T bili-3 Alk phos- 299. No repeat labs from today to evaluate trend. - Leukocytosis- Zosyn 06/05/17 LFts remain elevated. hep panel pending. ?lap hermes still with epigastric discomfort, n/v somewaht imiproved. Plan: monitor labs diet per GS await GS follow up await hep panel Supportive care Pt has been seen and examined by myself and Dr. Núñez and this note is written on his behalf (Andree Main) Physician Comments Patient seen and examined Agree with above Continue with current supportive care Monitor labs Hepatitis panel negative Surgery planning on taking the patient for cholecystectomy Not much to add from a GI standpoint we will sign off (Corby Núñez MD) Andree Main Jun 05, 2017 13:43 Corby Núñez MD Jun 05, 2017 19:40
--- NOTE | 2017-06-05 15:58 | HHI.PR ---
cc: Royce Connolly MD Subjective Subjective Notes Resting in bed Reports she had some anxiety earlier but better now Objective Vitals/I&O Vital Signs Date Time Temp Pulse Resp B/P (MAP) Pulse Ox O2 Delivery O2 Flow Rate FiO2 06/05/17 08:38 99 21 06/05/17 08:00 99.3 65 18 186/95 (125) 06/03/17 15:32 Room Air Labs Laboratory Tests Test 06/05/17 04:08 White Blood Count 10.9 Red Blood Count 3.48 Hemoglobin 11.2 Hematocrit 33.8 Mean Corpuscular Volume 97.1 Mean Corpuscular Hemoglobin 32.3 Mean Corpuscular Hemoglobin Concent 33.2 Red Cell Distribution Width 13.6 Platelet Count 254 Mean Platelet Volume 9.3 Neutrophils (%) (Auto) 59.4 Lymphocytes (%) (Auto) 29.7 Monocytes (%) (Auto) 7.4 Eosinophils (%) (Auto) 2.7 Basophils (%) (Auto) 0.8 Neutrophils # (Auto) 6.5 Lymphocytes # (Auto) 3.2 Monocytes # (Auto) 0.8 Eosinophils # (Auto) 0.3 Basophils # (Auto) 0.1 CBC Comment DIFF FINAL Differential Comment Blood Urea Nitrogen 10 Creatinine 0.81 Random Glucose 96 Total Protein 6.2 Albumin 2.3 Calcium Level 8.8 Alkaline Phosphatase 303 Aspartate Amino Transf (AST/SGOT) 81 Alanine Aminotransferase (ALT/SGPT) 111 Total Bilirubin 2.4 Sodium Level 141 Potassium Level 4.1 Chloride Level 113 Carbon Dioxide Level 19.7 Anion Gap 8 Estimat Glomerular Filtration Rate 73 Hepatitis A IgM Antibody NEGATIVE Hepatitis B Surface Antigen NEGATIVE Hepatitis B Core IgM Antibody NEGATIVE Hepatitis C Antibody NEGATIVE Date/Time Source Procedure Growth Status 06/03/17 16:30 Blood Peripheral Aerobic Blood Culture - Preliminary NO GROWTH IN 2 DAYS Resulted 06/03/17 16:30 Blood Peripheral Anaerobic Blood Culture - Preliminary NO GROWTH IN 2 DAYS Resulted Cardiovascular: Regular Lungs: Clear Abdomen: Other (RUQ tenderness with palpation---mild ) Extremities: No edema A/P Problem List: (1) Elevated liver enzymes ICD Codes: R74.8 - Abnormal levels of other serum enzymes Status: Acute (2) Total bilirubin, elevated ICD Codes: R17 - Unspecified jaundice Status: Acute (3) Gallstones ICD Codes: K80.20 - Calculus of gallbladder without cholecystitis without obstruction Status: Acute (4) Abnormal findings on imaging of biliary tract ICD Codes: R93.2 - Abnormal findings on diagnostic imaging of liver and biliary tract Status: Acute (5) Acute cholecystitis ICD Codes: K81.0 - Acute cholecystitis Status: Acute Assessment and Plan 56 year old female with acute cholecystitis -Will plan for laparoscopic cholecystitis -Obtain consents -Heart heathy diet; NPO after MN -Pain control Attending Statement The exam, history, and the medical decision-making described in the above note were completed with the assistance of the mid-level provider. I reviewed and agree with the findings presented. I attest that I had a [id number] encounter with the patient on the same day, and personally performed and documented my assessment and findings in the medical record. Acute cholecystitis Abdominal exam: stable RUQ pain, no peritonitis still with elevated TB/LFT, will plan for lap hermes and IOC if GI does not want to do preop ERCP d/w patient Sharon Sosa Jun 05, 2017 15:58 Steve Moon MD Jun 09, 2017 06:53
[2017-06-05] MEDS: ACETAMINOPHEN/HYDROcodone 325 MG/10 MG TAB PO PRN (17:06)
[2017-06-05] MEDS: LORazepam 2 MG/ML VIAL IV PRN (17:14)
[2017-06-05] MEDS ORDERED: LACTATED RINGER'S 1000 ML IV PRN (22:15)
[2017-06-05] MEDS ORDERED: POVIDONE IODINE 5% (ANTISEPSIS KIT) 4 APPLICATIONS EACH NARE PRN (22:15)
[2017-06-05] MEDS ORDERED: CHLORHEXIDINE GLUCONATE 2 % 1 PACK (2 CLOTHS) TOPICAL PRN (22:15)
[2017-06-05] MEDS ORDERED: SODIUM CHLORID 0.9% 500 ML IV PRN (22:15)
[2017-06-06] VITALS (9 sets, daily range): BP systolic 112–197; BP diastolic 64–105; PULSE 64–77; RESP 17–19; TEMP 96.2–100; O2SAT 92–99
[2017-06-06] MEDS: RESP: ALBUTEROL 2.5 MG/IPRATROPIUM 0.5 MG NEB (SCH) NEB ×6 (00:17→20:10)
[2017-06-06] MEDS: PIPERACIL-TAZO 3.375 GM PREMIX 50 ML IV SCH ×4 (02:51→16:55)
[2017-06-06] MEDS: LORazepam 2 MG/ML VIAL IV PRN (02:56)
[2017-06-06] MEDS: ACETAMINOPHEN/HYDROcodone 325 MG/10 MG TAB PO PRN ×2 (02:57→08:22)
[2017-06-06] MEDS: SODIUM CHLOR 0.9% 1000 ML INJ 1,000 ML IV SCH ×2 (04:17→14:03)
[2017-06-06] MEDS: ENALAPRILAT 1.25 MG/ML VIAL IV PUSH PRN (06:03)
--- NOTE | 2017-06-06 08:01 | HHI.FPPN ---
Subjective Remarks Pain better today 08/31. Did well with diet yesterday and had no persistent N/V/ D. No new CP or SOB. Anxious per RN. Did better with Ativan q 4 as needed. (Kyle Osorio MD, R3) Objective Vitals Vital Signs Date Time Temp Pulse Resp B/P (MAP) Pulse Ox O2 Delivery O2 Flow Rate FiO2 06/06/17 06:00 99.5 73 19 197/105 (135) 95 06/06/17 04:05 20 06/06/17 00:55 99.4 73 19 175/83 (113) 95 06/06/17 00:20 99 06/05/17 20:00 66 06/05/17 19:45 98.3 68 17 137/82 (100) 99 06/05/17 19:21 96 Nasal Cannula 2.00 06/05/17 16:00 97.2 77 18 195/111 (139) 97 06/05/17 12:00 98.8 59 17 185/95 (125) 98 06/05/17 08:38 99 21 I/O 06/05/17 06/05/17 06/05/17 06/06/17 06/06/17 06/06/17 07:00 15:00 23:00 07:00 15:00 23:00 Intake Total 480 ml 530 ml 1050 ml Balance 480 ml 530 ml 1050 ml Intake Oral 480 ml 480 ml 0 ml IV Total 50 ml 1050 ml # Voids 7 3 2 2 # Bowel Movements 0 0 0 (Kyle Osorio MD, R3) Result Diagram: 06/05/17 0408 06/05/17 0408 Imaging Last 72 hours Impressions Chest X-Ray 06/03/17 1321 Signed Impressions: Service Date/Time: Saturday, June 03, 2017 14:17 - CONCLUSION: No acute disease. No significant change has occurred. Lito Burnett MD Objective Remarks GENERAL: Well-nourished, well-developed patient. No acute distress. SKIN: Warm and dry. No rash. EYES: No scleral icterus. No injection or drainage. PERRLA. EOMI. HENT: Normocephalic. Atraumatic. MMM. NECK: No visible JVD or lymphadenopathy. CARDIOVASCULAR: Warm and well perfused. RESPIRATORY: Normal respiratory effort. GASTROINTESTINAL: Abdomen nondistended. Tender to palpation of the right upper quadrant. No rebound or guarding. Bianchi's sign positive. MUSCULOSKELETAL: Strength grossly WNL. BACK: Without obvious deformity. NEURO/PSYCH: Afocal. Awake, alert, and oriented x3. GI exam as above, however would clarify there is mild voluntary guarding. 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 Discharge Planning Likely within the next 24 hours. Will need cholecystectomy, pain control, and to be tolerating PO diet. (Kyle Osorio MD, R3) Attending Attestation Patient seen and examined with Dr Osorio this am. Agree with plan of care as discussed with me and documented in the resident note. (Farideh Javier MD) Problem List: (1) Acute cholecystitis ICD Codes: K81.0 - Acute cholecystitis Status: Acute Plan: ERCP showed multiple gallstones in the fundus and layering in the lumen. Common bile duct was 6 mm. Plan for ERCP today. Pending these results, may need a cholecystectomy. We appreciate the assistance of gastroenterology, as well as general surgery. Nothing by mouth today. IV normal saline at 100 ML's per hour. Zosyn 3.375 mg every 6 hours IV. Pain control with [place] 5-325 pain 4-6, 10-325 pain 7-10. One time Dilaudid 0.5 mg IV x 1 prior to surgery. Monitor clinical exam. (2) Hypertension ICD Codes: I10 - Essential (primary) hypertension Plan: Persistent HTN 190/110 over past 24 hours. Started lisinopril today. Treating anxiety with Ativan as below. Treating pain as above. Given additional dose of Dilaudid to help with pain. If not improving post operatively with lisinopril, may increase dose or add amlodipine. (3) Depression ICD Codes: F32.9 - Major depressive disorder, single episode, unspecified Status: Acute Plan: Denies any mood symptoms currently. Continue with Prozac 40 mg daily. Continue Abilify 5 mg daily. Add Ativan 0.5 mg q 4 as needed for anxiety. (4) Peptic ulcer disease ICD Codes: K27.9 - Peptic ulcer, site unspecified, unspecified as acute or chronic, without hemorrhage or perforation Status: Chronic Plan: Resume PPI, follow H&H. (5) Nutrition, metabolism, and development symptoms ICD Codes: R63.8 - Other symptoms and signs concerning food and fluid intake Plan: Nutrition: NPO DVT ppx: SCDs IVF: 100 ml/hr NS GI ppx: not indicated. SDW Dr. Javier. (Kyle Osorio MD, R3) Kyle Osorio MD, R3 Jun 06, 2017 08:01 Farideh Javier MD Jun 06, 2017 12:17
[2017-06-06] MEDS: guaiFENesin E.R. 600 MG TAB PO SCH ×2 (08:20→20:33)
[2017-06-06] MEDS: ARIPiprazole 5 MG TAB PO SCH (08:21)
[2017-06-06] MEDS: LISINOPRIL 10 MG TAB PO SCH (08:21)
[2017-06-06] MEDS: FLUoxetine HCL 20 MG CAP PO SCH (08:21)
[2017-06-06] MEDS: SODIUM CHLORIDE 0.9% FLUSH 10 ML FLUSH IV FLUSH SCH ×2 (08:22→20:33)
[2017-06-06 09:12] LABS: ALBUMIN 2.5 GM/DL (3.4-5.0); ALT (GPT) 127 U/L (10-53); AST (GOT) 92 U/L (15-37); BICARBONATE 24.5 MEQ/L (21.0-32.0); BLOOD UREA NITROGEN 9 MG/DL (7-18); CALCIUM 8.6 MG/DL (8.5-10.1); CHLORIDE 108 MEQ/L (98-107); CREATININE 1.04 MG/DL (0.50-1.00); GLOMERULAR FILTRATION RATE 55 ML/MIN (>89); GLUCOSE,RANDOM 149 MG/DL (74-106); SODIUM (NA) 141 MEQ/L (136-145)
[2017-06-06 09:13] LABS: ALKALINE PHOSPHATASE 349 U/L (45-117); TOTAL BILIRUBIN ADULT 2.3 MG/DL (0.2-1.0); TOTAL PROTEIN 6.5 GM/DL (6.4-8.2)
[2017-06-06] MEDS ORDERED: HYDROmorphone HCL PF 1 MG/ML VIAL IV ONE (11:15)
[2017-06-06] MEDS ORDERED: GLYCOPYRROLATE 1 MG/5 ML SYRINGE IV PUSH ONE (12:00)
[2017-06-06] MEDS ORDERED: LACTATED RINGER'S 1000 ML INJ 1,000 ML IV ONE (12:00)
[2017-06-06] MEDS ORDERED: PROPOFOL 200 MG/20 ML AMP IV ONE (12:00)
[2017-06-06] MEDS ORDERED: hydrALAZINE HCL 20 MG/ML VIAL IV ONE (12:00)
[2017-06-06] MEDS ORDERED: HYDROmorphone HCL PF 2 MG/ML VIAL IV ONE (12:00)
[2017-06-06] MEDS ORDERED: ONDANSETRON HCL 4 MG/2 ML VIAL IV ONE (12:00)
[2017-06-06] MEDS ORDERED: NEOSTIGMINE 5 MG/5 ML SYRINGE IV PUSH ONE (12:00)
[2017-06-06] MEDS ORDERED: DEXAMETHASONE SOD PHOS 4 MG/ML VIAL IV ONE (12:00)
[2017-06-06] MEDS ORDERED: ROCURONIUM INJ 50 MG/5 ML SYRINGE IV PUSH ONE (12:00)
[2017-06-06] MEDS ORDERED: LIDOCAINE HCL 1% PF 5 ML SYRINGE OTHER ONE (12:00)
[2017-06-06] MEDS ORDERED: PANTOPRAZOLE SODIUM 40 MG VIAL IV PUSH ONE (12:45)
[2017-06-06] MEDS ORDERED: BUPIVACAINE/EPINEPHRINE 0.25% 50 ML VIAL ONE (14:18)
[2017-06-06] MEDS ORDERED: ACETAMINOPHEN 1000 MG/100 ML 100 ML IV ONE (16:33)
[2017-06-06] MEDS ORDERED: DO NOT ADM ANY ANTICOAGULANT DRUGS PRN (18:49)
[2017-06-06] MEDS ORDERED: *morphine SULFATE 8 MG/ML PERIprocedure ONLY ONE (19:03)
[2017-06-06] MEDS: MORPHINE SULFATE 2 MG/ML INJ IV PUSH PRN (20:34)
--- NOTE | 2017-06-06 22:29 | MP ---
cc: RONY HERNANDES MD DATE OF SURGERY 06/06/17 PREOPERATIVE DIAGNOSIS Acute cholecystitis. POSTOPERATIVE DIAGNOSIS Acute gangrenous severe acute cholecystitis. PROCEDURE 1. Laparoscopic cholecystectomy. 2. Intraoperative cholangiogram. ATTENDING SURGEON Javan Hernandes MD ELECTRICAL PROJECT MANAGER Staff ANESTHESIA General BLOOD LOSS 300 mL COMPLICATIONS None FINDINGS 1. Severe acute cholecystitis with some gangrenous changes of the dome of the gallbladder 2. Intraoperative cholangiogram with significant extravasation of contrast to the cystic duct stump. There were non-diagnostic images on two attempts. INDICATIONS FOR PROCEDURE The patient is a 56-year-old female who was admitted to [facility] with one week of severe right upper quadrant abdominal pain. Workup did show acute cholecystitis. The patient did have elevated liver function tests, however, MRCP was clear. This was thought to be due to gallbladder inflammation. We discussed with the patient laparoscopic cholecystectomy with intraoperative cholangiogram to further evaluate the duct. Risks, benefits, alternatives were discussed with the patient prior to the procedure and the patient agreed to undergo the procedure. PROCEDURE IN DETAIL The patient was taken to the operating room and placed in a supine position, placed under general endotracheal anesthesia. The patient's abdomen was prepped and draped in sterile fashion. Time-out was performed. The abdomen was entered through an OptiView type technique with a 5-mm trocar to the left of the umbilicus. We directly entered the abdomen under visualization and insufflated the abdomen. We were able to place a 10-mm trocar in the subxiphoid position and two 5 mm ports in the right upper quadrant. We were able to at this point in time grasp the gallbladder with the [place] retractor and tract upward. This was inflamed, distended with some early gangrenous changes and was densely adhered to the surrounding omentum and duodenum. We started extensive lysis of inflammatory adhesions, mostly bluntly as well as some with local hook electrocautery, to take down the adhesions. The gallbladder was so distended, we had to decompress it. We used a suction doughnut batter mixer to make a small cholecystotomy at the dome of the gallbladder and the gallbladder was decompressed with the suction doughnut batter mixer. Again, with the [place] grasper we were able to retract upward on the gallbladder and visualize the infundibulum. We had good visualization of this and we took down the peritoneum over the viscera with the hook electrocautery. We then used a [place] dissector to dissect out the cystic duct as well as the cystic artery. We identified a single cystic structure entering the gallbladder and the critical view of safety was obtained. We divided this with endoshears. We did not clip the cystic duct as we planned to do an IOC. We did place hemoclips on the cystic artery and divide this with electrocautery hook. We dissected off of the gallbladder fossa and then were able at this point to perform IOC. We placed a Invoiceable cholangiogram catheter through a separate stab incision directly into the cystic duct stump. This seemed to pass into the cystic duct stump easily and we performed a cholangiogram. The cholangiogram showed significant extravasation of contract with no obvious source of where this was coming from as we did not have an obvious leak at the cystic duct stump. We evaluated the cystic duct. There was really no evidence of any cystic duct ductotomy or dissection of the cystic duct. We performed a second try, again we just basically had contrast into the right upper quadrant. We used a suction doughnut batter mixer to irrigate and suction out until all succinate was clear. No bile leak and no bleeding. We continued to take the gallbladder off the gallbladder fossa and removed this from the abdomen with the EndoCatch bag. The gallbladder was inspected on the back table and the cystic duct, single cystic structure leaving the gallbladder at the point of division. We then placed two hemoclips on the cystic duct stump and placed some Surgicel powder in the right upper quadrant as well giving it excellent hemostasis. We did place a 19-[place] round [place] drain in the right upper quadrant into the gallbladder fossa and sutured in place with a nylon suture. At this point in time, there was no other evidence of any intraabdominal pathology. We removed ports under visualization of the laparoscope and expressed pneumoperitoneum. We closed the 10 mm subxiphoid port with a [id number] 0 Vicryl suture at the anterior rectus sheath. We closed all skin with 4-0 Monocryl and Dermabond. The drain was placed to bulb suction. The patient was transferred to the PACU in stable condition. The patient tolerated the procedure well. No apparent complications. All counts were correct. I was present and scrubbed for the entire procedure. MD LUIS F Leigh/ /6:35 PM /9:56 PM MTDD
[2017-06-07] VITALS (8 sets, daily range): BP systolic 105–132; BP diastolic 67–88; PULSE 68–80; RESP 17–19; TEMP 98.5–98.9; O2SAT 93–96
[2017-06-07] MEDS: SODIUM CHLOR 0.9% 1000 ML INJ 1,000 ML IV SCH ×3 (00:03→20:03)
[2017-06-07] MEDS: PIPERACIL-TAZO 3.375 GM PREMIX 50 ML IV SCH ×4 (02:41→20:50)
[2017-06-07] MEDS: ACETAMINOPHEN/HYDROcodone 325 MG/10 MG TAB PO PRN ×5 (02:58→20:50)
[2017-06-07] MEDS: RESP: ALBUTEROL 2.5 MG/IPRATROPIUM 0.5 MG NEB (SCH) NEB ×5 (03:42→16:44)
[2017-06-07] MEDS: MORPHINE SULFATE 2 MG/ML INJ IV PUSH PRN (05:22)
[2017-06-07] MEDS: FLUoxetine HCL 20 MG CAP PO SCH (08:29)
[2017-06-07] MEDS: LISINOPRIL 10 MG TAB PO SCH (08:29)
[2017-06-07] MEDS: guaiFENesin E.R. 600 MG TAB PO SCH ×2 (08:29→20:50)
[2017-06-07] MEDS: ARIPiprazole 5 MG TAB PO SCH (08:29)
[2017-06-07] MEDS: SODIUM CHLORIDE 0.9% FLUSH 10 ML FLUSH IV FLUSH SCH ×2 (08:30→21:00)
--- NOTE | 2017-06-07 08:46 | HHI.FPPN ---
Subjective Remarks Doing well Pain 6/10 Much better since surgery Tolerating clear yesterday and wanting full diet today. Asking when she can go home. No N/V/D. Had "normal" formed BM. (Kyle Osorio MD, R3) Objective Vitals Vital Signs Date Time Temp Pulse Resp B/P (MAP) Pulse Ox O2 Delivery O2 Flow Rate FiO2 06/07/17 08:00 98.7 69 17 108/69 (82) 95 06/07/17 04:00 98.9 71 19 119/67 (84) 93 06/07/17 00:00 98.7 72 18 132/88 (103) 94 06/06/17 20:10 94 Nasal Cannula 2.00 06/06/17 19:45 96.2 74 18 112/67 (82) 92 06/06/17 19:30 73 21 142/68 (92) 97 Nasal Cannula 3 06/06/17 19:15 74 19 136/65 (88) 96 Nasal Cannula 3 06/06/17 19:00 74 21 154/76 (102) 95 Nasal Cannula 3 06/06/17 18:50 98.5 74 21 152/70 (97) 96 Nasal Cannula 3 06/06/17 16:00 99.0 64 17 173/91 (118) 93 06/06/17 12:00 64 06/06/17 12:00 99.6 76 17 141/64 (89) 98 I/O 06/06/17 06/06/17 06/06/17 06/07/17 06/07/17 06/07/17 07:00 15:00 23:00 07:00 15:00 23:00 Intake Total 1050 ml 0 ml 1740 ml 240 ml Output Total 315 ml 30 ml Balance 1050 ml 0 ml 1425 ml 210 ml Intake Oral 0 ml 0 ml 240 ml 240 ml IV Total 1050 ml Other 1500 ml Output Drainage Total 15 ml 30 ml Estimated Blood Loss 300 ml # Voids 2 4 2 2 # Bowel Movements 0 0 0 0 (Kyle Osorio MD, R3) Result Diagram: 06/05/17 0408 06/06/17 0510 Objective Remarks GENERAL: Well-nourished, well-developed patient. No acute distress. SKIN: Warm and dry. No rash. EYES: No scleral icterus. No injection or drainage. PERRLA. EOMI. HENT: Normocephalic. Atraumatic. MMM. NECK: No visible JVD or lymphadenopathy. CARDIOVASCULAR: Warm and well perfused. RESPIRATORY: Normal respiratory effort. GASTROINTESTINAL: Abdomen nondistended. 3, 1 cm linear erythematous port site that are CDI. Tender to palpation of the right upper quadrant. No rebound or guarding. Bianchi's sign positive. BS present. MUSCULOSKELETAL: Strength grossly WNL. BACK: Without obvious deformity. NEURO/PSYCH: Afocal. Awake, alert, and oriented x3. GI exam as above, however would clarify there is mild voluntary guarding. 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 Cholecystectomy on 06/06/2017. Tolerating surgery well. Discharge Planning Likely within the next 24 hours. Pending HIDA scan, pain control, and diet. (Kyle Osorio MD, R3) Attending Attestation Patient seen and examined with Dr. Osorio this morning. Agree with plan of care as discussed with me and documented in the resident note. (Farideh Javier MD) Problem List: (1) Acute cholecystitis ICD Codes: K81.0 - Acute cholecystitis Status: Acute Plan: Cholecystectomy 06/06/2017. HIDA scan today given possible common bile duct injury / retained stone. Hep lock IV normal saline at 100 ML's per hour. Zosyn 3.375 mg every 6 hours IV. D/C upon discharge. Pain control as guided by surgery. Tolerating PO. Monitor clinical exam. (2) Hypertension ICD Codes: I10 - Essential (primary) hypertension Plan: HTN resolved with cholecystomy, pain control, and lisinopril. (3) Depression ICD Codes: F32.9 - Major depressive disorder, single episode, unspecified Status: Acute Plan: Denies any mood symptoms currently. Continue with Prozac 40 mg daily. Continue Abilify 5 mg daily. Add Ativan 0.5 mg q 4 as needed for anxiety. (4) Peptic ulcer disease ICD Codes: K27.9 - Peptic ulcer, site unspecified, unspecified as acute or chronic, without hemorrhage or perforation Status: Chronic Plan: Resume PPI, follow H&H. (5) Nutrition, metabolism, and development symptoms ICD Codes: R63.8 - Other symptoms and signs concerning food and fluid intake Plan: Nutrition: advance at discretion of surgery. DVT ppx: SCDs IVF: PO GI ppx: PPI [address] Javier. (Kyle Osorio MD, R3) Kyle Osorio MD, R3 Jun 07, 2017 08:46 Farideh Javier MD Jun 07, 2017 13:51
[2017-06-07 10:09] LABS: AUTOMATED NEUTROPHIL # 13.7 TH/MM3 (1.8-7.7); BASOPHIL # 0.1 TH/MM3 (0-0.2); BASOPHIL % 0.6 % (0.0-2.0); EOSINOPHIL % 0.2 % (0.0-4.0); HEMATOCRIT 33.9 % (35.0-46.0); HEMOGLOBIN 11.3 GM/DL (11.6-15.3); LYMPH % 16.6 % (9.0-44.0); MEAN CELL VOLUME 97.3 FL (80.0-100.0); MEAN CORPUSCULAR HEMOGLOBIN 32.4 PG (27.0-34.0); MEAN CORPUSCULAR HGB CONC 33.3 % (32.0-36.0); MEAN PLATELET VOLUME 8.7 FL (7.0-11.0); MONO % 8.2 % (0.0-8.0); MONOCYTE # 1.5 TH/MM3 (0-0.9); NEUT % 74.4 % (16.0-70.0); PLATELET COUNT 320 TH/MM3 (150-450); RED BLOOD COUNT 3.49 MIL/MM3 (4.00-5.30); RED CELL DISTRIBUTION WIDTH 14.3 % (11.6-17.2); WHITE BLOOD COUNT 18.4 TH/MM3 (4.0-11.0)
[2017-06-07 10:51] LABS: ALBUMIN 2.4 GM/DL (3.4-5.0); ALKALINE PHOSPHATASE 268 U/L (45-117); ALT (GPT) 106 U/L (10-53); AST (GOT) 51 U/L (15-37); BICARBONATE 24.5 MEQ/L (21.0-32.0); BLOOD UREA NITROGEN 8 MG/DL (7-18); CALCIUM 9.2 MG/DL (8.5-10.1); CHLORIDE 103 MEQ/L (98-107); CREATININE 1.08 MG/DL (0.50-1.00); GLOMERULAR FILTRATION RATE 52 ML/MIN (>89); GLUCOSE,RANDOM 147 MG/DL (74-106); SODIUM (NA) 138 MEQ/L (136-145); TOTAL BILIRUBIN ADULT 1.5 MG/DL (0.2-1.0); TOTAL PROTEIN 6.3 GM/DL (6.4-8.2)
--- NOTE | 2017-06-07 16:39 | HHI.PR ---
Subjective Subjective Notes Resting in bed Mild pain at drain site Objective Vitals/I&O Vital Signs Date Time Temp Pulse Resp B/P (MAP) Pulse Ox O2 Delivery O2 Flow Rate FiO2 06/07/17 16:03 80 06/07/17 12:00 98.7 17 131/88 (102) 95 06/07/17 08:49 Nasal Cannula 2.00 06/06/17 08:16 21 Labs Laboratory Tests Test 06/07/17 09:17 White Blood Count 18.4 Red Blood Count 3.49 Hemoglobin 11.3 Hematocrit 33.9 Mean Corpuscular Volume 97.3 Mean Corpuscular Hemoglobin 32.4 Mean Corpuscular Hemoglobin Concent 33.3 Red Cell Distribution Width 14.3 Platelet Count 320 Mean Platelet Volume 8.7 Neutrophils (%) (Auto) 74.4 Lymphocytes (%) (Auto) 16.6 Monocytes (%) (Auto) 8.2 Eosinophils (%) (Auto) 0.2 Basophils (%) (Auto) 0.6 Neutrophils # (Auto) 13.7 Lymphocytes # (Auto) 3.0 Monocytes # (Auto) 1.5 Eosinophils # (Auto) 0.0 Basophils # (Auto) 0.1 CBC Comment DIFF FINAL Differential Comment Blood Urea Nitrogen 8 Creatinine 1.08 Random Glucose 147 Total Protein 6.3 Albumin 2.4 Calcium Level 9.2 Alkaline Phosphatase 268 Aspartate Amino Transf (AST/SGOT) 51 Alanine Aminotransferase (ALT/SGPT) 106 Total Bilirubin 1.5 Sodium Level 138 Potassium Level 3.7 Chloride Level 103 Carbon Dioxide Level 24.5 Anion Gap 11 Estimat Glomerular Filtration Rate 52 Date/Time Source Procedure Growth Status 06/03/17 16:30 Blood Peripheral Aerobic Blood Culture - Preliminary NO GROWTH IN 4 DAYS Resulted 06/03/17 16:30 Blood Peripheral Anaerobic Blood Culture - Preliminary NO GROWTH IN 4 DAYS Resulted Cardiovascular: Regular Lungs: Clear Abdomen: Other (lap sites c/d/i; MAXIMO with dark draiange), Post-op tenderness Extremities: No edema A/P Problem List: (1) Elevated liver enzymes ICD Codes: R74.8 - Abnormal levels of other serum enzymes Status: Acute (2) Total bilirubin, elevated ICD Codes: R17 - Unspecified jaundice Status: Acute (3) Gallstones ICD Codes: K80.20 - Calculus of gallbladder without cholecystitis without obstruction Status: Acute (4) Abnormal findings on imaging of biliary tract ICD Codes: R93.2 - Abnormal findings on diagnostic imaging of liver and biliary tract Status: Acute (5) Acute cholecystitis ICD Codes: K81.0 - Acute cholecystitis Status: Acute Assessment and Plan 56 year old female with acute cholecystitis; POD1 lap hermes with drain placement -Heart healthy diet -Repeat labs in AM -If liver enzymes still elevated ----will evaluate at that time -Will hold off now on HIDA scan ---discussed with Dr. Courtney Attending Statement The exam, history, and the medical decision-making described in the above note were completed with the assistance of the mid-level provider. I reviewed and agree with the findings presented. I attest that I had a [id number] encounter with the patient on the same day, and personally performed and documented my assessment and findings in the medical record. s/p lap hermes, stable Abdominal exam: stable postop tenderness, no peritonitis, incision clean/dry/ intact MAXIMO clear continue postoperative management LFT still abnormal, unable to do IOC, d/w patient, may need ERCP for diagnostic/ therapeutic reasons for evaluate for CBD stones Sharon Sosa Jun 07, 2017 16:39 Steve Moon MD Jun 09, 2017 07:03
[2017-06-07] MEDS: traZODone HCL 100 MG TAB PO PRN (23:53)
[2017-06-08] VITALS (17 sets, daily range): BP systolic 97–179; BP diastolic 61–88; PULSE 57–80; RESP 17–18; TEMP 96.4–99.3; O2SAT 94–99
[2017-06-08] MEDS ORDERED: RESP: ALBUTEROL 2.5 MG/3 ML NEB (PRN) NEB (00:15)
[2017-06-08] MEDS: RESP: ALBUTEROL 2.5 MG/IPRATROPIUM 0.5 MG NEB (SCH) INH ×5 (03:10→19:18)
[2017-06-08] MEDS: PIPERACIL-TAZO 3.375 GM PREMIX 50 ML IV SCH ×4 (03:32→20:57)
[2017-06-08 04:51] LABS: ALBUMIN 2.3 GM/DL (3.4-5.0); AST (GOT) 79 U/L (15-37); BICARBONATE 26.3 MEQ/L (21.0-32.0); BLOOD UREA NITROGEN 8 MG/DL (7-18); CHLORIDE 105 MEQ/L (98-107); CREATININE 1.09 MG/DL (0.50-1.00); GLOMERULAR FILTRATION RATE 52 ML/MIN (>89); GLUCOSE,RANDOM 137 MG/DL (74-106); SODIUM (NA) 141 MEQ/L (136-145)
[2017-06-08 04:54] LABS: ALKALINE PHOSPHATASE 418 U/L (45-117); ALT (GPT) 112 U/L (10-53); TOTAL BILIRUBIN ADULT 2.8 MG/DL (0.2-1.0); TOTAL PROTEIN 6.5 GM/DL (6.4-8.2)
[2017-06-08] MEDS: SODIUM CHLOR 0.9% 1000 ML INJ 1,000 ML IV SCH ×2 (06:03→16:03)
[2017-06-08 06:16] LABS: BASOPHIL # 0.1 TH/MM3 (0-0.2); BASOPHIL % 0.6 % (0.0-2.0); EOSINOPHIL # 0.2 TH/MM3 (0-0.4); EOSINOPHIL % 1.5 % (0.0-4.0); HEMATOCRIT 31.4 % (35.0-46.0); HEMOGLOBIN 10.7 GM/DL (11.6-15.3); LYMPHOCYTE # 2.8 TH/MM3 (1.0-4.8); MEAN CORPUSCULAR HEMOGLOBIN 32.7 PG (27.0-34.0); MEAN CORPUSCULAR HGB CONC 34.1 % (32.0-36.0); MEAN PLATELET VOLUME 8.2 FL (7.0-11.0); MONO % 9.9 % (0.0-8.0); MONOCYTE # 1.4 TH/MM3 (0-0.9); PLATELET COUNT 336 TH/MM3 (150-450); RED BLOOD COUNT 3.27 MIL/MM3 (4.00-5.30); WHITE BLOOD COUNT 14.5 TH/MM3 (4.0-11.0)
[2017-06-08] MEDS: LACTULOSE SYRUP 20 GM/30 ML CUP PO PRN (09:09)
[2017-06-08] MEDS: FLUoxetine HCL 20 MG CAP PO SCH (09:09)
[2017-06-08] MEDS: guaiFENesin E.R. 600 MG TAB PO SCH ×2 (09:09→20:57)
[2017-06-08] MEDS: LISINOPRIL 10 MG TAB PO SCH (09:09)
[2017-06-08] MEDS: ARIPiprazole 5 MG TAB PO SCH (09:09)
[2017-06-08] MEDS: ACETAMINOPHEN/HYDROcodone 325 MG/10 MG TAB PO PRN ×4 (09:10→20:57)
[2017-06-08] MEDS: SODIUM CHLORIDE 0.9% FLUSH 10 ML FLUSH IV FLUSH SCH ×2 (09:21→20:57)
--- NOTE | 2017-06-08 10:09 | HHI.FPPN ---
Subjective Remarks In more pain today. Started last night. 10/31 in her upper abdomen, related to taking deep breath. She denies fevers or chills. She denies SOB, but does report increased pain with deep inspiration. She was ambulating yesterday without difficulty. Today feeling more bloated and did not have a BM in past 12 hours. Requesting lowering her diet to full liquids. (Kyle Osorio MD, R3) Objective Vitals Vital Signs Date Time Temp Pulse Resp B/P (MAP) Pulse Ox O2 Delivery O2 Flow Rate FiO2 06/08/17 08:10 99 21 06/08/17 08:00 99.3 78 17 97/68 (78) 97 06/08/17 04:16 72 06/08/17 03:47 99.3 77 18 124/61 (82) 97 06/08/17 00:31 98.9 71 18 143/79 (100) 98 06/08/17 00:15 98 Nasal Cannula 2.00 06/08/17 00:00 73 06/07/17 23:40 Nasal Cannula 3.00 06/07/17 22:49 Room Air 06/07/17 22:10 18 06/07/17 20:45 98.5 73 18 105/71 (82) 96 06/07/17 20:00 68 06/07/17 16:03 80 06/07/17 12:00 98.7 68 17 131/88 (102) 95 I/O 06/07/17 06/07/17 06/07/17 06/08/17 06/08/17 06/08/17 07:00 15:00 23:00 07:00 15:00 23:00 Intake Total 240 ml 480 ml 530 ml 530 ml Output Total 30 ml 90 ml 20 ml Balance 210 ml 480 ml 440 ml 510 ml Intake Oral 240 ml 480 ml 480 ml 480 ml IV Total 50 ml 50 ml Output Drainage Total 30 ml 90 ml 20 ml # Voids 2 4 3 2 # Bowel Movements 0 0 0 0 (Kyle Osorio MD, R3) Result Diagram: 06/08/17 0553 06/08/17 0346 Objective Remarks GENERAL: Well-nourished, well-developed patient. No acute distress. SKIN: Warm and dry. No rash. EYES: No scleral icterus. No injection or drainage. PERRLA. EOMI. HENT: Normocephalic. Atraumatic. MMM. NECK: No visible JVD or lymphadenopathy. CARDIOVASCULAR: Warm and well perfused. RESPIRATORY: Normal respiratory effort. Left base crackles. GASTROINTESTINAL: Abdomen nondistended. 3, 1 cm linear erythematous port site that are CDI. Tender to palpation of the right upper quadrant. No rebound or guarding. Bianchi's sign positive. BS present. MUSCULOSKELETAL: Strength grossly WNL. BACK: Without obvious deformity. NEURO/PSYCH: Afocal. Awake, alert, and oriented x3. GI exam as above, however would clarify there is mild voluntary guarding. 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 Cholecystectomy on 06/06/2017. Tolerating surgery well. Discharge Planning Likely within the next 24 hours. Pending ERCP findings scan, pain control, and diet. (Kyle Osorio MD, R3) Attending Attestation Patient seen and examined. Case reviewed and discussed with Dr Osorio. Agree with plan of care as discussed with me and documented in the resident note. (Farideh Javier MD) Problem List: (1) Acute cholecystitis ICD Codes: K81.0 - Acute cholecystitis Status: Acute Plan: Cholecystectomy 06/06/2017. Increasing Bilirubin. Will proceed with ERCP if rec by GI. Hep lock IV normal saline at 100 ML's per hour. Zosyn 3.375 mg every 6 hours IV. D/C upon discharge. Pain control as guided by surgery. Tolerating PO. Decrease to full liquids. Monitor clinical exam. (2) Hypertension ICD Codes: I10 - Essential (primary) hypertension Plan: HTN resolved with cholecystomy, pain control, and lisinopril. (3) Depression ICD Codes: F32.9 - Major depressive disorder, single episode, unspecified Status: Acute Plan: Denies any mood symptoms currently. Continue with Prozac 40 mg daily. Continue Abilify 5 mg daily. Add Ativan 0.5 mg q 4 as needed for anxiety. (4) Peptic ulcer disease ICD Codes: K27.9 - Peptic ulcer, site unspecified, unspecified as acute or chronic, without hemorrhage or perforation Status: Chronic Plan: Resume PPI, follow H&H. (5) Nutrition, metabolism, and development symptoms ICD Codes: R63.8 - Other symptoms and signs concerning food and fluid intake Plan: Nutrition: advance at discretion of surgery. DVT ppx: SCDs IVF: PO GI ppx: PPI [address] Javier. (Kyle Osorio MD, R3) Kyle Osorio MD, R3 Jun 08, 2017 10:09 Farideh Javier MD Jun 08, 2017 12:38
--- NOTE | 2017-06-08 11:34 | HHI.GIFU ---
Subjective Remarks GI reconsulted for elevated LFTs and abd pain. Pt is s/p lap cholecystectomy. She says her abd pain never improved. Some n/v this morning. Had few bites oatmeal. (Andree Main) Objective Vitals I&O Vital Signs Date Time Temp Pulse Resp B/P (MAP) Pulse Ox O2 Delivery O2 Flow Rate FiO2 06/08/17 08:10 99 21 06/08/17 08:00 99.3 78 17 97/68 (78) 97 06/08/17 08:00 60 06/08/17 04:16 72 06/08/17 03:47 99.3 77 18 124/61 (82) 97 06/08/17 00:31 98.9 71 18 143/79 (100) 98 06/08/17 00:15 98 Nasal Cannula 2.00 06/08/17 00:00 73 06/07/17 23:40 Nasal Cannula 3.00 06/07/17 22:49 Room Air 06/07/17 22:10 18 06/07/17 20:45 98.5 73 18 105/71 (82) 96 06/07/17 20:00 68 06/07/17 16:03 80 06/07/17 12:00 98.7 68 17 131/88 (102) 95 I/O 06/07/17 06/07/17 06/07/17 06/08/17 06/08/17 06/08/17 06:59 14:59 22:59 06:59 14:59 22:59 Intake Total 240 ml 480 ml 530 ml 530 ml Output Total 30 ml 90 ml 20 ml Balance 210 ml 480 ml 440 ml 510 ml Intake Oral 240 ml 480 ml 480 ml 480 ml IV Total 50 ml 50 ml Output Drainage Total 30 ml 90 ml 20 ml # Voids 2 4 3 2 # Bowel Movements 0 0 0 0 Laboratory Laboratory Tests Test 06/08/17 03:46 06/08/17 05:53 Blood Urea Nitrogen 8 Creatinine 1.09 Random Glucose 137 Total Protein 6.5 Albumin 2.3 Calcium Level 9.0 Alkaline Phosphatase 418 Aspartate Amino Transf (AST/SGOT) 79 Alanine Aminotransferase (ALT/SGPT) 112 Total Bilirubin 2.8 Sodium Level 141 Potassium Level 3.8 Chloride Level 105 Carbon Dioxide Level 26.3 Anion Gap 10 Estimat Glomerular Filtration Rate 52 White Blood Count 14.5 Red Blood Count 3.27 Hemoglobin 10.7 Hematocrit 31.4 Mean Corpuscular Volume 96.0 Mean Corpuscular Hemoglobin 32.7 Mean Corpuscular Hemoglobin Concent 34.1 Red Cell Distribution Width 14.0 Platelet Count 336 Mean Platelet Volume 8.2 Neutrophils (%) (Auto) 69.0 Lymphocytes (%) (Auto) 19.0 Monocytes (%) (Auto) 9.9 Eosinophils (%) (Auto) 1.5 Basophils (%) (Auto) 0.6 Neutrophils # (Auto) 10.0 Lymphocytes # (Auto) 2.8 Monocytes # (Auto) 1.4 Eosinophils # (Auto) 0.2 Basophils # (Auto) 0.1 CBC Comment DIFF FINAL Differential Comment Date/Time Source Procedure Growth Status 06/03/17 16:30 Blood Peripheral Aerobic Blood Culture - Final NO GROWTH IN 5 DAYS Complete 06/03/17 16:30 Blood Peripheral Anaerobic Blood Culture - Final NO GROWTH IN 5 DAYS Complete Imaging Last Impressions Chest X-Ray 06/03/17 1321 Signed Impressions: Service Date/Time: Saturday, June 03, 2017 14:17 - CONCLUSION: No acute disease. No significant change has occurred. Lito Burnett MD Gall Bladder Ultrasound 06/03/17 0000 Signed Impressions: Service Date/Time: Saturday, June 03, 2017 15:08 - CONCLUSION: Sludge and stones in the gallbladder with thickened wall consistent with cholecystitis. Otherwise negative exam Lito Burnett MD Cholangiopancreatography MRI 06/03/17 0000 Signed Impressions: Service Date/Time: Saturday, June 03, 2017 18:21 - CONCLUSION: 1. Multiple small gallstones in the fundus and layering in the lumen. There is also evidence of layering sludge within the gallbladder lumen. 2. Normal dimension common hepatic duct without filling defects. Robby Asif MD Physical Exam HEENT: PERRL; normocephalic; atraumatic; no jaundice. CHEST: CTA CARDIAC: RRR ABDOMEN: Soft,mildly distended, epigastric TTP; no hepatosplenomegaly; bowel sounds are present in all four quadrants. EXTREMITIES: No clubbing, cyanosis, or edema. SKIN: Normal; no rash; no jaundice. BUNDLE TIER AND LABELER: No focal deficits; alert and oriented times three. (Andree Main) Assessment and Plan Plan Assessment: - Epigastric and RUQ pain with transaminitis and elevated bilirubin. US gallbladder (06/03) --> Sludge and stones in the gallbladder with thickened wall consistent with cholecystitis. Otherwise negative exam. GS evaluated for possible acute cholecystitis given symptoms, leukocytosis. They ordered MRCP to rule out choledocholithiasis --> Multiple small gallstones in the fundus and layering in the lumen. there is also evidence of layering sludge within the gallbladder lumen. Normal dimension common hepatic duct without filling defects. Last EGD approx a year ago, she is unsure of findings - Transaminitis, yesterday labs as follows: AST-102 ALT-101 T bili-3 Alk phos- 299. No repeat labs from today to evaluate trend. - Leukocytosis- Zosyn 06/05/17 LFts remain elevated. hep panel pending. ?lap hermes still with epigastric discomfort, n/v somewaht imiproved. 06/08/17 - now s/p lap hermes, finding acute gangrenous cholecystitis, and has persistently elevated LFTs and persistent abd pain, never improved admits n/v as well. GI reconsulted. 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 Plan: - CT abd - NPO for now - obtain consent - monitor labs - supportive care Pt has been seen and examined by myself and Dr. Núñez and this note is written on his behalf (Andree Main) Physician Comments Patient seen and examined Agree with above Continue with current supportive care Monitor labs CT of the abdomen done earlier today is basically showing inflammatory changes but no dilation of the bile duct LFTs here most likely secondary to the infectious process and the residual inflammation and infection from the gangrenous cholecystitis Would continue for now with antibiotics and monitoring of labs Further recommendations shall depend on the hospital course (Corby Núñez MD) Andree Main Jun 08, 2017 11:34 Corby Núñez MD Jun 08, 2017 21:54
[2017-06-08] MEDS: MORPHINE SULFATE 2 MG/ML INJ IV PUSH PRN (11:45)
--- NOTE | 2017-06-08 12:20 | HHI.PR ---
Subjective Subjective Notes Resting in bed Still with abdominal pain "I feel kind of sluggish today." Objective Vitals/I&O Vital Signs Date Time Temp Pulse Resp B/P (MAP) Pulse Ox O2 Delivery O2 Flow Rate FiO2 06/08/17 08:10 99 21 06/08/17 08:00 99.3 78 17 97/68 (78) 06/08/17 00:15 Nasal Cannula 2.00 Labs Laboratory Tests Test 06/08/17 03:46 06/08/17 05:53 Blood Urea Nitrogen 8 Creatinine 1.09 Random Glucose 137 Total Protein 6.5 Albumin 2.3 Calcium Level 9.0 Alkaline Phosphatase 418 Aspartate Amino Transf (AST/SGOT) 79 Alanine Aminotransferase (ALT/SGPT) 112 Total Bilirubin 2.8 Sodium Level 141 Potassium Level 3.8 Chloride Level 105 Carbon Dioxide Level 26.3 Anion Gap 10 Estimat Glomerular Filtration Rate 52 White Blood Count 14.5 Red Blood Count 3.27 Hemoglobin 10.7 Hematocrit 31.4 Mean Corpuscular Volume 96.0 Mean Corpuscular Hemoglobin 32.7 Mean Corpuscular Hemoglobin Concent 34.1 Red Cell Distribution Width 14.0 Platelet Count 336 Mean Platelet Volume 8.2 Neutrophils (%) (Auto) 69.0 Lymphocytes (%) (Auto) 19.0 Monocytes (%) (Auto) 9.9 Eosinophils (%) (Auto) 1.5 Basophils (%) (Auto) 0.6 Neutrophils # (Auto) 10.0 Lymphocytes # (Auto) 2.8 Monocytes # (Auto) 1.4 Eosinophils # (Auto) 0.2 Basophils # (Auto) 0.1 CBC Comment DIFF FINAL Differential Comment Date/Time Source Procedure Growth Status 06/03/17 16:30 Blood Peripheral Aerobic Blood Culture - Final NO GROWTH IN 5 DAYS Complete 06/03/17 16:30 Blood Peripheral Anaerobic Blood Culture - Final NO GROWTH IN 5 DAYS Complete Cardiovascular: Regular Lungs: Clear Abdomen: Other (lap sites c/d/i with skin glue in place; MAXIMO with dark brown clear drainage; not cloudy ) Extremities: No edema A/P Problem List: (1) Elevated liver enzymes ICD Codes: R74.8 - Abnormal levels of other serum enzymes Status: Acute (2) Total bilirubin, elevated ICD Codes: R17 - Unspecified jaundice Status: Acute (3) Gallstones ICD Codes: K80.20 - Calculus of gallbladder without cholecystitis without obstruction Status: Acute (4) Abnormal findings on imaging of biliary tract ICD Codes: R93.2 - Abnormal findings on diagnostic imaging of liver and biliary tract Status: Acute (5) Acute cholecystitis ICD Codes: K81.0 - Acute cholecystitis Status: Acute Assessment and Plan 56 year old female with acute cholecystitis; POD1 lap hermes with drain placement -NPO -Liver enzymes trending up ----I spoke with Hemalatha CLAROS--- patient may need post op lap hermes ERCP -Will need to continue to monitor liver enzymes -Discussed with Dr. Javier, Dr. Osorio and Hemalatha CLAROS Attending Statement The exam, history, and the medical decision-making described in the above note were completed with the assistance of the mid-level provider. I reviewed and agree with the findings presented. I attest that I had a [id number] encounter with the patient on the same day, and personally performed and documented my assessment and findings in the medical record. s/p lap hermes, stable Abdominal exam: stable postop tenderness, no peritonitis, incision clean/dry/ intact MAXIMO clear increased LFT, will ask GI to see Sharon Sosa/First Naeem CLAROS Jun 08, 2017 12:20 Steve Moon MD Jun 09, 2017 07:21
[2017-06-08] MEDS ORDERED: DIATRIZOATE MEGLUM/DIATRIZOATE SOD 9 ML CUP PO ONE ×2 (13:30→14:00)
[2017-06-08] MEDS ORDERED: IOHEXOL 350 MG/ML 10 ML VIAL (for RAD DIAG) IVCONTRAST ONE (18:09)
--- NOTE | 2017-06-08 18:56 | RADRPT ---
EXAM DATE/TIME: 06/08/2017 18:05 [facility] COMPARISON: No previous studies available for comparison. INDICATIONS : Elevated LFTs status post cholecystectomy. IV CONTRAST: 70 cc Omnipaque 350 (iohexol) IV ORAL CONTRAST: Prescribed oral contrast ingested. RADIATION DOSE: 13.78 CTDIvol (mGy) MEDICAL HISTORY : Gastroesophageal reflux disease. SURGICAL HISTORY : Hysterectomy. Cholecystectomy. ENCOUNTER: Initial ACUITY: 1 day PAIN SCALE: 0/10 LOCATION: abdomen TECHNIQUE: Volumetric scanning of the abdomen and pelvis was performed. Using automated exposure control and ad justment of the mA and/or kV according to patient size, radiation dose was kept as low as reasonably achievable to obtain optimal diagnostic quality images. DICOM format image data is available electro nically for review and comparison. FINDINGS: There is dependent atelectasis in both lungs. Small right pleural effusion. No acute findings in the liver, spleen, adrenals, kidneys or pancreas. There is a drainage catheter i n the right upper quadrant gallbladder bed. There is a small amount of free air present. They are inf lammatory or edematous changes in right upper quadrant. No acute bony abnormalities. Small and free fluid in the pelvis. CONCLUSION: 1. Postoperative cholecystectomy with drain in the right upper quadrant in the gallbladder bed. There is still some loculated air and trace fluid in the gallbladder bed as well as inflammatory or edemat ous changes in right upper quadrant fat. Trace free air is also present around the liver. No drainabl e fluid collections present. No biliary ductal dilatation. Royce Haynes MD on June 08, 2017 at 18:50 Board Certified Radiologist. This report was verified electronically.
[2017-06-08] MEDS: traZODone HCL 100 MG TAB PO PRN (23:19)
[2017-06-09] VITALS (16 sets, daily range): BP systolic 115–146; BP diastolic 57–99; PULSE 62–95; RESP 16–20; TEMP 97.6–98.9; O2SAT 95–98
[2017-06-09] MEDS: RESP: ALBUTEROL 2.5 MG/IPRATROPIUM 0.5 MG NEB (SCH) INH ×6 (00:46→20:33)
[2017-06-09] MEDS: ACETAMINOPHEN/HYDROcodone 325 MG/10 MG TAB PO PRN ×6 (01:20→21:34)
[2017-06-09] MEDS: PIPERACIL-TAZO 3.375 GM PREMIX 50 ML IV SCH ×4 (01:22→21:23)
[2017-06-09] MEDS: SODIUM CHLOR 0.9% 1000 ML INJ 1,000 ML IV SCH (01:27)
[2017-06-09 07:46] LABS: AUTOMATED NEUTROPHIL # 6.5 TH/MM3 (1.8-7.7); BASOPHIL # 0.1 TH/MM3 (0-0.2); BASOPHIL % 0.7 % (0.0-2.0); EOSINOPHIL # 0.4 TH/MM3 (0-0.4); EOSINOPHIL % 3.2 % (0.0-4.0); HEMATOCRIT 31.4 % (35.0-46.0); HEMOGLOBIN 10.5 GM/DL (11.6-15.3); LYMPH % 34.4 % (9.0-44.0); LYMPHOCYTE # 4.2 TH/MM3 (1.0-4.8); MEAN CELL VOLUME 96.8 FL (80.0-100.0); MEAN CORPUSCULAR HEMOGLOBIN 32.5 PG (27.0-34.0); MEAN CORPUSCULAR HGB CONC 33.6 % (32.0-36.0); MEAN PLATELET VOLUME 8.2 FL (7.0-11.0); NEUT % 53.7 % (16.0-70.0); PLATELET COUNT 406 TH/MM3 (150-450); RED BLOOD COUNT 3.24 MIL/MM3 (4.00-5.30); RED CELL DISTRIBUTION WIDTH 14.4 % (11.6-17.2); WHITE BLOOD COUNT 12.1 TH/MM3 (4.0-11.0)
[2017-06-09 08:04] LABS: ALBUMIN 2.3 GM/DL (3.4-5.0); ALT (GPT) 130 U/L (10-53); AST (GOT) 91 U/L (15-37); BICARBONATE 27.7 MEQ/L (21.0-32.0); BLOOD UREA NITROGEN 6 MG/DL (7-18); CALCIUM 8.7 MG/DL (8.5-10.1); CHLORIDE 107 MEQ/L (98-107); CREATININE 0.87 MG/DL (0.50-1.00); GLOMERULAR FILTRATION RATE 67 ML/MIN (>89); GLUCOSE,RANDOM 77 MG/DL (74-106); SODIUM (NA) 142 MEQ/L (136-145)
[2017-06-09 08:06] LABS: ALKALINE PHOSPHATASE 417 U/L (45-117); TOTAL BILIRUBIN ADULT 1.8 MG/DL (0.2-1.0); TOTAL PROTEIN 6.5 GM/DL (6.4-8.2)
[2017-06-09] MEDS: ARIPiprazole 5 MG TAB PO SCH (08:46)
[2017-06-09] MEDS: MORPHINE SULFATE 2 MG/ML INJ IV PUSH PRN (08:46)
[2017-06-09] MEDS: LISINOPRIL 10 MG TAB PO SCH (08:46)
[2017-06-09] MEDS: FLUoxetine HCL 20 MG CAP PO SCH (08:46)
[2017-06-09] MEDS: guaiFENesin E.R. 600 MG TAB PO SCH ×2 (08:46→21:22)
[2017-06-09] MEDS: SODIUM CHLORIDE 0.9% FLUSH 10 ML FLUSH IV FLUSH SCH ×2 (08:51→21:23)
--- NOTE | 2017-06-09 10:13 | HHI.FF ---
Face to Face Verification Diagnosis: (1) Acute cholecystitis (2) Gallstones (3) Elevated liver enzymes Home Health Nursing Order: Wound care and dressing changes Instructions: Routine MAXIMO drain care Please have liver enzymes drawn on MondayJun 14....please CC results to Dr. Moon's office I have seen patient Diane Pickett on 06/09/17. My clinical findings support the need for the requested home health care services because: Limited ability to care for self High risk of falls I certify that my clinical findings support that this patient is homebound because: Post-op weakness Sharon Sosa/Bench Manager ARNP Jun 09, 2017 10:13
[2017-06-09] MEDS ORDERED: LISI10TA3 PO (10:39)
[2017-06-09] MEDS ORDERED: DOCU8.6T PO (10:39)
[2017-06-09] MEDS ORDERED: OXYC1TAB13 PO (10:39)
[2017-06-09] MEDS ORDERED: FLUO20CA12 PO (10:39)
--- NOTE | 2017-06-09 11:34 | HHI.PR ---
Subjective Subjective Notes Resting in bed No issues Hungry Objective Vitals/I&O Vital Signs Date Time Temp Pulse Resp B/P (MAP) Pulse Ox O2 Delivery O2 Flow Rate FiO2 06/09/17 08:00 98.1 66 16 146/75 (98) 96 06/08/17 23:37 Room Air 06/08/17 19:19 21 06/08/17 00:15 2.00 Labs Laboratory Tests Test 06/09/17 05:33 White Blood Count 12.1 Red Blood Count 3.24 Hemoglobin 10.5 Hematocrit 31.4 Mean Corpuscular Volume 96.8 Mean Corpuscular Hemoglobin 32.5 Mean Corpuscular Hemoglobin Concent 33.6 Red Cell Distribution Width 14.4 Platelet Count 406 Mean Platelet Volume 8.2 Neutrophils (%) (Auto) 53.7 Lymphocytes (%) (Auto) 34.4 Monocytes (%) (Auto) 8.0 Eosinophils (%) (Auto) 3.2 Basophils (%) (Auto) 0.7 Neutrophils # (Auto) 6.5 Lymphocytes # (Auto) 4.2 Monocytes # (Auto) 1.0 Eosinophils # (Auto) 0.4 Basophils # (Auto) 0.1 CBC Comment DIFF FINAL Differential Comment Blood Urea Nitrogen 6 Creatinine 0.87 Random Glucose 77 Total Protein 6.5 Albumin 2.3 Calcium Level 8.7 Alkaline Phosphatase 417 Aspartate Amino Transf (AST/SGOT) 91 Alanine Aminotransferase (ALT/SGPT) 130 Total Bilirubin 1.8 Sodium Level 142 Potassium Level 3.1 Chloride Level 107 Carbon Dioxide Level 27.7 Anion Gap 7 Estimat Glomerular Filtration Rate 67 Date/Time Source Procedure Growth Status 06/03/17 16:30 Blood Peripheral Aerobic Blood Culture - Final NO GROWTH IN 5 DAYS Complete 06/03/17 16:30 Blood Peripheral Anaerobic Blood Culture - Final NO GROWTH IN 5 DAYS Complete Cardiovascular: Regular Lungs: Clear Abdomen: Non-distended, Other (MAXIMO with SS drainage in bulb; lap sites c/d/i with skin glue in place ), Post-op tenderness Extremities: No edema A/P Problem List: (1) Elevated liver enzymes ICD Codes: R74.8 - Abnormal levels of other serum enzymes Status: Acute (2) Total bilirubin, elevated ICD Codes: R17 - Unspecified jaundice Status: Acute (3) Gallstones ICD Codes: K80.20 - Calculus of gallbladder without cholecystitis without obstruction Status: Acute (4) Abnormal findings on imaging of biliary tract ICD Codes: R93.2 - Abnormal findings on diagnostic imaging of liver and biliary tract Status: Acute (5) Acute cholecystitis ICD Codes: K81.0 - Acute cholecystitis Status: Acute Assessment and Plan 56 year old female with acute cholecystitis; POD2 lap hermes with drain placement -Regular diet -Liver enzymes now trending down -Plan to DC today with [facility] for drain management; CMP needs to be done Monday -Consult CM for drain care and labs -Follow up with Dr. Moon on Jun 15 at 3:10PM -Discussed with Dr. Javier and Dr. Osorio - sandee for DC Attending Statement The exam, history, and the medical decision-making described in the above note were completed with the assistance of the mid-level provider. I reviewed and agree with the findings presented. I attest that I had a [id number] encounter with the patient on the same day, and personally performed and documented my assessment and findings in the medical record. abdominal exam: stable postop tenderness, MAXIMO clear ok for Dc home for outpatient fu and recheck labs Sharon Sosa/First Naeem CLAROS Jun 09, 2017 11:34 Steve Moon MD Jun 13, 2017 10:53
[2017-06-09] MEDS ORDERED: BISACODYL 10 MG SUPP RECTAL ONE (12:00)
--- NOTE | 2017-06-09 12:39 | HHI.FPPN ---
Subjective Remarks STill with RUQ pain, mainly around drain site however reported as deep. No BM for past several days but is passing gas. She is tolerated clear liquid diet and wants a regular diet this am. (Kyle Osorio MD, R3) Objective Vitals Vital Signs Date Time Temp Pulse Resp B/P (MAP) Pulse Ox O2 Delivery O2 Flow Rate FiO2 06/09/17 12:20 82 06/09/17 12:00 98.6 71 16 145/85 (105) 95 06/09/17 08:00 98.1 66 16 146/75 (98) 96 06/09/17 07:47 62 06/09/17 07:32 18 06/09/17 05:38 98.3 69 18 115/57 (76) 97 06/09/17 03:46 63 06/08/17 23:43 62 06/08/17 23:37 Room Air 06/08/17 23:15 96.4 60 18 121/68 (85) 98 06/08/17 20:48 97.0 64 17 179/64 (102) 94 06/08/17 19:45 63 06/08/17 19:22 98.1 59 18 147/72 (97) 96 06/08/17 19:19 98 21 06/08/17 16:40 97.7 57 17 147/88 (107) 96 06/08/17 16:00 80 06/08/17 15:45 96.5 61 17 168/81 (110) 95 I/O 06/08/17 06/08/17 06/08/17 06/09/17 06/09/17 06/09/17 07:00 15:00 23:00 07:00 15:00 23:00 Intake Total 530 ml 0 ml 50 ml 50 ml Output Total 20 ml 40 ml 10 ml Balance 510 ml 0 ml 10 ml 40 ml Intake Oral 480 ml 0 ml 0 ml 0 ml IV Total 50 ml 50 ml 50 ml Output Drainage Total 20 ml 40 ml 10 ml # Voids 2 4 1 1 # Bowel Movements 0 0 0 0 (Kyle Osorio MD, R3) Result Diagram: 06/09/17 0533 06/09/17 0533 Imaging Last 72 hours Impressions Abdomen/Pelvis CT 06/08/17 0000 Signed Impressions: Service Date/Time: Thursday, June 08, 2017 18:05 - CONCLUSION: 1. Postoperative cholecystectomy with drain in the right upper quadrant in the gallbladder bed. There is still some loculated air and trace fluid in the gallbladder bed as well as inflammatory or edematous changes in right upper quadrant fat. Trace free air is also present around the liver. No drainable fluid collections present. No biliary ductal dilatation. Royce Haynes MD Objective Remarks GENERAL: Well-nourished, well-developed patient. No acute distress. SKIN: Warm and dry. No rash. EYES: No scleral icterus. No injection or drainage. PERRLA. EOMI. HENT: Normocephalic. Atraumatic. MMM. NECK: No visible JVD or lymphadenopathy. CARDIOVASCULAR: Warm and well perfused. RESPIRATORY: Normal respiratory effort. Left base crackles. GASTROINTESTINAL: Abdomen nondistended. 3, 1 cm linear erythematous port site that are CDI. Tender to palpation of the right upper quadrant. No rebound or guarding. Bianchi's sign positive. BS present. MUSCULOSKELETAL: Strength grossly WNL. BACK: Without obvious deformity. NEURO/PSYCH: Afocal. Awake, alert, and oriented x3. GI exam as above, however would clarify there is mild voluntary guarding. 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 Cholecystectomy on 06/06/2017. Tolerating surgery well. Discharge Planning Likely within the next 24 hours. Pending ERCP findings scan, pain control, and diet. (Kyle Osorio MD, R3) Attending Attestation Patient seen and examined with Dr Osorio. Discussed case further with Dr. Moon and [place]. At this time, NO ERCP (see GI note), anticipate discharge home later today provided patient has bowel movement, repeat LFTs in 5 days, follow-up with surgeon 1 week. Patient requests home health to assist with MAXIMO drain management. Additionally, decrease fluoxetine to half dose (20 mg), continue other psychoactive meds, ultimately may benefit from downward titration of abilify and / or deseryl to minimize risk of drug interactions and ADEs. Discussed minimizing acetaminophen until liver enzymes clarified , short term non-acetaminophen based opioid provided for prn use (3day supply). Anticipate discharge after BM, patient with chronic constipation managed with Lineclotide as outpt. Agree with plan of care as discussed with me and documented in the resident note. (Farideh Javier MD) Problem List: (1) Acute cholecystitis ICD Codes: K81.0 - Acute cholecystitis Status: Acute Plan: Cholecystectomy 06/06/2017. Increasing Bilirubin post operatively. Decreased today from 2.8 --> 1.8. Spoke with Dr. Harrington (GI) who recommended against ERCP. Can follow bili as an outpatient, and follow up for ERCP if indicated once the acute inflammation has resolved. Will have CMP as outpatient on Monday06/14/2017, and an appointment with his surgeon on 06/15/2017 with removal of her drain at that time. Transition to roxicodone 5 mg TID as needed for pain. Hep lock IV normal saline at 100 ML's per hour. Zosyn 3.375 mg every 6 hours IV. D/C upon discharge. Monitor clinical exam. (2) Elevated liver enzymes ICD Codes: R74.8 - Abnormal levels of other serum enzymes Status: Acute Plan: Mild elevated of AST/ALT/Alk Phosph. Should resolve since obstruction gallbladder and inflammation have resolved. Careful with Tylenol dosing. Reduced Prozac from 40 to 20 mg daily as this is metabolized by the liver and has a contraindication with co-use of Abilify. Monitor mood as an outpatient after abdomen / liver recovers. Adjust medications accordingly at that time. (3) Hypertension ICD Codes: I10 - Essential (primary) hypertension Plan: HTN resolved with cholecystomy, pain control, and lisinopril. (4) Depression ICD Codes: F32.9 - Major depressive disorder, single episode, unspecified Status: Acute Plan: Denies any mood symptoms currently. Continue with Prozac 40 mg daily. Continue Abilify 5 mg daily. Add Ativan 0.5 mg q 4 as needed for anxiety. (5) Peptic ulcer disease ICD Codes: K27.9 - Peptic ulcer, site unspecified, unspecified as acute or chronic, without hemorrhage or perforation Status: Chronic Plan: Resume PPI, follow H&H. (6) Nutrition, metabolism, and development symptoms ICD Codes: R63.8 - Other symptoms and signs concerning food and fluid intake Plan: Nutrition: advance at discretion of surgery. DVT ppx: SCDs IVF: PO GI ppx: PPI [address] Javier. (Kyle Osorio MD, R3) Kyle Osorio MD, R3 Jun 09, 2017 12:39 Farideh Javier MD Jun 09, 2017 14:16
--- NOTE | 2017-06-09 12:39 | HHI.DS ---
Discharge Summary Admission Date Jun 03, 2017 at 16:27 Admitting Diagnosis (1) Acute cholecystitis Plan: Cholecystectomy 06/06/2017. Increasing Bilirubin post operatively. Decreased today from 2.8 --> 1.8. Spoke with Dr. Harrington (GI) who recommended against ERCP. Can follow bili as an outpatient, and follow up for ERCP if indicated once the acute inflammation has resolved. Will have CMP as outpatient on Monday06/14/2017, and an appointment with his surgeon on 06/15/2017 with removal of her drain at that time. Transition to roxicodone 5 mg TID as needed for pain. Hep lock IV normal saline at 100 ML's per hour. Zosyn 3.375 mg every 6 hours IV. D/C upon discharge. Monitor clinical exam. ICD Codes: K81.0 - Acute cholecystitis Status: Acute (2) Elevated liver enzymes Plan: Mild elevated of AST/ALT/Alk Phosph. Should resolve since obstruction gallbladder and inflammation have resolved. Careful with Tylenol dosing. Reduced Prozac from 40 to 20 mg daily as this is metabolized by the liver and has a contraindication with co-use of Abilify. Monitor mood as an outpatient after abdomen / liver recovers. Adjust medications accordingly at that time. ICD Codes: R74.8 - Abnormal levels of other serum enzymes Status: Acute (3) Hypertension Plan: HTN resolved with cholecystomy, pain control, and lisinopril. ICD Codes: I10 - Essential (primary) hypertension (4) Depression Plan: Denies any mood symptoms currently. Continue with Prozac 40 mg daily. Continue Abilify 5 mg daily. Add Ativan 0.5 mg q 4 as needed for anxiety. ICD Codes: F32.9 - Major depressive disorder, single episode, unspecified Status: Acute (5) Peptic ulcer disease Plan: Resume PPI, follow H&H. ICD Codes: K27.9 - Peptic ulcer, site unspecified, unspecified as acute or chronic, without hemorrhage or perforation Status: Chronic (6) Nutrition, metabolism, and development symptoms Plan: Nutrition: advance at discretion of surgery. DVT ppx: SCDs IVF: PO GI ppx: PPI [address] Javier. ICD Codes: R63.8 - Other symptoms and signs concerning food and fluid intake CBC/BMP: 06/09/17 0533 06/09/17 0533 Significant Findings Laboratory Tests Test 06/07/17 09:17 06/08/17 03:46 06/08/17 05:53 06/09/17 05:33 White Blood Count 18.4 TH/MM3 (4.0-11.0) 14.5 TH/MM3 (4.0-11.0) 12.1 TH/MM3 (4.0-11.0) Red Blood Count 3.49 MIL/MM3 (4.00-5.30) 3.27 MIL/MM3 (4.00-5.30) 3.24 MIL/MM3 (4.00-5.30) Hemoglobin 11.3 GM/DL (11.6-15.3) 10.7 GM/DL (11.6-15.3) 10.5 GM/DL (11.6-15.3) Hematocrit 33.9 % (35.0-46.0) 31.4 % (35.0-46.0) 31.4 % (35.0-46.0) Neutrophils (%) (Auto) 74.4 % (16.0-70.0) Monocytes (%) (Auto) 8.2 % (0.0-8.0) 9.9 % (0.0-8.0) Neutrophils # (Auto) 13.7 TH/MM3 (1.8-7.7) 10.0 TH/MM3 (1.8-7.7) Monocytes # (Auto) 1.5 TH/MM3 (0-0.9) 1.4 TH/MM3 (0-0.9) 1.0 TH/MM3 (0-0.9) Creatinine 1.08 MG/DL (0.50-1.00) 1.09 MG/DL (0.50-1.00) Random Glucose 147 MG/DL (74-106) 137 MG/DL (74-106) Total Protein 6.3 GM/DL (6.4-8.2) Albumin 2.4 GM/DL (3.4-5.0) 2.3 GM/DL (3.4-5.0) 2.3 GM/DL (3.4-5.0) Alkaline Phosphatase 268 U/L (45-117) 418 U/L (45-117) 417 U/L (45-117) Aspartate Amino Transf (AST/SGOT) 51 U/L (15-37) 79 U/L (15-37) 91 U/L (15-37) Alanine Aminotransferase (ALT/SGPT) 106 U/L (10-53) 112 U/L (10-53) 130 U/L (10-53) Total Bilirubin 1.5 MG/DL (0.2-1.0) 2.8 MG/DL (0.2-1.0) 1.8 MG/DL (0.2-1.0) Estimat Glomerular Filtration Rate 52 ML/MIN (>89) 52 ML/MIN (>89) 67 ML/MIN (>89) Blood Urea Nitrogen 6 MG/DL (7-18) Potassium Level 3.1 MEQ/L (3.5-5.1) PE at Discharge GENERAL: Well-nourished, well-developed patient. No acute distress. SKIN: Warm and dry. No rash. EYES: No scleral icterus. No injection or drainage. PERRLA. EOMI. HENT: Normocephalic. Atraumatic. MMM. NECK: No visible JVD or lymphadenopathy. CARDIOVASCULAR: Warm and well perfused. RESPIRATORY: Normal respiratory effort. Left base crackles. GASTROINTESTINAL: Abdomen nondistended. 3, 1 cm linear erythematous port site that are CDI. Tender to palpation of the right upper quadrant. No rebound or guarding. Bianchi's sign positive. BS present. MUSCULOSKELETAL: Strength grossly WNL. BACK: Without obvious deformity. NEURO/PSYCH: Afocal. Awake, alert, and oriented x3. GI exam as above, however would clarify there is mild voluntary guarding. Tenderness most marked RUQ Pt Condition on Discharge: Good Discharge Disposition: Discharge Home Discharge Instructions DIET: Follow Instructions for: As Tolerated, No Restrictions Activities you can perform: Regular-No Restrictions Kyle Osorio MD, R3 Jun 09, 2017 12:39
[2017-06-09] MEDS: LACTULOSE SYRUP 20 GM/30 ML CUP PO PRN (14:59)
[2017-06-09] MEDS: NICOTINE 4 MG/GUM CHEW PRN (14:59)
[2017-06-09] MEDS: SENNOSIDES 8.6 MG TAB PO PRN (14:59)
[2017-06-09] MEDS: SODIUM CHLORIDE 0.9% FLUSH 10 ML FLUSH IV FLUSH PRN (15:02)
[2017-06-09] MEDS: ONDANSETRON HCL 4 MG/2 ML VIAL IVP PRN (16:57)
[2017-06-09] MEDS: BISACODYL 10 MG SUPP RECTAL SCH (18:43)
[2017-06-09] MEDS: traZODone HCL 100 MG TAB PO PRN (22:17)
[2017-06-10] VITALS (8 sets, daily range): BP systolic 121–152; BP diastolic 69–88; PULSE 61–75; RESP 17–20; TEMP 97.7–99.1; O2SAT 94–99
[2017-06-10] MEDS: RESP: ALBUTEROL 2.5 MG/IPRATROPIUM 0.5 MG NEB (SCH) INH ×7 (01:04→23:48)
[2017-06-10] MEDS: PIPERACIL-TAZO 3.375 GM PREMIX 50 ML IV SCH ×4 (03:19→21:09)
[2017-06-10] MEDS: ACETAMINOPHEN/HYDROcodone 325 MG/10 MG TAB PO PRN (03:31)
[2017-06-10] MEDS: ONDANSETRON HCL 4 MG/2 ML VIAL IVP PRN ×2 (04:16→13:05)
[2017-06-10] MEDS: LACTULOSE SYRUP 20 GM/30 ML CUP PO PRN (04:18)
[2017-06-10] MEDS: SENNOSIDES 8.6 MG TAB PO PRN (04:18)
[2017-06-10 06:25] LABS: HEMATOCRIT 34.3 % (35.0-46.0); HEMOGLOBIN 11.2 GM/DL (11.6-15.3); MEAN CELL VOLUME 97.6 FL (80.0-100.0); MEAN CORPUSCULAR HGB CONC 32.8 % (32.0-36.0); MEAN PLATELET VOLUME 8.6 FL (7.0-11.0); PLATELET COUNT 404 TH/MM3 (150-450); RED BLOOD COUNT 3.51 MIL/MM3 (4.00-5.30); RED CELL DISTRIBUTION WIDTH 14.5 % (11.6-17.2); WHITE BLOOD COUNT 14.8 TH/MM3 (4.0-11.0)
[2017-06-10 06:34] LABS: ALBUMIN 2.4 GM/DL (3.4-5.0); BICARBONATE 27.9 MEQ/L (21.0-32.0); BLOOD UREA NITROGEN 6 MG/DL (7-18); CHLORIDE 105 MEQ/L (98-107); GLUCOSE,RANDOM 87 MG/DL (74-106); SODIUM (NA) 141 MEQ/L (136-145)
[2017-06-10 06:39] LABS: ALKALINE PHOSPHATASE 548 U/L (45-117); ALT (GPT) 198 U/L (10-53); AST (GOT) 156 U/L (15-37); CREATININE 0.92 MG/DL (0.50-1.00); GLOMERULAR FILTRATION RATE 63 ML/MIN (>89); TOTAL BILIRUBIN ADULT 1.7 MG/DL (0.2-1.0); TOTAL PROTEIN 6.7 GM/DL (6.4-8.2)
--- NOTE | 2017-06-10 07:11 | HHI.FPPN ---
Subjective Remarks Patient had "rabit pebble" for a BM yesterday. Still with abdominal bloatign and RUQ pain. The pain is a 7-8/10. When she gets her [place], it goes down to a 6-7/10. She is worried to go home with the pain. She was nauseated last night, however this morning she tolerated her breakfast. She denies new fevers or chills. She tells me that she was walking the halls yesterday. Feels ready to go home "if I take it very easy." (Kyle Osorio MD, R3) Objective Vitals Vital Signs Date Time Temp Pulse Resp B/P (MAP) Pulse Ox O2 Delivery O2 Flow Rate FiO2 06/10/17 04:00 98.3 65 20 145/80 (101) 95 06/10/17 00:00 98.2 61 20 130/79 (96) 94 06/10/17 00:00 68 06/09/17 21:42 Room Air 06/09/17 20:33 98 21 06/09/17 20:07 73 06/09/17 20:00 97.6 73 20 134/99 (111) 96 06/09/17 18:05 63 06/09/17 17:43 62 06/09/17 17:03 77 06/09/17 16:46 95 06/09/17 16:00 98.9 70 17 141/64 (89) 98 06/09/17 15:14 70 06/09/17 13:17 70 06/09/17 12:20 82 06/09/17 12:00 98.6 71 16 145/85 (105) 95 06/09/17 08:00 98.1 66 16 146/75 (98) 96 06/09/17 07:47 62 06/09/17 07:32 18 I/O 06/09/17 06/09/17 06/09/17 06/10/17 06/10/17 06/10/17 07:00 15:00 23:00 07:00 15:00 23:00 Intake Total 50 ml 240 ml 2046 ml 240 ml Output Total 10 ml 10 ml 20 ml 5 ml Balance 40 ml 230 ml 2026 ml 235 ml Intake Oral 0 ml 240 ml 240 ml IV Total 50 ml 2046 ml Drainage Total 10 ml 10 ml 20 ml 5 ml # Voids 1 3 2 2 # Bowel Movements 0 0 (Kyle Osorio MD, R3) Result Diagram: 06/10/17 0430 06/10/17 0430 Imaging Last 72 hours Impressions Abdomen/Pelvis CT 06/08/17 0000 Signed Impressions: Service Date/Time: May 18:05 - CONCLUSION: 1. Postoperative cholecystectomy with drain in the right upper quadrant in the gallbladder bed. There is still some loculated air and trace fluid in the gallbladder bed as well as inflammatory or edematous changes in right upper quadrant fat. Trace free air is also present around the liver. No drainable fluid collections present. No biliary ductal dilatation. Royce Haynes MD Objective Remarks GENERAL: Well-nourished, well-developed patient. No acute distress. SKIN: Warm and dry. No rash. EYES: No scleral icterus. No injection or drainage. PERRLA. EOMI. HENT: Normocephalic. Atraumatic. MMM. NECK: No visible JVD or lymphadenopathy. CARDIOVASCULAR: Warm and well perfused. RESPIRATORY: Normal respiratory effort. Left base crackles. GASTROINTESTINAL: Abdomen nondistended. 3, 1 cm linear erythematous port site that are CDI. Tender to palpation of the right upper quadrant. No rebound or guarding. Bianchi's sign positive. BS present. MUSCULOSKELETAL: Strength grossly WNL. BACK: Without obvious deformity. NEURO/PSYCH: Afocal. Awake, alert, and oriented x3. GI exam as above, however would clarify there is mild voluntary guarding. 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 Cholecystectomy on 06/06/2017. Discharge Planning 06/10/17, with follow up with gen surg in 1 week. (Kyle Osorio MD, R3) Attending Attestation Patient seen and examined. Case reviewed and discussed with Dr Osorio. Agree with plan of care as discussed with me and documented in the resident note. (Farideh Javier MD) Problem List: (1) Acute cholecystitis ICD Codes: K81.0 - Acute cholecystitis Status: Acute Plan: Cholecystectomy 06/06/2017. Increasing Bilirubin post operatively. Decreased today from 2.8 --> 1.8 --> 1.7. Spoke with Dr. Harrington (GI) who recommended against ERCP. Can follow bili as an outpatient, and follow up for ERCP if indicated once the acute inflammation has resolved. Will have CMP as outpatient on Monday06/14/2017, and an appointment with his surgeon on 06/15/2017 with removal of her drain at that time. Transition to roxicodone 5 mg TID as needed for pain. Hep lock IV normal saline at 100 ML's per hour. Zosyn 3.375 mg every 6 hours IV. D/C upon discharge. Monitor clinical exam. (2) LFT elevation ICD Codes: R79.89 - Other specified abnormal findings of blood chemistry Plan: AST/ALT gradually increasing. AST 92 --> 156. ALT 127 --> 198. Alk Phosp 349 --> 548. Bilirubin continuing to decrease from 3.0 on admission to 1.7. Decreased Fluoxetine from 40-->20 mg daily. There was an interaction with her other medications including Abilify. Stop Tylenol. Follow up as outpatient. (3) Elevated liver enzymes ICD Codes: R74.8 - Abnormal levels of other serum enzymes Status: Acute Plan: Mild elevated of AST/ALT/Alk Phosph. Should resolve since obstruction in gallbladder and inflammation have resolved. Careful with Tylenol dosing. Reduced Prozac from 40 to 20 mg daily as this is metabolized by the liver and has a contraindication with co-use of Abilify. Monitor mood as an outpatient after abdomen / liver recovers. Adjust medications accordingly at that time. (4) Hypertension ICD Codes: I10 - Essential (primary) hypertension Plan: HTN resolved with cholecystomy, pain control, and lisinopril. (5) Depression ICD Codes: F32.9 - Major depressive disorder, single episode, unspecified Status: Acute Plan: Denies any mood symptoms currently. Continue with Prozac 40 mg daily. Continue Abilify 5 mg daily. Add Ativan 0.5 mg q 4 as needed for anxiety. (6) Peptic ulcer disease ICD Codes: K27.9 - Peptic ulcer, site unspecified, unspecified as acute or chronic, without hemorrhage or perforation Status: Chronic Plan: Resume PPI, follow H&H. (7) Nutrition, metabolism, and development symptoms ICD Codes: R63.8 - Other symptoms and signs concerning food and fluid intake Plan: Nutrition: advance at discretion of surgery. DVT ppx: SCDs IVF: PO GI ppx: PPI [address] Javier. (Kyle Osorio MD, R3) Kyle Osorio MD, R3 Jun 10, 2017 07:11 Farideh Javier MD Jun 10, 2017 17:21
[2017-06-10] MEDS ORDERED: POTASSIUM CHLORIDE 10 MEQ CONTROLLED RELEASE TAB PO ONE (07:15)
[2017-06-10] MEDS: FLUoxetine HCL 20 MG CAP PO SCH ×2 (07:42→09:00)
[2017-06-10] MEDS: guaiFENesin E.R. 600 MG TAB PO SCH ×2 (07:42→21:09)
[2017-06-10] MEDS: ARIPiprazole 5 MG TAB PO SCH (07:42)
[2017-06-10] MEDS: LISINOPRIL 10 MG TAB PO SCH (07:43)
[2017-06-10] MEDS: BISACODYL 10 MG SUPP RECTAL SCH (07:43)
[2017-06-10] MEDS: SODIUM CHLORIDE 0.9% FLUSH 10 ML FLUSH IV FLUSH SCH ×2 (09:00→21:09)
[2017-06-10] MEDS: NICOTINE 4 MG/GUM CHEW PRN (11:34)
--- NOTE | 2017-06-10 12:20 | HHI.GIFU ---
Subjective Remarks Pt resting in bed, eating sandwich. Still has pain but says it is better than before. no n/v. (Andree Main) Objective Vitals I&O Vital Signs Date Time Temp Pulse Resp B/P (MAP) Pulse Ox O2 Delivery O2 Flow Rate FiO2 06/10/17 11:36 99 21 06/10/17 08:00 98.9 73 18 141/88 (105) 97 06/10/17 04:00 98.3 65 20 145/80 (101) 95 06/10/17 00:00 98.2 61 20 130/79 (96) 94 06/10/17 00:00 68 06/09/17 21:42 Room Air 06/09/17 20:33 98 21 06/09/17 20:07 73 06/09/17 20:00 97.6 73 20 134/99 (111) 96 06/09/17 18:05 63 06/09/17 17:43 62 06/09/17 17:03 77 06/09/17 16:46 95 06/09/17 16:00 98.9 70 17 141/64 (89) 98 06/09/17 15:14 70 06/09/17 13:17 70 06/09/17 12:20 82 I/O 06/09/17 06/09/17 06/09/17 06/10/17 06/10/17 06/10/17 07:00 15:00 23:00 07:00 15:00 23:00 Intake Total 50 ml 240 ml 2046 ml 240 ml Output Total 10 ml 10 ml 20 ml 5 ml Balance 40 ml 230 ml 2026 ml 235 ml Intake Oral 0 ml 240 ml 240 ml IV Total 50 ml 2046 ml Drainage Total 10 ml 10 ml 20 ml 5 ml # Voids 1 3 2 2 # Bowel Movements 0 0 Laboratory Laboratory Tests Test 06/10/17 04:30 White Blood Count 14.8 Red Blood Count 3.51 Hemoglobin 11.2 Hematocrit 34.3 Mean Corpuscular Volume 97.6 Mean Corpuscular Hemoglobin 32.0 Mean Corpuscular Hemoglobin Concent 32.8 Red Cell Distribution Width 14.5 Platelet Count 404 Mean Platelet Volume 8.6 Blood Urea Nitrogen 6 Creatinine 0.92 Random Glucose 87 Total Protein 6.7 Albumin 2.4 Calcium Level 9.0 Alkaline Phosphatase 548 Aspartate Amino Transf (AST/SGOT) 156 Alanine Aminotransferase (ALT/SGPT) 198 Total Bilirubin 1.7 Sodium Level 141 Potassium Level 3.2 Chloride Level 105 Carbon Dioxide Level 27.9 Anion Gap 8 Estimat Glomerular Filtration Rate 63 Date/Time Source Procedure Growth Status 06/03/17 16:30 Blood Peripheral Aerobic Blood Culture - Final NO GROWTH IN 5 DAYS Complete 06/03/17 16:30 Blood Peripheral Anaerobic Blood Culture - Final NO GROWTH IN 5 DAYS Complete Imaging Last Impressions Abdomen/Pelvis CT 06/08/17 0000 Signed Impressions: Service Date/Time: May 18:05 - CONCLUSION: 1. Postoperative cholecystectomy with drain in the right upper quadrant in the gallbladder bed. There is still some loculated air and trace fluid in the gallbladder bed as well as inflammatory or edematous changes in right upper quadrant fat. Trace free air is also present around the liver. No drainable fluid collections present. No biliary ductal dilatation. Royce Haynes MD Chest X-Ray 06/03/17 1321 Signed Impressions: Service Date/Time: Saturday, June 03, 2017 14:17 - CONCLUSION: No acute disease. No significant change has occurred. Lito Burnett MD Gall Bladder Ultrasound 06/03/17 0000 Signed Impressions: Service Date/Time: Saturday, June 03, 2017 15:08 - CONCLUSION: Sludge and stones in the gallbladder with thickened wall consistent with cholecystitis. Otherwise negative exam Lito Burnett MD Cholangiopancreatography MRI 06/03/17 0000 Signed Impressions: Service Date/Time: Saturday, June 03, 2017 18:21 - CONCLUSION: 1. Multiple small gallstones in the fundus and layering in the lumen. There is also evidence of layering sludge within the gallbladder lumen. 2. Normal dimension common hepatic duct without filling defects. Robby Asif MD Physical Exam HEENT: PERRL; normocephalic; atraumatic; no jaundice. CHEST: CTA CARDIAC: RRR ABDOMEN: Soft,mildly distended, epigastric TTP; no hepatosplenomegaly; bowel sounds are present in all four quadrants. EXTREMITIES: No clubbing, cyanosis, or edema. SKIN: Normal; no rash; no jaundice. PRODUCTION SANITIZER: No focal deficits; alert and oriented times three. (Andree Main) Assessment and Plan Plan Assessment: - Epigastric and RUQ pain with transaminitis and elevated bilirubin. US gallbladder (06/03) --> Sludge and stones in the gallbladder with thickened wall consistent with cholecystitis. Otherwise negative exam. GS evaluated for possible acute cholecystitis given symptoms, leukocytosis. They ordered MRCP to rule out choledocholithiasis --> Multiple small gallstones in the fundus and layering in the lumen. there is also evidence of layering sludge within the gallbladder lumen. Normal dimension common hepatic duct without filling defects. Last EGD approx a year ago, she is unsure of findings - Transaminitis, yesterday labs as follows: AST-102 ALT-101 T bili-3 Alk phos- 299. No repeat labs from today to evaluate trend. - Leukocytosis- Zosyn 06/05/17 LFts remain elevated. hep panel pending. ?lap hermes still with epigastric discomfort, n/v somewaht imiproved. 06/08/17 - now s/p lap hermes, finding acute gangrenous cholecystitis, and has persistently elevated LFTs and persistent abd pain, never improved admits n/v as well. GI reconsulted. 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 06/10/17 Tbil trending down. other LFTs trending up, ?infectious. on zosyn. CT abd noted, no CBD dilatation. GS has cleared for d/c with rck CMP prior to GS follow up. Plan: - heart healthy diet - continue abx - monitor labs - supportive care Pt has been seen and examined by myself and and myself and this note is written on her behalf (Andree Main) Physician Comments seen, examined agree with above hida scan in am liver work-up if hida negative and lfts increasing we will repeat mrcp to determine if she will need ercp /stent (Brittani Adams MD) Andree Main Jun 10, 2017 12:20 Brittani Adams MD Jun 10, 2017 17:51
--- NOTE | 2017-06-10 14:02 | HHI.PR ---
Subjective Subjective Notes pt feeling better, no bm, labs trending back up Objective Vitals/I&O Vital Signs Date Time Temp Pulse Resp B/P (MAP) Pulse Ox O2 Delivery O2 Flow Rate FiO2 06/10/17 11:36 99 21 06/10/17 08:00 98.9 73 18 141/88 (105) 06/09/17 21:42 Room Air 06/08/17 00:15 2.00 Labs Laboratory Tests Test 06/10/17 04:30 White Blood Count 14.8 Red Blood Count 3.51 Hemoglobin 11.2 Hematocrit 34.3 Mean Corpuscular Volume 97.6 Mean Corpuscular Hemoglobin 32.0 Mean Corpuscular Hemoglobin Concent 32.8 Red Cell Distribution Width 14.5 Platelet Count 404 Mean Platelet Volume 8.6 Blood Urea Nitrogen 6 Creatinine 0.92 Random Glucose 87 Total Protein 6.7 Albumin 2.4 Calcium Level 9.0 Alkaline Phosphatase 548 Aspartate Amino Transf (AST/SGOT) 156 Alanine Aminotransferase (ALT/SGPT) 198 Total Bilirubin 1.7 Sodium Level 141 Potassium Level 3.2 Chloride Level 105 Carbon Dioxide Level 27.9 Anion Gap 8 Estimat Glomerular Filtration Rate 63 Date/Time Source Procedure Growth Status 06/03/17 16:30 Blood Peripheral Aerobic Blood Culture - Final NO GROWTH IN 5 DAYS Complete 06/03/17 16:30 Blood Peripheral Anaerobic Blood Culture - Final NO GROWTH IN 5 DAYS Complete Abdomen: Other (soft incisional tenderness, gilmer ss) A/P Problem List: (1) Elevated liver enzymes ICD Codes: R74.8 - Abnormal levels of other serum enzymes Status: Acute (2) Total bilirubin, elevated ICD Codes: R17 - Unspecified jaundice Status: Acute (3) Gallstones ICD Codes: K80.20 - Calculus of gallbladder without cholecystitis without obstruction Status: Acute (4) Abnormal findings on imaging of biliary tract ICD Codes: R93.2 - Abnormal findings on diagnostic imaging of liver and biliary tract Status: Acute (5) Acute cholecystitis ICD Codes: K81.0 - Acute cholecystitis Status: Acute Assessment and Plan 56 year old female with acute cholecystitis; POD2 lap hermes with drain placement -Regular diet -Liver enzymes trending back up - drain management; CMPand cbc recheck tomorrow -Consult CM for drain care and labs - likely dc tomorrow pending labs Dejuan Soler MD Jun 10, 2017 14:02
[2017-06-10 19:16] LABS: % SATURATION IRON PROFILE 30.1 % (20-50); GAMMA GT 602 U/L (5-55); IRON (FE) 70 MCG/DL (50-170); TOTAL IRON BINDING CAPACITY 232 MCG/DL (250-450)
[2017-06-10 19:19] LABS: FERRITIN 497 NG/ML (8-252)
--- NOTE | 2017-06-10 19:20 | HHI.FPPN ---
Addendum to progress note ADDENDUM Reason for addendum: Additonal documentation Additional information Mrs Weir is a pleasant 56 y/o female with a PMHX of bipolar/MDD, hypertension, COPD, who presented with 3-4 days of vomiting and abdominal pain. She was found to have a thickened gallbladder on US and thought to have cholecystitis. A cholecystectomy was planned. This was slightly delayed because we wanted to make sure that there were no retained stones in the common bile duct. For this reason, a MRCP was performed which showed no stones of dilation of the bile ducts. She subsequently had her laparoscopic cholecystectomy and initially tolerated the procedure well. A drain is still in place. He liver enzymes are trending up after the surgery, and she may need a repeat MRCP with possible ERCP + stent pending the findings. Her pain is being controlled with Roxicodone and she is tolerating a full liquid diet well. She is thought to possibly have a partial post surgical ileus, however had a BM on 06/09 and is passing flatus regularly. She is in stable condition. Kyle Osorio MD, R3 Jun 10, 2017 19:20
[2017-06-10] MEDS: MORPHINE SULFATE 2 MG/ML INJ IV PUSH PRN (21:10)
[2017-06-10] MEDS: traZODone HCL 100 MG TAB PO PRN (22:18)
[2017-06-11 00:46] VITALS: BP 133/62; PULSE 64; RESP 17; TEMP 98.5; O2SAT 93
[2017-06-11] MEDS: LACTULOSE SYRUP 20 GM/30 ML CUP PO PRN (02:53)
[2017-06-11] MEDS: PIPERACIL-TAZO 3.375 GM PREMIX 50 ML IV SCH ×4 (02:53→20:13)
[2017-06-11] MEDS: RESP: ALBUTEROL 2.5 MG/IPRATROPIUM 0.5 MG NEB (SCH) INH ×6 (03:42→23:23)
[2017-06-11 06:36] LABS: AUTOMATED NEUTROPHIL # 6.9 TH/MM3 (1.8-7.7); BASOPHIL # 0.1 TH/MM3 (0-0.2); BASOPHIL % 0.8 % (0.0-2.0); EOSINOPHIL # 0.4 TH/MM3 (0-0.4); EOSINOPHIL % 3.4 % (0.0-4.0); HEMATOCRIT 33.2 % (35.0-46.0); LYMPH % 29.6 % (9.0-44.0); LYMPHOCYTE # 3.5 TH/MM3 (1.0-4.8); MEAN CELL VOLUME 96.8 FL (80.0-100.0); MEAN CORPUSCULAR HEMOGLOBIN 32.1 PG (27.0-34.0); MEAN CORPUSCULAR HGB CONC 33.2 % (32.0-36.0); MEAN PLATELET VOLUME 7.7 FL (7.0-11.0); MONO % 7.3 % (0.0-8.0); MONOCYTE # 0.9 TH/MM3 (0-0.9); NEUT % 58.9 % (16.0-70.0); PLATELET COUNT 497 TH/MM3 (150-450); RED BLOOD COUNT 3.43 MIL/MM3 (4.00-5.30); WHITE BLOOD COUNT 11.7 TH/MM3 (4.0-11.0)
[2017-06-11 07:01] LABS: ALBUMIN 2.4 GM/DL (3.4-5.0); AST (GOT) 149 U/L (15-37); BLOOD UREA NITROGEN 5 MG/DL (7-18); CALCIUM 9.2 MG/DL (8.5-10.1); CHLORIDE 104 MEQ/L (98-107); GLOMERULAR FILTRATION RATE 51 ML/MIN (>89); GLUCOSE,RANDOM 111 MG/DL (74-106); SODIUM (NA) 142 MEQ/L (136-145)
[2017-06-11 07:02] LABS: ALT (GPT) 248 U/L (10-53)
[2017-06-11 07:05] LABS: ALKALINE PHOSPHATASE 546 U/L (45-117); TOTAL BILIRUBIN ADULT 1.6 MG/DL (0.2-1.0); TOTAL PROTEIN 6.6 GM/DL (6.4-8.2)
[2017-06-11 08:00] VITALS: BP 134/73; PULSE 65; RESP 18; TEMP 99; O2SAT 96
[2017-06-11] MEDS: FLUoxetine HCL 20 MG CAP PO SCH (08:21)
[2017-06-11] MEDS: BISACODYL 10 MG SUPP RECTAL SCH (08:22)
[2017-06-11] MEDS: LISINOPRIL 10 MG TAB PO SCH (08:22)
[2017-06-11] MEDS: ARIPiprazole 5 MG TAB PO SCH (08:22)
[2017-06-11] MEDS: SODIUM CHLORIDE 0.9% FLUSH 10 ML FLUSH IV FLUSH SCH ×2 (08:22→20:14)
[2017-06-11] MEDS: guaiFENesin E.R. 600 MG TAB PO SCH ×2 (08:22→20:13)
[2017-06-11 09:32] VITALS: O2SAT 98
--- NOTE | 2017-06-11 12:21 | RADRPT ---
EXAM DATE/TIME: 06/11/2017 10:05 [facility] COMPARISON: No previous studies available for comparison. INDICATIONS : Abdominal pain with nausea and vomiting. Cholecystectomy on 06/07/2017. DOSE: 4.1 mCi Tc99m Mebrofenin IV MEDICAL HISTORY : Gastroesophageal reflux disease. SURGICAL HISTORY : Cholecystectomy. Hysterectomy. ENCOUNTER: Initial ACUITY: 1 day PAIN SCALE: 4/10 LOCATION: Right upper quadrant TECHNIQUE: Following the intravenous administration of radiotracer, dynamic sequential images were performed wit h continuous acquisition. FINDINGS: The examination is abnormal demonstrating prompt uptake of radiotracer throughout the hepatic parench yma with clearance of chronic blood pool by 9 minutes. Once peak activity is obtained, activity stay s within the hepatic parenchyma and there is less than 5% washout at the end of 90 minutes. Some act ivity is seen passing into the small bowel at 56 minutes CONCLUSION: 1. Abnormal hepatic parenchymal phase with significant retention of the radiotracer within the parenc hyma. This suggests significant hepatocellular dysfunction. 2. The presence of activity in the small bowel excludes complete obstruction of the common bile rober t. 3. 3. 3. 3. Differential consideration for the retained hepatocellular activity include hep atic cellular dysfunction and partial obstruction. 4. There is insufficient bowel activity to either include or exclude a leak, but no activity is seen outside of bowel. Robby Asif MD on June 11, 2017 at 12:13 Board Certified Radiologist. This report was verified electronically.
--- NOTE | 2017-06-11 12:29 | HHI.PR ---
Subjective Subjective Notes Still painful Just back from HIDA scan Objective Vitals/I&O Vital Signs Date Time Temp Pulse Resp B/P (MAP) Pulse Ox O2 Delivery O2 Flow Rate FiO2 06/11/17 09:32 98 06/11/17 08:00 99.0 65 18 134/73 (93) 06/10/17 11:36 21 06/09/17 21:42 Room Air 06/08/17 00:15 2.00 Labs Laboratory Tests Test 06/11/17 04:30 White Blood Count 11.7 Red Blood Count 3.43 Hemoglobin 11.0 Hematocrit 33.2 Mean Corpuscular Volume 96.8 Mean Corpuscular Hemoglobin 32.1 Mean Corpuscular Hemoglobin Concent 33.2 Red Cell Distribution Width 15.0 Platelet Count 497 Mean Platelet Volume 7.7 Neutrophils (%) (Auto) 58.9 Lymphocytes (%) (Auto) 29.6 Monocytes (%) (Auto) 7.3 Eosinophils (%) (Auto) 3.4 Basophils (%) (Auto) 0.8 Neutrophils # (Auto) 6.9 Lymphocytes # (Auto) 3.5 Monocytes # (Auto) 0.9 Eosinophils # (Auto) 0.4 Basophils # (Auto) 0.1 CBC Comment DIFF FINAL Differential Comment Blood Urea Nitrogen 5 Creatinine 1.10 Random Glucose 111 Total Protein 6.6 Albumin 2.4 Calcium Level 9.2 Alkaline Phosphatase 546 Aspartate Amino Transf (AST/SGOT) 149 Alanine Aminotransferase (ALT/SGPT) 248 Total Bilirubin 1.6 Sodium Level 142 Potassium Level 3.4 Chloride Level 104 Carbon Dioxide Level 29.0 Anion Gap 9 Estimat Glomerular Filtration Rate 51 Lipase 40 Date/Time Source Procedure Growth Status 06/03/17 16:30 Blood Peripheral Aerobic Blood Culture - Final NO GROWTH IN 5 DAYS Complete 06/03/17 16:30 Blood Peripheral Anaerobic Blood Culture - Final NO GROWTH IN 5 DAYS Complete Abdomen: Non-distended, Post-op tenderness A/P Problem List: (1) Elevated liver enzymes ICD Codes: R74.8 - Abnormal levels of other serum enzymes Status: Acute (2) Total bilirubin, elevated ICD Codes: R17 - Unspecified jaundice Status: Acute (3) Gallstones ICD Codes: K80.20 - Calculus of gallbladder without cholecystitis without obstruction Status: Acute (4) Abnormal findings on imaging of biliary tract ICD Codes: R93.2 - Abnormal findings on diagnostic imaging of liver and biliary tract Status: Acute (5) Acute cholecystitis ICD Codes: K81.0 - Acute cholecystitis Status: Acute Assessment and Plan Assessment and Plan 56 year old female with acute cholecystitis; POD#3 lap hermes with drain placement -Regular diet -Liver enzymes remain elevated - drain management - May need ERCP/stent placement to manage drainage Leif Berry MD Jun 11, 2017 12:29
[2017-06-11] MEDS: NICOTINE 4 MG/GUM CHEW PRN (13:39)
[2017-06-11 16:00] VITALS: BP 95/66; PULSE 73; RESP 18; TEMP 98.1; O2SAT 98
[2017-06-11 16:03] VITALS: O2SAT 96
--- NOTE | 2017-06-11 17:31 | HHI.FPPN ---
Subjective Remarks Patient doing okay today. Status post HIDA scan. Then used to complain of abdominal discomfort, but this is not worse than usual. Patient states her mood is improved from before. She denies fever, nausea, vomiting. Passing gas and urinating without difficulty. (Prabhu Blackwood MD, R3) Objective Vitals Vital Signs Date Time Temp Pulse Resp B/P (MAP) Pulse Ox O2 Delivery O2 Flow Rate FiO2 06/11/17 16:03 96 21 06/11/17 16:00 98.1 73 18 95/66 (76) 98 06/11/17 09:32 98 06/11/17 08:00 99.0 65 18 134/73 (93) 96 06/11/17 00:46 98.5 64 17 133/62 (85) 93 06/10/17 20:34 97 06/10/17 19:26 97.7 73 17 152/74 (100) 97 I/O 06/10/17 06/10/17 06/10/17 06/11/17 06/11/17 06/11/17 07:00 15:00 23:00 07:00 15:00 23:00 Intake Total 240 ml 600 ml 360 ml 0 ml 480 ml Output Total 5 ml 20 ml 10 ml 30 ml Balance 235 ml 600 ml 340 ml -10 ml 450 ml Intake Oral 240 ml 600 ml 360 ml 0 ml 480 ml Drainage Total 5 ml 20 ml 10 ml 30 ml # Voids 2 2 2 2 1 # Bowel Movements 0 0 0 0 (Prabhu Blackwood MD, R3) Result Diagram: 06/11/17 0430 06/11/17 0430 Imaging Last 24 hours Impressions Hepatobiliary Scan Nuclear Medicine 06/11/17 0000 Signed Impressions: Service Date/Time: Sunday, June 11, 2017 10:05 - CONCLUSION: 1. Abnormal hepatic parenchymal phase with significant retention of the radiotracer within the parenchyma. This suggests significant hepatocellular dysfunction. 2. The presence of activity in the small bowel excludes complete obstruction of the common bile duct. 3. 3. 3. 3. Differential consideration for the retained hepatocellular activity include hepatic cellular dysfunction and partial obstruction. 4. There is insufficient bowel activity to either include or exclude a leak, but no activity is seen outside of bowel. Robby Asif MD Objective Remarks GENERAL: Well-nourished, well-developed patient. No acute distress. SKIN: Warm and dry. No rash. EYES: No scleral icterus. No injection or drainage. PERRLA. EOMI. HENT: Normocephalic. Atraumatic. MMM. NECK: No visible JVD or lymphadenopathy. CARDIOVASCULAR: Warm and well perfused. RESPIRATORY: Clear to auscultation. Normal respiratory effort. GASTROINTESTINAL: Abdomen nondistended. 3, 1 cm linear erythematous port site that are CDI. Tender to palpation of the right upper quadrant. No rebound or guarding. Bianchi's sign positive. BS present. MUSCULOSKELETAL: Strength grossly WNL. BACK: Without obvious deformity. NEURO/PSYCH: Afocal. Awake, alert, and oriented x3. 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 Cholecystectomy on 06/06/2017. Discharge Planning Pending clinical improvement and recommendations from specialists Will need assistance with drain management. (Prabhu Blackwood MD, R3) Attending Attestation Patient seen and examined. Case reviewed and discussed with the resident team. Agree with plan of care as discussed with me and documented in the resident note. she is worsening with pain and her LFTs. will adjust her pain meds and stop her Zanaflex (Giana Chopra MD) Problem List: (1) Acute cholecystitis ICD Codes: K81.0 - Acute cholecystitis Status: Acute Plan: Cholecystectomy 06/06/2017 with drain placement GI and general surgery consulted Per general surgery, may need ERCP/stent placement to manage drainage. HIDA scan abnormal on 06/11 Continue Roxicodone every 4 hours when necessary pain 6-10 Zosyn 3.375 mg every 6 hours IV. D/C upon discharge. (2) LFT elevation ICD Codes: R79.89 - Other specified abnormal findings of blood chemistry Plan: Unclear etiology Likely from recent cholecystectomy GI and general surgery on board See above (3) Depression ICD Codes: F32.9 - Major depressive disorder, single episode, unspecified Status: Acute Plan: Prozac decreased to 20 mg daily secondary to elevated liver enzymes. Continue Abilify 5 mg daily. Add Ativan 0.5 mg q 4 as needed for anxiety. Changing tizanidine to when necessary for muscle spasm (4) Peptic ulcer disease ICD Codes: K27.9 - Peptic ulcer, site unspecified, unspecified as acute or chronic, without hemorrhage or perforation Status: Chronic Plan: Resume PPI, follow H&H. (5) Nutrition, metabolism, and development symptoms ICD Codes: R63.8 - Other symptoms and signs concerning food and fluid intake Plan: Nutrition: diet per surgery, currently regular DVT ppx: SCDs IVF: PO GI ppx: PPI 40 iv daily. (Prabhu Blackwood MD, R3) Prabhu Blackwood MD, R3 Jun 11, 2017 17:31 Giana Chopra MD Jun 12, 2017 12:34
[2017-06-11 19:26] VITALS: BP 127/69; PULSE 71; RESP 18; TEMP 96.4; O2SAT 97
[2017-06-11] MEDS: MORPHINE SULFATE 2 MG/ML INJ IV PUSH PRN (20:25)
[2017-06-11] MEDS: SODIUM CHLORIDE 0.9% FLUSH 10 ML FLUSH IV FLUSH PRN (20:26)
[2017-06-12 00:35] VITALS: BP 139/75; PULSE 60; RESP 18; TEMP 97.8; O2SAT 97
[2017-06-12] MEDS: PIPERACIL-TAZO 3.375 GM PREMIX 50 ML IV SCH ×4 (02:45→21:01)
[2017-06-12] MEDS: SODIUM CHLORIDE 0.9% FLUSH 10 ML FLUSH IV FLUSH PRN (02:45)
[2017-06-12] MEDS: RESP: ALBUTEROL 2.5 MG/IPRATROPIUM 0.5 MG NEB (SCH) INH (03:13)
[2017-06-12 04:03] VITALS: BP 116/64; PULSE 58; RESP 18; TEMP 98.3; O2SAT 95
[2017-06-12 05:55] LABS: AUTOMATED NEUTROPHIL # 6.9 TH/MM3 (1.8-7.7); BASOPHIL # 0.1 TH/MM3 (0-0.2); BASOPHIL % 0.8 % (0.0-2.0); EOSINOPHIL # 0.4 TH/MM3 (0-0.4); EOSINOPHIL % 3.7 % (0.0-4.0); HEMATOCRIT 35.8 % (35.0-46.0); LYMPH % 33.1 % (9.0-44.0); MEAN CELL VOLUME 97.6 FL (80.0-100.0); MEAN CORPUSCULAR HEMOGLOBIN 32.6 PG (27.0-34.0); MEAN CORPUSCULAR HGB CONC 33.4 % (32.0-36.0); MEAN PLATELET VOLUME 7.8 FL (7.0-11.0); MONO % 5.9 % (0.0-8.0); MONOCYTE # 0.7 TH/MM3 (0-0.9); NEUT % 56.5 % (16.0-70.0); PLATELET COUNT 530 TH/MM3 (150-450); RED BLOOD COUNT 3.67 MIL/MM3 (4.00-5.30); WHITE BLOOD COUNT 12.2 TH/MM3 (4.0-11.0)
[2017-06-12 06:23] LABS: ALBUMIN 2.6 GM/DL (3.4-5.0); ALT (GPT) 344 U/L (10-53); AST (GOT) 224 U/L (15-37); BICARBONATE 27.1 MEQ/L (21.0-32.0); BLOOD UREA NITROGEN 7 MG/DL (7-18); CALCIUM 9.2 MG/DL (8.5-10.1); CHLORIDE 104 MEQ/L (98-107); CREATININE 1.25 MG/DL (0.50-1.00); GLOMERULAR FILTRATION RATE 44 ML/MIN (>89); GLUCOSE,RANDOM 100 MG/DL (74-106); SODIUM (NA) 140 MEQ/L (136-145)
[2017-06-12 06:26] LABS: ALKALINE PHOSPHATASE 649 U/L (45-117); TOTAL BILIRUBIN ADULT 1.6 MG/DL (0.2-1.0); TOTAL PROTEIN 7.4 GM/DL (6.4-8.2)
[2017-06-12 08:00] VITALS: BP 126/62; PULSE 56; RESP 16; TEMP 98.4; O2SAT 96
[2017-06-12] MEDS: ARIPiprazole 5 MG TAB PO SCH (08:47)
[2017-06-12] MEDS: LISINOPRIL 10 MG TAB PO SCH (08:47)
[2017-06-12] MEDS: FLUoxetine HCL 20 MG CAP PO SCH (08:47)
[2017-06-12] MEDS: guaiFENesin E.R. 600 MG TAB PO SCH ×2 (08:55→21:06)
[2017-06-12] MEDS: SODIUM CHLORIDE 0.9% FLUSH 10 ML FLUSH IV FLUSH SCH ×2 (09:00→21:01)
[2017-06-12] MEDS: BISACODYL 10 MG SUPP RECTAL SCH (09:00)
[2017-06-12 11:30] VITALS: BP 99/61; PULSE 68; RESP 16; TEMP 98.5; O2SAT 98
--- NOTE | 2017-06-12 11:43 | HHI.FPPN ---
Subjective Remarks Patient seen and examined this morning. Temperature 98.4, pulse 56, respiratory rate 16, blood pressure 126/62, pulse ox 96 on room air. Labs today showed a continuing elevated AST and ALT. Per GI recommendations she will be getting an MRCP in order to determine if an ERCP with stent placement will be required. She understands and agrees to this plan of care which will be performed throughout the day. She reports still having some right upper quadrant abdominal pain. She reports having a bowel movement yesterday morning. Other than the abdominal pain she has no major complaints and is looking forward to getting out of the hospital soon and back to her puppy dogs once the workup is complete. (Casimiro Chairez MD, R3) Objective Vitals Vital Signs Date Time Temp Pulse Resp B/P (MAP) Pulse Ox O2 Delivery O2 Flow Rate FiO2 06/12/17 08:00 98.4 56 16 126/62 (83) 96 06/12/17 04:03 98.3 58 18 116/64 (81) 95 06/12/17 01:39 18 06/12/17 00:35 97.8 60 18 139/75 (96) 97 06/11/17 20:30 18 06/11/17 19:26 96.4 71 18 127/69 (88) 97 06/11/17 18:46 18 06/11/17 16:03 96 21 06/11/17 16:00 98.1 73 18 95/66 (76) 98 I/O 06/11/17 06/11/17 06/11/17 06/12/17 06/12/17 06/12/17 07:00 15:00 23:00 07:00 15:00 23:00 Intake Total 0 ml 480 ml 360 ml 360 ml Output Total 10 ml 30 ml 15 ml 10 ml Balance -10 ml 450 ml 345 ml 350 ml Intake Oral 0 ml 480 ml 360 ml 360 ml Drainage Total 10 ml 30 ml 15 ml 10 ml # Voids 2 1 2 1 # Bowel Movements 0 0 0 0 (Casimiro Chairez MD, R3) Result Diagram: 06/12/17 0409 06/12/17 0409 Imaging Last Impressions Hepatobiliary Scan Nuclear Medicine 06/11/17 0000 Signed Impressions: Service Date/Time: Sunday, June 11, 2017 10:05 - CONCLUSION: 1. Abnormal hepatic parenchymal phase with significant retention of the radiotracer within the parenchyma. This suggests significant hepatocellular dysfunction. 2. The presence of activity in the small bowel excludes complete obstruction of the common bile duct. 3. 3. 3. 3. Differential consideration for the retained hepatocellular activity include hepatic cellular dysfunction and partial obstruction. 4. There is insufficient bowel activity to either include or exclude a leak, but no activity is seen outside of bowel. Robby Asif MD Abdomen/Pelvis CT 06/08/17 0000 Signed Impressions: Service Date/Time: May 18:05 - CONCLUSION: 1. Postoperative cholecystectomy with drain in the right upper quadrant in the gallbladder bed. There is still some loculated air and trace fluid in the gallbladder bed as well as inflammatory or edematous changes in right upper quadrant fat. Trace free air is also present around the liver. No drainable fluid collections present. No biliary ductal dilatation. Royce Haynes MD Chest X-Ray 06/03/17 1321 Signed Impressions: Service Date/Time: Saturday, June 03, 2017 14:17 - CONCLUSION: No acute disease. No significant change has occurred. Lito Burnett MD Gall Bladder Ultrasound 06/03/17 0000 Signed Impressions: Service Date/Time: Saturday, June 03, 2017 15:08 - CONCLUSION: Sludge and stones in the gallbladder with thickened wall consistent with cholecystitis. Otherwise negative exam Lito Burnett MD Cholangiopancreatography MRI 06/03/17 0000 Signed Impressions: Service Date/Time: Saturday, June 03, 2017 18:21 - CONCLUSION: 1. Multiple small gallstones in the fundus and layering in the lumen. There is also evidence of layering sludge within the gallbladder lumen. 2. Normal dimension common hepatic duct without filling defects. Robby Asif MD Objective Remarks GENERAL: Well-nourished, well-developed patient. No acute distress. SKIN: Warm and dry. No rash. EYES: No scleral icterus. No injection or drainage. PERRLA. EOMI. HENT: Normocephalic. Atraumatic. MMM. NECK: No visible JVD or lymphadenopathy. CARDIOVASCULAR: Warm and well perfused. RESPIRATORY: Clear to auscultation. Normal respiratory effort. GASTROINTESTINAL: Abdomen nondistended. 3, 1 cm linear erythematous port site that are CDI. Tender to palpation of the right upper quadrant. No rebound or guarding. Bianchi's sign positive. BS present. MUSCULOSKELETAL: Strength grossly WNL. BACK: Without obvious deformity. NEURO/PSYCH: Afocal. Awake, alert, and oriented x3. Procedures 06/06/17: Cholecystectomy Medications and IVs Current Medications Medications (Trade) Dose Ordered Sig/Jose Route Start Time Stop Time Status Last Admin (NS Flush) 2 ml UNSCH PRN IV FLUSH 06/03/17 16:15 06/12/17 02:45 (NS Flush) 2 ml BID IV FLUSH 06/03/17 21:00 06/12/17 09:00 (Zofran Inj) 4 mg Q6H PRN IVP 06/03/17 16:15 06/10/17 13:05 (Narcan Inj) 0.4 mg UNSCH PRN IV PUSH 06/03/17 16:15 (Senokot) 17.2 mg Q12H PRN PO 06/03/17 16:15 06/10/17 04:18 (Dulcolax Supp) 10 mg DAILY PRN RECTAL 06/03/17 16:15 06/10/17 04:58 (Lactulose Liq) 30 ml DAILY PRN PO 06/03/17 16:15 06/11/17 02:53 (Abilify) 5 mg DAILY PO 06/04/17 09:00 06/12/17 08:47 Patient Own Medication PT OWN MED: MYRBET... DAILY PO 06/03/17 18:00 Future Hold (Desyrel) 200 mg HS PRN PO 06/03/17 17:15 06/10/17 22:18 (Mucinex Er) 600 mg BID PO 06/03/17 21:00 06/12/17 08:55 Piperacillin Sod/ Tazobactam Sod 50 ml @ 100 mls/hr Q6H IV 06/04/17 03:00 06/12/17 02:45 (Morphine Inj) 2 mg Q3H PRN IV PUSH 06/04/17 00:15 06/11/17 20:25 (Nicotine Gum) 4 mg Q1H PRN CHEW 06/04/17 12:45 06/11/17 13:39 (Vasotec Inj) 1.25 mg Q6H PRN IV PUSH 06/05/17 07:30 06/06/17 06:03 (Ativan Inj) 0.5 mg Q4H PRN IV 06/05/17 16:30 06/06/17 02:56 (Prinivil) 10 mg DAILY PO 06/06/17 09:00 06/12/17 08:47 (Albuterol Neb) 2.5 mg Q4HR NEB PRN NEB 06/08/17 00:15 06/08/17 00:15 (Dulcolax Supp) 10 mg DAILY RECTAL 06/09/17 18:30 06/10/17 07:43 (PROzac) 20 mg DAILY PO 06/10/17 09:00 06/12/17 08:47 (Roxicodone) 5 mg Q4H PRN PO 06/10/17 08:15 06/11/17 07:27 (Roxicodone) 10 mg Q4H PRN PO 06/11/17 13:30 06/12/17 05:44 (Zanaflex) 4 mg TID PRN PO 06/11/17 16:45 06/11/17 17:43 (Casimiro Chairez MD, R3) A/P Assessment and Plan 56-year-old female, with persistent right upper quadrant abdominal pain, found to have acute cholecystitis. Cholecystectomy on 06/06/2017. Continues to have elevating liver enzymes requiring further workup at this time. Discharge Planning Pending clinical improvement and recommendations from specialists Will need assistance with drain management. (Casimiro Chairez MD, R3) Attending Attestation Patient seen and examined. Case reviewed and discussed with the resident team. Agree with plan of care as discussed with me and documented in the resident note. she is more alert today than yesterday and will have perhaps a procedure today to help with her bile duct obstruction (Giana Chopra MD) Problem List: (1) Acute cholecystitis ICD Codes: K81.0 - Acute cholecystitis Status: Acute Plan: Cholecystectomy 06/06/2017 with drain placement GI and general surgery consulted, recommendations appreciated Per general surgery, may need ERCP/stent placement to manage drainage. Awaiting results of MRCP to determine need for ERCP/stent placement. HIDA scan abnormal on 06/11 Continue Roxicodone every 4 hours when necessary pain 6-10 Zosyn 3.375 mg every 6 hours IV. D/C upon discharge. (2) LFT elevation ICD Codes: R79.89 - Other specified abnormal findings of blood chemistry Plan: Currently trending up. Unclear etiology Likely from recent cholecystectomy GI and general surgery on board See above (3) Depression ICD Codes: F32.9 - Major depressive disorder, single episode, unspecified Status: Acute Plan: Prozac decreased to 20 mg daily secondary to elevated liver enzymes. Continue Abilify 5 mg daily. Add Ativan 0.5 mg q 4 as needed for anxiety. Changing tizanidine to when necessary for muscle spasm (4) Peptic ulcer disease ICD Codes: K27.9 - Peptic ulcer, site unspecified, unspecified as acute or chronic, without hemorrhage or perforation Status: Chronic Plan: Resume PPI, follow H&H. (5) Nutrition, metabolism, and development symptoms ICD Codes: R63.8 - Other symptoms and signs concerning food and fluid intake Plan: Nutrition: diet per surgery, currently regular DVT ppx: SCDs IVF: PO GI ppx: PPI 40 iv daily. (Casimiro Chairez MD, R3) Casimiro Chairez MD, R3 Jun 12, 2017 11:43 Giana Chopra MD Jun 12, 2017 12:36
--- NOTE | 2017-06-12 11:55 | HHI.GIFU ---
Subjective Remarks Pt resting in bed in NAD. She is upset that she was made NPO. persistent RUQ pain. No n/v. (Andree Main) Objective Vitals I&O Vital Signs Date Time Temp Pulse Resp B/P (MAP) Pulse Ox O2 Delivery O2 Flow Rate FiO2 06/12/17 08:00 98.4 56 16 126/62 (83) 96 06/12/17 04:03 98.3 58 18 116/64 (81) 95 06/12/17 01:39 18 06/12/17 00:35 97.8 60 18 139/75 (96) 97 06/11/17 20:30 18 06/11/17 19:26 96.4 71 18 127/69 (88) 97 06/11/17 18:46 18 06/11/17 16:03 96 21 06/11/17 16:00 98.1 73 18 95/66 (76) 98 I/O 06/11/17 06/11/17 06/11/17 06/12/17 06/12/17 06/12/17 07:00 15:00 23:00 07:00 15:00 23:00 Intake Total 0 ml 480 ml 360 ml 360 ml Output Total 10 ml 30 ml 15 ml 10 ml Balance -10 ml 450 ml 345 ml 350 ml Intake Oral 0 ml 480 ml 360 ml 360 ml Drainage Total 10 ml 30 ml 15 ml 10 ml # Voids 2 1 2 1 # Bowel Movements 0 0 0 0 Laboratory Laboratory Tests Test 06/12/17 04:09 White Blood Count 12.2 Red Blood Count 3.67 Hemoglobin 12.0 Hematocrit 35.8 Mean Corpuscular Volume 97.6 Mean Corpuscular Hemoglobin 32.6 Mean Corpuscular Hemoglobin Concent 33.4 Red Cell Distribution Width 15.0 Platelet Count 530 Mean Platelet Volume 7.8 Neutrophils (%) (Auto) 56.5 Lymphocytes (%) (Auto) 33.1 Monocytes (%) (Auto) 5.9 Eosinophils (%) (Auto) 3.7 Basophils (%) (Auto) 0.8 Neutrophils # (Auto) 6.9 Lymphocytes # (Auto) 4.0 Monocytes # (Auto) 0.7 Eosinophils # (Auto) 0.4 Basophils # (Auto) 0.1 CBC Comment DIFF FINAL Differential Comment Blood Urea Nitrogen 7 Creatinine 1.25 Random Glucose 100 Total Protein 7.4 Albumin 2.6 Calcium Level 9.2 Alkaline Phosphatase 649 Aspartate Amino Transf (AST/SGOT) 224 Alanine Aminotransferase (ALT/SGPT) 344 Total Bilirubin 1.6 Sodium Level 140 Potassium Level 4.0 Chloride Level 104 Carbon Dioxide Level 27.1 Anion Gap 9 Estimat Glomerular Filtration Rate 44 Date/Time Source Procedure Growth Status 06/03/17 16:30 Blood Peripheral Aerobic Blood Culture - Final NO GROWTH IN 5 DAYS Complete 06/03/17 16:30 Blood Peripheral Anaerobic Blood Culture - Final NO GROWTH IN 5 DAYS Complete Imaging Last Impressions Hepatobiliary Scan Nuclear Medicine 06/11/17 0000 Signed Impressions: Service Date/Time: Sunday, June 11, 2017 10:05 - CONCLUSION: 1. Abnormal hepatic parenchymal phase with significant retention of the radiotracer within the parenchyma. This suggests significant hepatocellular dysfunction. 2. The presence of activity in the small bowel excludes complete obstruction of the common bile duct. 3. 3. 3. 3. Differential consideration for the retained hepatocellular activity include hepatic cellular dysfunction and partial obstruction. 4. There is insufficient bowel activity to either include or exclude a leak, but no activity is seen outside of bowel. Robby Asif MD Abdomen/Pelvis CT 06/08/17 0000 Signed Impressions: Service Date/Time: May 18:05 - CONCLUSION: 1. Postoperative cholecystectomy with drain in the right upper quadrant in the gallbladder bed. There is still some loculated air and trace fluid in the gallbladder bed as well as inflammatory or edematous changes in right upper quadrant fat. Trace free air is also present around the liver. No drainable fluid collections present. No biliary ductal dilatation. Royce Haynes MD Chest X-Ray 06/03/17 1321 Signed Impressions: Service Date/Time: Saturday, June 03, 2017 14:17 - CONCLUSION: No acute disease. No significant change has occurred. Lito Burnett MD Gall Bladder Ultrasound 06/03/17 0000 Signed Impressions: Service Date/Time: Saturday, June 03, 2017 15:08 - CONCLUSION: Sludge and stones in the gallbladder with thickened wall consistent with cholecystitis. Otherwise negative exam Lito Burnett MD Cholangiopancreatography MRI 06/03/17 0000 Signed Impressions: Service Date/Time: Saturday, June 03, 2017 18:21 - CONCLUSION: 1. Multiple small gallstones in the fundus and layering in the lumen. There is also evidence of layering sludge within the gallbladder lumen. 2. Normal dimension common hepatic duct without filling defects. Robby Asif MD Physical Exam HEENT: PERRL; normocephalic; atraumatic; no jaundice. CHEST: CTA CARDIAC: RRR ABDOMEN: Soft,mildly distended, epigastric TTP; no hepatosplenomegaly; bowel sounds are present in all four quadrants. RUQ EXTREMITIES: No clubbing, cyanosis, or edema. SKIN: Normal; no rash; no jaundice. SUPERVISOR SHAVING AND SPLITTING: No focal deficits; alert and oriented times three. (Andree Main CHILD AND FAMILY THERAPIST) Assessment and Plan Plan Assessment: - Epigastric and RUQ pain with transaminitis and elevated bilirubin. US gallbladder (06/03) --> Sludge and stones in the gallbladder with thickened wall consistent with cholecystitis. Otherwise negative exam. GS evaluated for possible acute cholecystitis given symptoms, leukocytosis. They ordered MRCP to rule out choledocholithiasis --> Multiple small gallstones in the fundus and layering in the lumen. there is also evidence of layering sludge within the gallbladder lumen. Normal dimension common hepatic duct without filling defects. Last EGD approx a year ago, she is unsure of findings - Transaminitis, yesterday labs as follows: AST-102 ALT-101 T bili-3 Alk phos- 299. No repeat labs from today to evaluate trend. - Leukocytosis- Zosyn 06/05/17 LFts remain elevated. hep panel pending. ?lap hermes still with epigastric discomfort, n/v somewaht imiproved. 06/08/17 - now s/p lap hermes, finding acute gangrenous cholecystitis, and has persistently elevated LFTs and persistent abd pain, never improved admits n/v as well. GI reconsulted. d/w GS CHILD AND FAMILY THERAPIST, unable to do IOC during cholecystectomy. 06/10/17 Tbil trending down. other LFTs trending up, ?infectious. on zosyn. CT abd noted, no CBD dilatation. GS has cleared for d/c with rck CMP prior to GS follow up. 06/12/18 LFTs increasing, Tbil stable. persistent RUQ pain. MRCP showed CBD filling defect. Plan: - ERCP tomorrow - obtain consent - heart healthy diet today - NPO after midnight - continue abx - monitor labs - supportive care Pt has been seen and examined by myself and and myself and this note is written on his behalf (Andree Main) Physician Comments Seen and examined with CHILD AND FAMILY THERAPIST, MRCP reviewed with pt. ERCP scheduled for tomorrow. (Zoie Rai MD) Andree Main Jun 12, 2017 11:55 Zoie Rai MD Jun 12, 2017 16:54
--- NOTE | 2017-06-12 14:32 | HHI.PR ---
Subjective Subjective Notes C/o pain at MAXIMO insertion site Objective Vitals/I&O Vital Signs Date Time Temp Pulse Resp B/P (MAP) Pulse Ox O2 Delivery O2 Flow Rate FiO2 06/12/17 11:30 98.5 68 16 99/61 (74) 98 06/11/17 16:03 21 06/09/17 21:42 Room Air Labs Laboratory Tests Test 06/12/17 04:09 White Blood Count 12.2 Red Blood Count 3.67 Hemoglobin 12.0 Hematocrit 35.8 Mean Corpuscular Volume 97.6 Mean Corpuscular Hemoglobin 32.6 Mean Corpuscular Hemoglobin Concent 33.4 Red Cell Distribution Width 15.0 Platelet Count 530 Mean Platelet Volume 7.8 Neutrophils (%) (Auto) 56.5 Lymphocytes (%) (Auto) 33.1 Monocytes (%) (Auto) 5.9 Eosinophils (%) (Auto) 3.7 Basophils (%) (Auto) 0.8 Neutrophils # (Auto) 6.9 Lymphocytes # (Auto) 4.0 Monocytes # (Auto) 0.7 Eosinophils # (Auto) 0.4 Basophils # (Auto) 0.1 CBC Comment DIFF FINAL Differential Comment Blood Urea Nitrogen 7 Creatinine 1.25 Random Glucose 100 Total Protein 7.4 Albumin 2.6 Calcium Level 9.2 Alkaline Phosphatase 649 Aspartate Amino Transf (AST/SGOT) 224 Alanine Aminotransferase (ALT/SGPT) 344 Total Bilirubin 1.6 Sodium Level 140 Potassium Level 4.0 Chloride Level 104 Carbon Dioxide Level 27.1 Anion Gap 9 Estimat Glomerular Filtration Rate 44 Date/Time Source Procedure Growth Status 06/03/17 16:30 Blood Peripheral Aerobic Blood Culture - Final NO GROWTH IN 5 DAYS Complete 06/03/17 16:30 Blood Peripheral Anaerobic Blood Culture - Final NO GROWTH IN 5 DAYS Complete Cardiovascular: Regular Lungs: Clear Abdomen: Other (MAXIMO with dark serous drainage; lap sites c/d/i ), Post-op tenderness Extremities: No edema A/P Problem List: (1) Elevated liver enzymes ICD Codes: R74.8 - Abnormal levels of other serum enzymes Status: Acute (2) Total bilirubin, elevated ICD Codes: R17 - Unspecified jaundice Status: Acute (3) Gallstones ICD Codes: K80.20 - Calculus of gallbladder without cholecystitis without obstruction Status: Acute (4) Abnormal findings on imaging of biliary tract ICD Codes: R93.2 - Abnormal findings on diagnostic imaging of liver and biliary tract Status: Acute (5) Acute cholecystitis ICD Codes: K81.0 - Acute cholecystitis Status: Acute Assessment and Plan 56 year old female with acute cholecystitis; POD5 lap hermes with drain placement -Diet as tolerated -MRCP today---await results---may need ERCP---defer to GI -DC MAXIMO drain today Attending Statement The exam, history, and the medical decision-making described in the above note were completed with the assistance of the mid-level provider. I reviewed and agree with the findings presented. I attest that I had a [id number] encounter with the patient on the same day, and personally performed and documented my assessment and findings in the medical record. abdominal exam: postop tenderness, incision c/d/i, MAXIMO clear ok to Dc drain fu MRCP HIDA shows possible partial obstruction Sharon SosaP/Lap Hand Tool TRANSIT OPERATOR Jun 12, 2017 14:32 Steve Moon MD Jun 13, 2017 10:58
--- NOTE | 2017-06-12 15:06 | RADRPT ---
EXAM DATE/TIME: 06/12/2017 11:59 [facility] COMPARISON: MRCP W/O CONTRAST, June 03, 2017, 18:21. INDICATIONS : Abdominal pain. Post cholecystectomy with drain in place. MEDICAL HISTORY : Gastroesophageal reflux disease. SURGICAL HISTORY : Cholecystectomy. ENCOUNTER: Subsequent ACUITY: 2 day PAIN SCORE: 4/10 LOCATION: Right abdomen TECHNIQUE: Multiplanar, multisequence magnetic resonance imaging of the abdomen was performed. High-resolution 3D dataset was utilized to reconstruct maximum-intensity projection (MIP) images. FINDINGS: The intrahepatic ducts are within normal limits. The proper hepatic duct is normal in caliber. The pa tient is post cholecystectomy. The common duct measures 5 mm. There is a punctate filling defect in t he distal common duct just above the ampulla most consistent with a small retained stone. There is a surgical drain in place within the gallbladder fossa. The spleen, pancreas, adrenal glands and kidneys are normal in appearance. There is no retroperitonea l lymphadenopathy. No free fluid is identified. The loops of small large bowel are unremarkable. CONCLUSION: 1. There is a punctate filling defect in the distal common duct most consistent with a small retained stone. 2. The patient is post cholecystectomy. There is a drain in place. 3. There are postoperative changes in the subcutaneous soft tissues of the right flank. Salbador Courtney MD on June 12, 2017 at 15:01 Board Certified Radiologist. This report was verified electronically.
[2017-06-12 16:00] VITALS: BP 126/69; PULSE 70; RESP 18; TEMP 98.8; O2SAT 98
[2017-06-12] MEDS: ONDANSETRON HCL 4 MG/2 ML VIAL IVP PRN (16:13)
[2017-06-12] MEDS: NICOTINE 4 MG/GUM CHEW PRN (16:39)
[2017-06-12] MEDS: LACTULOSE SYRUP 20 GM/30 ML CUP PO PRN (16:40)
[2017-06-12] MEDS ORDERED: METOPROLOL TARTRATE 25 MG TAB PO PRN (17:45)
[2017-06-12] MEDS ORDERED: POVIDONE IODINE 5% (ANTISEPSIS KIT) 4 APPLICATIONS EACH NARE PRN (17:45)
[2017-06-12] MEDS ORDERED: SODIUM CHLORID 0.9% 500 ML IV PRN (17:45)
[2017-06-12] MEDS ORDERED: LACTATED RINGER'S 1000 ML IV PRN (17:45)
[2017-06-12] MEDS ORDERED: CHLORHEXIDINE GLUCONATE 2 % 1 PACK (2 CLOTHS) TOPICAL PRN (17:45)
[2017-06-12 22:00] VITALS: BP 115/62; PULSE 68; RESP 18; TEMP 99; O2SAT 99
[2017-06-12] MEDS: traZODone HCL 100 MG TAB PO PRN (22:06)
[2017-06-13 01:00] VITALS: BP 110/53; PULSE 67; RESP 17; TEMP 98.6; O2SAT 93
[2017-06-13] MEDS: PIPERACIL-TAZO 3.375 GM PREMIX 50 ML IV SCH ×3 (03:24→15:35)
[2017-06-13 03:30] VITALS: BP 101/58; PULSE 68; RESP 18; TEMP 98.4; O2SAT 94
[2017-06-13 05:30] LABS: HEMATOCRIT 36.5 % (35.0-46.0); HEMOGLOBIN 12.3 GM/DL (11.6-15.3); MEAN CELL VOLUME 96.5 FL (80.0-100.0); MEAN CORPUSCULAR HEMOGLOBIN 32.4 PG (27.0-34.0); MEAN CORPUSCULAR HGB CONC 33.6 % (32.0-36.0); MEAN PLATELET VOLUME 7.9 FL (7.0-11.0); PLATELET COUNT 529 TH/MM3 (150-450); RED BLOOD COUNT 3.78 MIL/MM3 (4.00-5.30)
[2017-06-13 05:53] LABS: ALBUMIN 2.7 GM/DL (3.4-5.0); AST (GOT) 269 U/L (15-37); BICARBONATE 25.2 MEQ/L (21.0-32.0); BLOOD UREA NITROGEN 10 MG/DL (7-18); CALCIUM 9.5 MG/DL (8.5-10.1); CHLORIDE 105 MEQ/L (98-107); CREATININE 1.19 MG/DL (0.50-1.00); GLOMERULAR FILTRATION RATE 47 ML/MIN (>89); GLUCOSE,RANDOM 95 MG/DL (74-106); SODIUM (NA) 140 MEQ/L (136-145)
[2017-06-13 05:54] LABS: ALT (GPT) 379 U/L (10-53)
[2017-06-13 05:56] LABS: ALKALINE PHOSPHATASE 717 U/L (45-117); TOTAL BILIRUBIN ADULT 1.5 MG/DL (0.2-1.0); TOTAL PROTEIN 7.1 GM/DL (6.4-8.2)
[2017-06-13 07:47] VITALS: BP 91/63; PULSE 63; RESP 17; TEMP 97.8; O2SAT 96
[2017-06-13] MEDS: FLUoxetine HCL 20 MG CAP PO SCH (08:13)
[2017-06-13] MEDS: LISINOPRIL 10 MG TAB PO SCH (08:13)
[2017-06-13] MEDS: guaiFENesin E.R. 600 MG TAB PO SCH (08:13)
[2017-06-13] MEDS: ARIPiprazole 5 MG TAB PO SCH (08:13)
[2017-06-13] MEDS: SODIUM CHLORIDE 0.9% FLUSH 10 ML FLUSH IV FLUSH SCH (08:14)
[2017-06-13] MEDS: BISACODYL 10 MG SUPP RECTAL SCH (08:17)
--- NOTE | 2017-06-13 10:00 | GIPROC ---
[facility] [address] [facility]. [facility], [address] ERCP PROCEDURE REPORT EXAM DATE: 06/13/2017 PATIENT NAME: Diane Pickett MR #: [id number] BIRTHDATE: 1960 ATTENDING: Zoie Rai MD ORDER #: [id number] FLAKER TENDER: Thais Traylor and Mayra Palencia STATUS: inpatient INDICATIONS: The patient is a 56 yr old female here for an ERCP due to abdominal pain of suspected biliary origin and established bile duct stone(s) PROCEDURE PERFORMED: ERCP with sphincterotomy/papillotomy ERCP with removal of calculus/calculi MEDICATIONS: None and Per Anesthesia. CONSENT: The patient understands the risks and benefits of the procedure and understands that these risks include, but are not limited to: sedation, allergic reaction, infection, perforation and/or bleeding. Alternative means of evaluation and treatment include, among others: physical exam, x-rays, and/or surgical intervention. The patient elects to proceed with this endoscopic procedure. medical equipment was checked for proper function. Hand hygiene and appropriate measures for infection prevention was taken. After the risks, benefits and alternatives of the procedure were thoroughly explained, Informed was verified, confirmed and timeout was successfully executed by the treatment team. With the patient in left semi-prone position, medications were administered intravenously.The Pentax [id number] was passed from the mouth into the esophagus and further advanced from the esophagus into the stomach. From stomach scope was directed to the second portion of the duodenum. Major papilla was aligned with the duodenoscope. The scope position was confirmed fluoroscopically. Rest of the findings/therapeutics are given below. The scope was then completely withdrawn from the patient and the procedure completed. The pulse, BP, and O2 saturation were monitored and documented by the physician and the nursing staff throughout the entire procedure. The patient was cared for as planned according to standard protocol. The patient was then discharged to recovery in stable condition and with appropriate post procedure care. The ampulla was located the second portion of the duodenum. The ampulla appeared normal. A single filling defect was seen in the proximal common bile duct. 8mm sphincterotomy, balloon seeps x 3. Debris removed. ADVERSE EVENT: There were no complications. IMPRESSIONS: 1. Normal appearing ampulla 2. 8mm sphincterotomy, balloon seeps x 3. Debris removed RECOMMENDATIONS: Liver enzymes REPEAT EXAM: Return as needed for ERCP Zoie Rai MD eSigned: Zoie Rai MD 06/13/2017 10:00 AM cc:
[2017-06-13] MEDS ORDERED: DO NOT ADM ANY ANTICOAGULANT DRUGS PRN (10:02)
[2017-06-13] MEDS ORDERED: *morphine SULFATE 4 MG/ML PERIprocedure ONLY ONE ×2 (10:14→10:34)
[2017-06-13] MEDS ORDERED: *ONDANSETRON 4 MG VIAL PERIprocedural Use ONLY ONE (10:16)
[2017-06-13 10:50] VITALS: O2SAT 96
[2017-06-13 11:52] VITALS: BP 117/73; PULSE 59; RESP 17; TEMP 97.7; O2SAT 95
[2017-06-13] MEDS ORDERED: LIDOCAINE HCL 1% PF 5 ML SYRINGE OTHER ONE (12:00)
[2017-06-13] MEDS ORDERED: PROPOFOL 200 MG/20 ML AMP IV ONE (12:00)
[2017-06-13 12:47] LABS: ALPHA-1-ANTITRYPSIN 207 mg/dL (100 - 190)
[2017-06-13 13:20] LABS: SMOOTH MUSCLE TOTAL AUTOABS Negative (Negative)
--- NOTE | 2017-06-13 14:11 | HHI.FPPN ---
Subjective Remarks Ms Pickett had no acute events overnight. She was held NPO at midnight for ERCP this morning which went well. Pt was sitting up in bed on entry this afternoon and told us she felt much better and asked when she could go home. She is tolerating a liquid diet well, pain is much improved, she has ambulated to the bathroom without dizziness, voided post procedure. She has not had a normal BM during her hospitalization but had a small one two days ago. Denies CP, SOB, N/V /D and DVT pain. (Blake Bowser MD R1) Objective Vitals Vital Signs Date Time Temp Pulse Resp B/P (MAP) Pulse Ox O2 Delivery O2 Flow Rate FiO2 06/13/17 11:52 97.7 59 17 117/73 (88) 95 06/13/17 10:50 96 06/13/17 10:45 98.4 59 14 157/71 (99) 97 Room Air 06/13/17 10:30 56 14 150/80 (103) 99 Room Air 06/13/17 10:15 61 14 151/72 (98) 99 Room Air 06/13/17 10:05 98.4 65 14 166/72 (103) 96 Room Air 06/13/17 07:47 97.8 63 17 91/63 (72) 96 06/13/17 03:30 98.4 68 18 101/58 (72) 94 06/13/17 01:00 98.6 67 17 110/53 (72) 93 06/12/17 22:00 99.0 68 18 115/62 (79) 99 06/12/17 21:08 Room Air 06/12/17 18:50 18 06/12/17 16:00 98.8 70 18 126/69 (88) 98 I/O 06/12/17 06/12/17 06/12/17 06/13/17 06/13/17 06/13/17 07:00 15:00 23:00 07:00 15:00 23:00 Intake Total 360 ml 530 ml 100 ml 640 ml 200 ml Output Total 10 ml Balance 350 ml 530 ml 100 ml 640 ml 200 ml Intake Oral 360 ml 480 ml 640 ml IV Total 50 ml 100 ml 50 ml Other 150 ml Drainage Total 10 ml # Voids 1 2 4 # Bowel Movements 0 0 0 (Blake Bowser MD R1) Result Diagram: 06/13/17 0402 06/13/17 0402 Imaging Last 48 hours Impressions Cholangiopancreatography MRI 06/12/17 0000 Signed Impressions: Service Date/Time: Monday, June 12, 2017 11:59 - CONCLUSION: 1. There is a punctate filling defect in the distal common duct most consistent with a small retained stone. 2. The patient is post cholecystectomy. There is a drain in place. 3. There are postoperative changes in the subcutaneous soft tissues of the right flank. Salbador Courtney MD Objective Remarks GENERAL: Well-nourished, well-developed patient. No acute distress. SKIN: Warm and dry. No rash. EYES: No scleral icterus. No injection or drainage. PERRLA. EOMI. HENT: Normocephalic. Atraumatic. MMM. NECK: No visible JVD or lymphadenopathy. CARDIOVASCULAR: Warm and well perfused. RESPIRATORY: Clear to auscultation. Normal respiratory effort. GASTROINTESTINAL: Abdomen nondistended. 3, 1 cm linear erythematous port site that are CDI. Tender to palpation of the right upper quadrant. No rebound or guarding. Bianchi's sign positive. BS present. MUSCULOSKELETAL: Strength grossly WNL. BACK: Without obvious deformity. NEURO/PSYCH: Afocal. Awake, alert, and oriented x3. Procedures 06/06/17: Cholecystectomy 06/11/17: HIDA scan 06/12/17: MRCP 06/13/17: ERCP with sphincterotomy/papillotomy and removal of calculus/calculi Medications and IVs Current Medications Medications (Trade) Dose Ordered Sig/Jose Route Start Time Stop Time Status Last Admin (NS Flush) 2 ml UNSCH PRN IV FLUSH 06/03/17 16:15 06/12/17 02:45 (NS Flush) 2 ml BID IV FLUSH 06/03/17 21:00 06/13/17 08:14 (Zofran Inj) 4 mg Q6H PRN IVP 06/03/17 16:15 06/12/17 16:13 (Narcan Inj) 0.4 mg UNSCH PRN IV PUSH 06/03/17 16:15 (Senokot) 17.2 mg Q12H PRN PO 06/03/17 16:15 06/10/17 04:18 (Dulcolax Supp) 10 mg DAILY PRN RECTAL 06/03/17 16:15 06/10/17 04:58 (Lactulose Liq) 30 ml DAILY PRN PO 06/03/17 16:15 06/12/17 16:40 (Abilify) 5 mg DAILY PO 06/04/17 09:00 06/13/17 08:13 Patient Own Medication PT OWN MED: MYRBET... DAILY PO 06/03/17 18:00 Future Hold (Desyrel) 200 mg HS PRN PO 06/03/17 17:15 06/12/17 22:06 (Mucinex Er) 600 mg BID PO 06/03/17 21:00 06/13/17 08:13 Piperacillin Sod/ Tazobactam Sod 50 ml @ 100 mls/hr Q6H IV 06/04/17 03:00 06/13/17 08:12 (Morphine Inj) 2 mg Q3H PRN IV PUSH 06/04/17 00:15 06/11/17 20:25 (Nicotine Gum) 4 mg Q1H PRN CHEW 06/04/17 12:45 06/12/17 16:39 (Vasotec Inj) 1.25 mg Q6H PRN IV PUSH 06/05/17 07:30 06/06/17 06:03 (Ativan Inj) 0.5 mg Q4H PRN IV 06/05/17 16:30 06/06/17 02:56 (Prinivil) 10 mg DAILY PO 06/06/17 09:00 06/12/17 08:47 (Albuterol Neb) 2.5 mg Q4HR NEB PRN NEB 06/08/17 00:15 06/08/17 00:15 (Dulcolax Supp) 10 mg DAILY RECTAL 06/09/17 18:30 06/10/17 07:43 (PROzac) 20 mg DAILY PO 06/10/17 09:00 06/13/17 08:13 (Roxicodone) 5 mg Q4H PRN PO 06/10/17 08:15 06/11/17 07:27 (Roxicodone) 10 mg Q4H PRN PO 06/11/17 13:30 06/13/17 11:44 (Zanaflex) 4 mg TID PRN PO 06/11/17 16:45 06/11/17 17:43 Lactated Ringer's 1,000 ml @ 30 mls/hr Q24H PRN IV 06/12/17 17:45 06/15/17 17:44 Sodium Chloride 500 ml @ 30 mls/hr [id number] PRN IV 06/12/17 17:45 06/15/17 17:44 (Lopressor) 25 mg HERB GROWER PRN PO 06/12/17 17:45 06/15/17 17:44 (Betadine 5% Antisepsis Kit) 1 applic HERB GROWER PRN EACH NARE 06/12/17 17:45 06/15/17 17:44 (Chlorhexidine 2% Cloth) 3 pack HERB GROWER PRN TOPICAL 06/12/17 17:45 06/15/17 17:44 Miscellaneous Information ALL NURSING DEPARTME... UNSCH PRN .XX 06/13/17 10:02 06/14/17 10:01 (Blake Bowser MD R1) Urinary Catheter: No (Blake Bowser MD R1) A/P Assessment and Plan 56-year-old female, with persistent right upper quadrant abdominal pain, found to have acute on chronic cholecystitis. Cholecystectomy on 06/06/2017. Continued to have elevating liver enzymes requiring MRCP on 06/12/17 showing a CBD filling defect with likely small retained stone. ERCP on 06/13/17 with sphincterotomy/papillotomy and removal of calculus/calculi. Pt feeling much better post-op. Discharge Planning Per discussion with Dr Rai this afternoon, pt ok to discharge this afternoon with adequate pain control and f/u with GI in 1-2 weeks. (Blake Bowser MD R1) Attending Attestation Patient seen and examined. Case reviewed and discussed with the resident team. Agree with plan of care as discussed with me and documented in the resident note. she feels wonderful after the ERCP. her pain is virtually gone and she is hungry and wants to go home (Giana Chopra MD) Problem List: (1) Acute cholecystitis ICD Codes: K81.0 - Acute cholecystitis Status: Acute Plan: Cholecystectomy 06/06/2017 with drain placement GI and general surgery consulted, recommendations appreciated Per general surgery, may need ERCP/stent placement to manage drainage. HIDA scan abnormal on 06/11 MRCP 06/12/19 showed CBD filling defect with likely retained stone ERCP 06/13/17 with sphincterotomy/papillotomy and removal of calculi Continue Roxicodone every 4 hours when necessary pain 6-10 Zosyn 3.375 mg every 6 hours IV. D/C upon discharge. (2) LFT elevation ICD Codes: R79.89 - Other specified abnormal findings of blood chemistry Plan: Currently trending up -- ERCP with removal of stone(s) should lead to downtrend of LFTs--will check CMP in 1 week See above (3) Depression ICD Codes: F32.9 - Major depressive disorder, single episode, unspecified Status: Acute Plan: Prozac decreased to 20 mg daily secondary to elevated liver enzymes. Continue Abilify 5 mg daily. Add Ativan 0.5 mg q 4 as needed for anxiety. Changing tizanidine to when necessary for muscle spasm (4) Peptic ulcer disease ICD Codes: K27.9 - Peptic ulcer, site unspecified, unspecified as acute or chronic, without hemorrhage or perforation Status: Chronic Plan: Resume PPI, follow H&H. (5) Nutrition, metabolism, and development symptoms ICD Codes: R63.8 - Other symptoms and signs concerning food and fluid intake Plan: Nutrition: advance diet following ERCP DVT ppx: SCDs IVF: PO GI ppx: PPI 40 iv daily. (Blake Bowser MD R1) Blake Bowser MD R1 Jun 13, 2017 14:11 Giana Chopra MD Jun 15, 2017 09:28
--- NOTE | 2017-06-13 14:18 | HHI.PR ---
Subjective Subjective Notes Resting in bed Just back from ERCP Objective Vitals/I&O Vital Signs Date Time Temp Pulse Resp B/P (MAP) Pulse Ox O2 Delivery O2 Flow Rate FiO2 06/13/17 11:52 97.7 59 17 117/73 (88) 95 06/13/17 10:45 Room Air 06/11/17 16:03 21 Labs Laboratory Tests Test 06/13/17 04:02 White Blood Count 14.0 Red Blood Count 3.78 Hemoglobin 12.3 Hematocrit 36.5 Mean Corpuscular Volume 96.5 Mean Corpuscular Hemoglobin 32.4 Mean Corpuscular Hemoglobin Concent 33.6 Red Cell Distribution Width 15.0 Platelet Count 529 Mean Platelet Volume 7.9 Blood Urea Nitrogen 10 Creatinine 1.19 Random Glucose 95 Total Protein 7.1 Albumin 2.7 Calcium Level 9.5 Alkaline Phosphatase 717 Aspartate Amino Transf (AST/SGOT) 269 Alanine Aminotransferase (ALT/SGPT) 379 Total Bilirubin 1.5 Sodium Level 140 Potassium Level 3.4 Chloride Level 105 Carbon Dioxide Level 25.2 Anion Gap 10 Estimat Glomerular Filtration Rate 47 Date/Time Source Procedure Growth Status 06/03/17 16:30 Blood Peripheral Aerobic Blood Culture - Final NO GROWTH IN 5 DAYS Complete 06/03/17 16:30 Blood Peripheral Anaerobic Blood Culture - Final NO GROWTH IN 5 DAYS Complete Cardiovascular: Regular Lungs: Clear Abdomen: Non-distended, Non-tender Extremities: No edema A/P Problem List: (1) Elevated liver enzymes ICD Codes: R74.8 - Abnormal levels of other serum enzymes Status: Acute (2) Total bilirubin, elevated ICD Codes: R17 - Unspecified jaundice Status: Acute (3) Gallstones ICD Codes: K80.20 - Calculus of gallbladder without cholecystitis without obstruction Status: Acute (4) Abnormal findings on imaging of biliary tract ICD Codes: R93.2 - Abnormal findings on diagnostic imaging of liver and biliary tract Status: Acute (5) Acute cholecystitis ICD Codes: K81.0 - Acute cholecystitis Status: Acute Assessment and Plan 56 year old female with acute cholecystitis; POD6 lap hermes with drain placement -s/p ERCP -No acute General Surgery needs Sharon Sosa/First Naeem CLAROS Jun 13, 2017 14:18
--- NOTE | 2017-06-13 15:05 | RADRPT ---
EXAM DATE/TIME: 06/13/2017 09:49 [facility] COMPARISON: No previous studies available for comparison. INDICATIONS : Obstruction, sphincterotomy and stone removal. FLUORO TIME: 1.24 minutes IMAGE COUNT: 4 CONTRAST: Instilled by Ordering Physician MEDICAL HISTORY : Gastroesophageal reflux disease. SURGICAL HISTORY : Cholecystectomy. ENCOUNTER: Initial ACUITY: 1 day PAIN SCORE: Non-responsive. LOCATION: Right upper quadrant FINDINGS: An ERCP was performed by the ordering physician. The images demonstrate contrast in the pancreatic and biliary duct. On image #2, there is a filling defect in the common hepatic duct. Some contrast persists in the biliary and pancreatic ducts on the last image. CONCLUSION: ERCP as above. Robby Asif MD on June 13, 2017 at 15:03 Board Certified Radiologist. This report was verified electronically.
[2017-06-13 16:00] VITALS: BP 112/65; PULSE 60; RESP 17; TEMP 98.1; O2SAT 96
--- NOTE | 2017-06-14 11:00 | HHI.DS ---
Discharge Summary Admission Date Jun 03, 2017 at 16:27 Discharge Date: Jun 13, 2017 Admitting Diagnosis Acute cholecystitis (1) Acute cholecystitis Diagnosis: Principal Plan: Cholecystectomy 06/06/2017 with drain placement GI and general surgery consulted, recommendations appreciated Per general surgery, may need ERCP/stent placement to manage drainage. HIDA scan abnormal on 06/11 MRCP 06/12/19 showed CBD filling defect with likely retained stone ERCP 06/13/17 with sphincterotomy/papillotomy and removal of calculi Continue Roxicodone every 4 hours when necessary pain 6-10 Zosyn 3.375 mg every 6 hours IV. D/C upon discharge. ICD Codes: K81.0 - Acute cholecystitis Status: Acute (2) LFT elevation Diagnosis: Secondary Plan: Currently trending up -- ERCP with removal of stone(s) should lead to downtrend of LFTs--will check CMP in 1 week See above ICD Codes: R79.89 - Other specified abnormal findings of blood chemistry (3) Depression Diagnosis: Secondary Plan: Prozac decreased to 20 mg daily secondary to elevated liver enzymes. Continue Abilify 5 mg daily. Add Ativan 0.5 mg q 4 as needed for anxiety. Changing tizanidine to when necessary for muscle spasm ICD Codes: F32.9 - Major depressive disorder, single episode, unspecified Status: Acute (4) Peptic ulcer disease Diagnosis: Secondary Plan: Resume PPI, follow H&H. ICD Codes: K27.9 - Peptic ulcer, site unspecified, unspecified as acute or chronic, without hemorrhage or perforation Status: Chronic (5) Nutrition, metabolism, and development symptoms Diagnosis: Secondary Plan: Nutrition: advance diet following ERCP DVT ppx: SCDs IVF: PO GI ppx: PPI 40 iv daily. ICD Codes: R63.8 - Other symptoms and signs concerning food and fluid intake Consultants Gen. surgery Gastroenterology Procedures 06/06/17: Cholecystectomy 06/11/17: HIDA scan 06/12/17: MRCP 06/13/17: ERCP with sphincterotomy/papillotomy and removal of calculus/calculi CBC/BMP: 06/13/17 0402 06/13/17 0402 Significant Findings Laboratory Tests Test 06/12/17 04:09 06/13/17 04:02 White Blood Count 12.2 TH/MM3 (4.0-11.0) 14.0 TH/MM3 (4.0-11.0) Red Blood Count 3.67 MIL/MM3 (4.00-5.30) 3.78 MIL/MM3 (4.00-5.30) Platelet Count 530 TH/MM3 (150-450) 529 TH/MM3 (150-450) Creatinine 1.25 MG/DL (0.50-1.00) 1.19 MG/DL (0.50-1.00) Albumin 2.6 GM/DL (3.4-5.0) 2.7 GM/DL (3.4-5.0) Alkaline Phosphatase 649 U/L (45-117) 717 U/L (45-117) Aspartate Amino Transf (AST/SGOT) 224 U/L (15-37) 269 U/L (15-37) Alanine Aminotransferase (ALT/SGPT) 344 U/L (10-53) 379 U/L (10-53) Total Bilirubin 1.6 MG/DL (0.2-1.0) 1.5 MG/DL (0.2-1.0) Estimat Glomerular Filtration Rate 44 ML/MIN (>89) 47 ML/MIN (>89) Potassium Level 3.4 MEQ/L (3.5-5.1) Imaging Last Impressions GI Procedure 06/13/17 0000 Signed Impressions: Service Date/Time: Tuesday, June 13, 2017 09:49 - CONCLUSION: ERCP as above. Robby Asif MD Cholangiopancreatography MRI 06/12/17 0000 Signed Impressions: Service Date/Time: Monday, June 12, 2017 11:59 - CONCLUSION: 1. There is a punctate filling defect in the distal common duct most consistent with a small retained stone. 2. The patient is post cholecystectomy. There is a drain in place. 3. There are postoperative changes in the subcutaneous soft tissues of the right flank. Salbador Courtney MD Hepatobiliary Scan Nuclear Medicine 06/11/17 0000 Signed Impressions: Service Date/Time: Sunday, June 11, 2017 10:05 - CONCLUSION: 1. Abnormal hepatic parenchymal phase with significant retention of the radiotracer within the parenchyma. This suggests significant hepatocellular dysfunction. 2. The presence of activity in the small bowel excludes complete obstruction of the common bile duct. 3. 3. 3. 3. Differential consideration for the retained hepatocellular activity include hepatic cellular dysfunction and partial obstruction. 4. There is insufficient bowel activity to either include or exclude a leak, but no activity is seen outside of bowel. oRbby Asif MD Abdomen/Pelvis CT 06/08/17 0000 Signed Impressions: Service Date/Time: May 18:05 - CONCLUSION: 1. Postoperative cholecystectomy with drain in the right upper quadrant in the gallbladder bed. There is still some loculated air and trace fluid in the gallbladder bed as well as inflammatory or edematous changes in right upper quadrant fat. Trace free air is also present around the liver. No drainable fluid collections present. No biliary ductal dilatation. Royce Haynes MD Chest X-Ray 06/03/17 1321 Signed Impressions: Service Date/Time: Saturday, June 03, 2017 14:17 - CONCLUSION: No acute disease. No significant change has occurred. Lito Burnett MD Gall Bladder Ultrasound 06/03/17 0000 Signed Impressions: Service Date/Time: Saturday, June 03, 2017 15:08 - CONCLUSION: Sludge and stones in the gallbladder with thickened wall consistent with cholecystitis. Otherwise negative exam Lito Burnett MD PE at Discharge GENERAL: Well-nourished, well-developed patient. No acute distress. SKIN: Warm and dry. No rash. EYES: No scleral icterus. No injection or drainage. PERRLA. EOMI. HENT: Normocephalic. Atraumatic. MMM. NECK: No visible JVD or lymphadenopathy. CARDIOVASCULAR: Warm and well perfused. RESPIRATORY: Clear to auscultation. Normal respiratory effort. GASTROINTESTINAL: Abdomen nondistended. 3, 1 cm linear erythematous port site that are CDI. Tender to palpation of the right upper quadrant. No rebound or guarding. Bianchi's sign positive. BS present. MUSCULOSKELETAL: Strength grossly WNL. BACK: Without obvious deformity. NEURO/PSYCH: Afocal. Awake, alert, and oriented x3. Hospital Course Mrs Weir is a pleasant 56 y/o female with a PMHX of bipolar/MDD, hypertension, COPD, who presented with 3-4 days of vomiting and abdominal pain. She was found to have a thickened gallbladder on US and thought to have cholecystitis. A cholecystectomy was planned. This was slightly delayed because we wanted to make sure that there were no retained stones in the common bile duct. For this reason, a MRCP was performed which showed no stones of dilation of the bile ducts. She subsequently had her laparoscopic cholecystectomy and initially tolerated the procedure well. Her liver enzymes were trending up after the surgery, and she underwent a repeat MRCP and then ERCP. during ERCP she had a normal ampulla, 8 mm sphincterotomy, balloon seeps. On discharge, her pain was controlled and she was tolerating a diet. Her liver enzymes will be followed closely as an outpatient. Orders were placed. Pt Condition on Discharge: Good Discharge Disposition: Discharge Home Discharge Instructions DIET: Follow Instructions for: As Tolerated, No Restrictions Additional Diet Instructions: Pt should advance diet slowly Activities you can perform: Regular-No Restrictions Follow up Referrals: Gastroenterology - 2 Weeks with Zoie Rai MD PCP Follow-up - 1 Week Surgical - 06/15/17 with Steve Moon MD Appt set for Jun 15 at 3:10PM New Orders: CBC WITH DIFF - 1 Week COMP MET PROF (CMP) - 06/14/17 COMP MET PROF (CMP) - 1 Week New Medications: Fluoxetine (Fluoxetine) 20 Mg Capsule 20 MG PO DAILY, #30 CAP 0 Refills Oxycodone (Roxicodone) 5 Mg Tab 5 MG PO Q8H PRN for PAIN, #15 TAB 0 Refills Sennosides-Docusate Sodium (Docusate Sodium-Senna) 8.6-50 Mg Tab 1 TAB PO BID for Prevent Constipation, #30 TAB 0 Refills Lisinopril (Lisinopril) 10 Mg Tab 10 MG PO DAILY, #45 TAB 0 Refills Continued Medications: Albuterol 8.5 GM Inh (Proair Hfa 8.5 GM Inh) 90 Mcg/Act Aer 1 PUFF INH Q6HR PRN for SHORTNESS OF BREATH, #1 INHALER 4 Refills 108 mcg/actuation Aripiprazole (Aripiprazole) 10 Mg Tab 5 MG PO DAILY, #30 TAB [address] (Aspirin EC Low Dose) 81 Mg Tabec 81 MG PO DAILY, TAB Diphenhydramine HCl (Benadryl Allergy) 25 Mg Tablet 25 MG PRN for allergies Estradiol Vaginal Tab (Yuvafem Vaginal Tab) 10 Mcg Tab 10 MCG VAGINAL 2XWEEK for Estrogen Supplements, TAB 0 Refills Linaclotide (Linzess) 145 Mcg Cap 145 MCG PO DAILY, CAP 0 Refills Lovastatin (Lovastatin) 20 Mg Tab 20 MG PO HS for Cholesterol Management, #30 TAB 5 Refills Mirabegron (Myrbetriq) 50 Mg Tab 50 MG PO DAILY for Urinary Symptom Managemen, #30 TAB 11 Refills Omeprazole (Omeprazole) 20 Mg Cap 20 MG PO BID, #60 CAP 5 Refills Tizanidine (Tizanidine) 4 Mg Cap 4 MG PO TID for Muscle Spasm, CAP 0 Refills Trazodone (Trazodone) 100 Mg Tablet 200 MG PO HS PRN for SLEEP, #90 TAB 0 Refills Discontinued Medications: Fluoxetine (Fluoxetine) 40 Mg Cap 40 CAP PO DAILY, #30 CAP 0 Refills Hydrocodone-Acetaminophen (Hydrocodone-Acetaminophen) 10-325 mg Tab PO Q4H PRN for PAIN, TAB 0 Refills Hydroxyzine HCl (Hydroxyzine HCl) 10 Mg Tab 10 MG PO TID PRN for bid, TAB 0 Refills Ibuprofen (Ibuprofen) 800 Mg Tab 800 MG PO TID for Arthritis Pain, TAB 0 Refills Meloxicam (Meloxicam) 15 Mg Tab 15 MG PO DAILY for Arthritis Pain, #30 TAB 0 Refills Oxycodone HCl/Acetaminophen (Oxycodone-Acetaminophen 5-325) 5 Mg-325 Mg Tablet 1 TAB PO Q4H PRN for PAIN SCALE 1 TO 5, #30 TAB Prabhu Blackwood MD, R3 Jun 14, 2017 11:00
[2017-06-14 15:53] LABS: ENDOMYSIAL AB SCREEN ND (NEGATIVE); ENDOMYSIAL AB TITER ND (<1:5)
[2017-06-15 23:53] LABS: ALK PHOS BONE (ISOENZYMES) 34 % (28-66); ALK PHOS INTESTINE (ISOENZYME) 0 % (1-24); ALK PHOS LIVER (ISOENZYME) 66 % (25-69); ALK PHOS PLACENTAL ISOENZYME 0 % (UNDETECTABLE); MITOCHONDRIAL ABS LESS THAN 20.0 U (<=20.0)
[2017-06-16 15:52] LABS: CERULOPLASMIN 45 mg/dL (18-53)
== END 2017-06-13 18:08 | disposition home health service (06) | DRG 419 ==
LOC: NEPC 12:46 → NEDA 16:27 → N06A 17:22
PROVIDERS: ADMIT Family Medicine; ATTEND Family Medicine
PROC: BF131ZZ Fluoroscopy of Gallbladder and Bile Ducts using Low Osmolar Contrast (ICD-10-PCS; 2017-06-06)
PROC: 0FT44ZZ Resection of Gallbladder, Percutaneous Endoscopic Approach (ICD-10-PCS; principal; 2017-06-06 16:28)
PROC: 0F798ZZ Dilation of Common Bile Duct, Via Natural or Artificial Opening Endoscopic (ICD-10-PCS; 2017-06-13)
DX: K80.63 Calculus of gallbladder and bile duct with acute cholecystitis with obstruction (principal); K27.9 Peptic ulcer, site unspecified, unspecified as acute or chronic, without hemorrhage or perforation; F32.9 Major depressive disorder, single episode, unspecified; J44.9 Chronic obstructive pulmonary disease, unspecified; F17.210 Nicotine dependence, cigarettes, uncomplicated; Q76.0 Spina bifida occulta; E78.5 Hyperlipidemia, unspecified; K21.9 Gastro-esophageal reflux disease without esophagitis; M19.90 Unspecified osteoarthritis, unspecified site; F41.9 Anxiety disorder, unspecified; N32.81 Overactive bladder; Z82.49 Family history of ischemic heart disease and other diseases of the circulatory system; Z86.010 Personal history of colon polyps; G89.29 Other chronic pain; I10 Essential (primary) hypertension
CPT/HCPCS: 71045; 74177; 74181; 74330; 76000; 76377; 76705; 76937; 78226; 80048; 80053; 80074; 80076; 82103; 82390; 82550; 82728; 82784; 82977; 83516; 83520; 83540; 83550; 83690; 84080; 84484; 85025; 85027; 85610; 85730; 86038; 86255; 87040; 88304; 93005; 94150; 94640; 94664; 96361; 96374; 96375; A9537; C1769; C9113; J0131; J0360; J1100; J1170; J2060; J2270; J2405; J2543; J2710; J3010; J7030; J7120; J7613; Q9963; Q9967

== ENCOUNTER → 2017-06-29 | Outpatient (CLI) | payer MEDICARE, MEDICAID ==
[~2017-06-29] MED LIST changes: +DOCU8.6T PO; +FLUO20CA12 PO; -FLUO40CA PO; -HYDR-3583 PO; -HYDR-755 PO; -IBUP1TAB7 PO; +LISI10TA3 PO; -MELO15TA20 PO; +OXYC1TAB13 PO; -OXYC1TAB63 PO; -PENI500T PO
[2017-06-29 13:47] LABS: AUTOMATED NEUTROPHIL # 6.2 TH/MM3 (1.8-7.7); BASOPHIL % 0.4 % (0.0-2.0); EOSINOPHIL # 0.4 TH/MM3 (0-0.4); EOSINOPHIL % 3.6 % (0.0-4.0); HEMATOCRIT 43.3 % (35.0-46.0); HEMOGLOBIN 14.4 GM/DL (11.6-15.3); LYMPH % 30.6 % (9.0-44.0); LYMPHOCYTE # 3.3 TH/MM3 (1.0-4.8); MEAN CELL VOLUME 97.6 FL (80.0-100.0); MEAN CORPUSCULAR HEMOGLOBIN 32.5 PG (27.0-34.0); MEAN CORPUSCULAR HGB CONC 33.3 % (32.0-36.0); MEAN PLATELET VOLUME 9.5 FL (7.0-11.0); MONO % 7.5 % (0.0-8.0); MONOCYTE # 0.8 TH/MM3 (0-0.9); NEUT % 57.9 % (16.0-70.0); PLATELET COUNT 283 TH/MM3 (150-450); RED BLOOD COUNT 4.43 MIL/MM3 (4.00-5.30); RED CELL DISTRIBUTION WIDTH 14.8 % (11.6-17.2); WHITE BLOOD COUNT 10.7 TH/MM3 (4.0-11.0)
[2017-06-29 14:38] LABS: ALBUMIN 3.8 GM/DL (3.4-5.0); AST (GOT) 17 U/L (15-37); BICARBONATE 25.4 MEQ/L (21.0-32.0); BLOOD UREA NITROGEN 29 MG/DL (7-18); CALCIUM 9.7 MG/DL (8.5-10.1); CHLORIDE 107 MEQ/L (98-107); CREATININE 1.42 MG/DL (0.50-1.00); GLOMERULAR FILTRATION RATE 38 ML/MIN (>89); GLUCOSE,RANDOM 126 MG/DL (74-106); SODIUM (NA) 142 MEQ/L (136-145)
[2017-06-29 14:39] LABS: ALT (GPT) 40 U/L (10-53)
[2017-06-29 14:42] LABS: ALKALINE PHOSPHATASE 179 U/L (45-117); TOTAL BILIRUBIN ADULT 0.4 MG/DL (0.2-1.0); TOTAL PROTEIN 7.9 GM/DL (6.4-8.2)
== END ==
LOC: ELAB 10:50
PROVIDERS: ATTEND Surgery
DX: R53.83 Other fatigue (principal)
CPT/HCPCS: 36415; 80053; 85025

== ENCOUNTER 2017-09-23 17:50 | Emergency (ER) | payer MEDICARE, MEDICAID ==
[~2017-09-23] VITALS: Ht 165.1 cm; Wt 100.0 kg
[2017-09-23 17:53] VITALS: BP 145/91; PULSE 91; RESP 16; TEMP 98.3; O2SAT 97
[2017-09-23] MEDS ORDERED: LYRI50CA PO (18:27)
[2017-09-23] MEDS ORDERED: MELO15TA20 PO (18:27)
[2017-09-23] MEDS ORDERED: HYDR-3583 PO (18:27)
[2017-09-23] MEDS ORDERED: BUPR300T PO (18:27)
[2017-09-23] MEDS ORDERED: HYDR-755 PO (18:27)
--- NOTE | 2017-09-23 18:42 | PD ---
HPI Chief Complaint: Medical Clearance Time Seen by Provider: 18:04 Travel History International Travel<30 days: No Contact w/Intl Traveler<30days: No Traveled to known affect area: No History of Present Illness HPI 57-year-old female presents to the emergency department with complaint of increased hot flashes for 1 week. She states "my menopause is driving me crazy and giving me hot flashes." She also states that she started a new medication, Wellbutrin, a week ago and thinks the hot flashes may be related to the medication. She says she has to turn on her air conditioning and then 5 minutes later she has to turn on the heat. She denies fever, vomiting. Denies chest pain, shortness of breath. Has no other medical complaints. Symptoms are possibly aggravated by taking the Wellbutrin. No known relieving factors. Symptoms are mild in severity. Primary care provider is Dr. Garcia. Her psychiatrist is Dr. Baker. No known allergies. History of depression. PFSH Past Medical History Arthritis: No Asthma: Yes Anxiety: Yes Depression: Yes Heart Rhythm Problems: No Cancer: No Cardiovascular Problems: No High Cholesterol: Yes Chest Pain: No Congestive Heart Failure: No Diabetes: No Diminished Hearing: No Endocrine: No Gastrointestinal Disorders: Yes GERD: Yes Genitourinary: Yes (Incontinent of urine) Hepatitis: No Hiatal Hernia: No Immune Disorder: No Musculoskeletal: No Neurologic: Yes (spina bifida) Psychiatric: No Reproductive: No Respiratory: No Migraines: Yes Thyroid Disease: No Ulcer: Yes Menopausal: Yes Past Surgical History Abdominal Surgery: Yes (colonoscopy) AICD: No Cardiac Surgery: No Ear Surgery: No Endocrine Surgery: No Eye Surgery: No Genitourinary Surgery: No Gynecologic Surgery: No Hysterectomy: Yes Joint Replacement: No Oral Surgery: No Pacemaker: No Thoracic Surgery: No Other Surgery: No Social History Alcohol Use: No Tobacco Use: No Substance Use: No Allergies-Medications (Allergen,Severity, Reaction): Coded Allergies: No Known Allergies (Unverified , 09/23/17) Reported Meds & Prescriptions Reported Meds & Active Scripts Active Docusate Sodium-Senna (Sennosides-Docusate Sodium) 8.6-50 Mg Tab 1 Tab PO BID Omeprazole 20 Mg Cap 20 Mg PO BID Myrbetriq (Mirabegron) 50 Mg Tab 50 Mg PO DAILY Trazodone (Trazodone HCl) 100 Mg Tablet 200 Mg PO HS PRN Lovastatin 20 Mg Tab 20 Mg PO HS Proair Hfa 8.5 GM Inh (Albuterol Sulfate) 90 Mcg/Act Aer 1 Puff INH Q6HR PRN 108 mcg/actuation Reported Bupropion HCl ER 24 HR (Bupropion HCl) 300 Mg Tab 300 Mg PO DAILY Meloxicam 15 Mg Tab 15 Mg PO DAILY Lyrica (Pregabalin) 50 Mg Cap 50 Mg PO TID Hydroxyzine HCl 10 Mg Tab 10 Mg PO BID Hydrocodone-Acetaminophen 10-325 mg Tab 1 Tab PO Q4H PRN Aspirin EC Low Dose (Aspirin) 81 Mg Tabec 81 Mg PO DAILY Tizanidine (Tizanidine HCl) 4 Mg Cap 4 Mg PO TID Benadryl Allergy (Diphenhydramine HCl) 25 Mg Tablet 25 Mg PRN Linzess (Linaclotide) 145 Mcg Cap 145 Mcg PO DAILY Aripiprazole 10 Mg Tab 5 Mg PO DAILY Review of Systems Except as stated in HPI: all other systems reviewed are Neg Physical Exam Narrative GENERAL: Well-nourished, well-developed female patient, in no acute distress SKIN: Warm and dry. HEAD: Atraumatic. Normocephalic. EYES: Pupils equal and round. No scleral icterus. No injection or drainage. ENT: Mucosa pink and moist. Airway patent. NECK: Trachea midline. CARDIOVASCULAR: Regular rate and rhythm. No murmur appreciated. RESPIRATORY: No accessory muscle use. Breath sounds clear and equal bilaterally. GASTROINTESTINAL: Rounded. MUSCULOSKELETAL: No obvious deformities. No clubbing. No cyanosis. No edema. NEUROLOGICAL: Awake and alert. Oriented 3. No obvious cranial nerve deficits. Motor grossly within normal limits. Normal speech. PSYCHIATRIC: Appropriate mood and affect; insight and judgment normal. Data Data Last Documented VS Vital Signs Date Time Temp Pulse Resp B/P (MAP) Pulse Ox O2 Delivery O2 Flow Rate FiO2 09/23/17 17:53 98.3 91 16 145/91 (109) 97 MDM Medical Decision Making Medical Screen Exam Complete: Yes Emergency Medical Condition: Yes Medical Record Reviewed: Yes Differential Diagnosis Hot flashes, menopause, reaction to new medication Narrative Course 57-year-old female complaining of worsening of hot flashes after starting Wellbutrin a week ago. I told the patient she can stop the medication and follow-up with her psychiatrist on Monday, or continue the medication if she can handle the hot flashes and still follow-up with her psychiatrist on Monday for alternative therapy. Instructed patient to follow-up with psychiatrist. Instructed patient to follow up with primary care provider. Patient verbalizes understanding and agreement with treatment plan. Patient is medically cleared and stable for discharge. Discussed reasons to return to the emergency department. Patient agrees with treatment plan. The patients vital signs are stable and the patient is stable for outpatient follow-up and treatment. Patient discharged home, stable and in no acute distress. Diagnosis Primary Impression: Hot flashes Referrals: Primary Care Physician Psychiatrist Patient Instructions: General Instructions, Menopause (ED) Additional Instructions: Stop taking the Wellbutrin or wait until Monday when you see your psychiatrist and discuss alternative therapy Follow-up with primary care provider Return to the emergency department immediately for worsening of symptoms Med/Other Pt SpecificInfo: Med Stopped Disposition: DISCHARGE HOME Condition: Stable Nory Craig Sep 23, 2017 18:42
[2017-09-23 19:38] VITALS: BP 131/77
== END 2017-09-24 00:39 | disposition home or self-care (01) ==
LOC: NEPD 17:50
DX: N95.1 Menopausal and female climacteric states (principal); E78.00 Pure hypercholesterolemia, unspecified; K21.9 Gastro-esophageal reflux disease without esophagitis
CPT/HCPCS: 99281